=== PATIENT | female | born 1990 | race Caucasian/White ===

== ENCOUNTER 2017-02-01 11:13 | Emergency (ER) | payer BC, OTHER ==
[~2017-02-01] VITALS: Ht 165.1 cm; Wt 86.3 kg
[2017-02-01 11:14] VITALS: TEMP 36.8; Ht 165.1 cm; Wt 86.3 kg
[2017-02-01] MEDS ORDERED: SULF800T23 PO (11:33)
[2017-02-01] MEDS ORDERED: RANI300T2 PO (11:33)
[2017-02-01] MEDS ORDERED: BCPILLS PO (11:33)
[2017-02-01] MEDS ORDERED: PRLSR20 PO (11:33)
[2017-02-01] MEDS ORDERED: DIPH25TA32 PO (11:33)
[2017-02-01] MEDS ORDERED: CETI10TA10 PO (11:33)
[2017-02-01] MEDS ORDERED: PRED-301 PO (11:33)
[2017-02-01] MEDS ORDERED: CEFTRIAXONE SOD INJ 1 GM ADDVIAL IV STA (12:08)
--- NOTE | 2017-02-01 14:22 | DIAGNOSTIC IMAGING REPORT ---
LEFT LABIAL ULTRASOUND CLINICAL HISTORY: Labial mass COMPARISON STUDY: No previous studies for comparison. FINDINGS: There is left labial soft tissue edema. There are no focal fluid collections to indicate an abscess. No solid masses are visualized. IMPRESSION: 1. Left labial soft tissue edema. 2. No ultrasonographic evidence of abscess Electronically signed by: Jake Tesfaye M.D. 02/01/2017 2:21 PM Dictated Date/Time: 02/01/2017 2:19 PM
[2017-02-01] MEDS ORDERED: CEPH500C2 PO (15:13)
--- NOTE | 2017-02-01 15:14 | EMERGENCY ROOM VISIT NOTE ---
History First contact with patient: 11:38 Chief Complaint: INFECTION Stated Complaint: PAIN/SWELLING ON VAGINA Nursing Triage Summary: Patient states she got poison Jennifer 2 weeks ago, in her vaginal area. 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 Swelling external vaginal area per patient. History of Present Illness Patient is a 26-year-old white female who presents emergency department for evaluation of a tender, swollen lump in her left labial/pelvic region 2-3 days. Patient reports that she was at a campfire 2 weeks ago, fell into some weeds and did not realize that there were likely poison jennifer plants there when she fell. She developed a typical contact dermatitis primarily on her arms, chest, face and slightly on her upper thighs. She was seen by her primary care provider on several occasions for this. She received 2 doses of IM Solu-Medrol , one last week and one this week. She has been on oral prednisone as well. She was applying topical steroid cream and calamine lotion to the area, but after seeing her doctor this week she was encouraged to discontinue this and just use a topical Aveeno wash and oral Benadryl. She was also started on Bactrim DS 1 tablet twice daily 3 days ago for concerns regarding a superimposed cellulitis/impetigo. The patient noted a slightly tender, swollen lump in the left labial area 2 or 3 days ago. She tried applying warm compresses to the area. She was seen by the nurse practitioner at the supervisor mails office today, and they did not believe that it was "drainable." They were concerned it could be the beginnings of cellulitis, and referred her to the emergency department for IV antibiotics. Patient reports that the practitioner suggested Keflex therapy. The patient's is taking the prednisone, Benadryl, Bactrim and ranitidine as prescribed. She denies any urinary symptoms. No vaginal discharge. No fever or chills. She is on oral contraceptives and states that she is due for her menses next week. She does note that the poison jennifer dermatitis is scabbing over and is improving. Review of Systems Review of systems as per HPI. All other systems reviewed were negative. 10 systems reviewed. Past Medical/Surgical History Medical Problems: (1) Closed head injury (2) Environmental and seasonal allergies (3) GERD (gastroesophageal reflux disease) Electronic medical records are reviewed and summarized as above/below. See Problem List. Social History Smoking Status: Former Smoker Alcohol Use: occasionally Marital Status: Housing Status: lives with family Occupation Status: employed Current/Historical Medications Scheduled Control Pills ( Control Pills), 1 TAB PO DAILY Cephalexin Monohydrate (Keflex), 500 MG PO QID Cetirizine Hcl (Zyrtec), 10 MG PO DAILY Diphenhydramine Hcl (Diphenhydramine Hcl), 25 MG PO DAILY Prednisone (Prednisone), 0 PO UD Ranitidine Hcl (Zantac), 300 MG PO HS Sulfa/Trimethoprim (Bactrim Ds 800MG/160MG), 1 TAB PO BID Scheduled PRN Omeprazole (Prilosec), 20 MG PO DAILY PRN for Indigestion Allergies Coded Allergies: Molds & Smuts (Unverified Allergy, Unknown, ., 02/01/17) POLLEN (Unverified Allergy, Unknown, ., 02/01/17) Physical Exam Vital Signs Date Time Temp Pulse Resp B/P (MAP) Pulse Ox O2 Delivery O2 Flow Rate FiO2 02/01/17 15:20 68 18 142/95 100 02/01/17 13:45 74 18 127/85 98 Room Air 02/01/17 11:14 36.8 80 17 165/103 100 Room Air Physical Exam CONSTITUTIONAL: Patient is a pleasant, well-appearing 26-year-old white female who is awake and alert and in no acute distress. : Examination of the external genitalia show slight swelling of the left labia majora. There is a palpable masses noted on the left, slightly tender to palpation. There is no fluctuance or pointing. There is no increased redness, induration or overtly cellulitic changes. The patient does not appear to communicate with the vaginal vault. It does not appear consistent with atypical Bartholin's gland cyst/abscess. There is no palpable inguinal lymphadenopathy noted. INTEGUMENTARY: The patient has an erythematous, crusted over, slightly excoriated rash noted on her arms, chest and face slightly. No vesicles are noted. No drainage present. No cellulitic changes. LYMPH: No lymphadenopathy. Medical Decision & Procedures ER Provider Diagnostic Interpretation: LEFT LABIAL ULTRASOUND CLINICAL HISTORY: Labial mass COMPARISON STUDY: No previous studies for comparison. FINDINGS: There is left labial soft tissue edema. There are no focal fluid collections to indicate an abscess. No solid masses are visualized. IMPRESSION: 1. Left labial soft tissue edema. 2. No ultrasonographic evidence of abscess Medications Administered Medications (Trade) Dose Ordered Sig/Jennifer Route Start Time Stop Time Status Last Admin Dose Admin Ceftriaxone Sodium (Rocephin Inj) 1 gm NOW STAT IV 02/01/17 12:08 02/01/17 12:10 DC 02/01/17 12:20 1 GM ED Course The patient was seen and evaluated as above. IV lock was initiated and she was given ceftriaxone 1 g IV. Ultrasound of the point of interest at the left labial area was ultrasounded and noted soft tissue swelling, no evidence for localized abscess or drainable fluid collection. Patient is already on Bactrim. She will be placed on Keflex as well. Differential diagnoses entertained include abscess, cellulitis, sebaceous cysts, Bartholin gland cyst/ abscess, among others. She does not have any evidence for Ceci's gangrene. She was encouraged to apply warm compresses, take the antibiotics as prescribed, and return to the emergency department for worsening symptoms. Medication reconciliation: I attest that I have personally reviewed the patient' s current medication list. Blood pressure screening: Patient was found to have a slightly elevated blood pressure due to circumstances. I do not believe that the patient requires hypertension monitoring. Medical Decision See Emergency Department course. Impression Primary Impression: Swelling of labia Departure Information Prescriptions Cephalexin Monohydrate (KEFLEX) 500 Mg Cap 500 MG PO QID, #40 CAP Prov: Zina Logan PA 02/01/17 Referrals Nitin Cabrera M.D. (PCP) Patient Instructions My [facility] Additional Instructions Cephalexin(Keflex) 500mg: Take one pill four times daily for 10 days for your skin infection. All antibiotics can cause diarrhea. If this occurs and you feel worse or it does not resolve in 1-2 days follow up with your doctor or return to the Emergency Department as this could be signs of serious underlying problems. Any medication can cause an allergic reaction, stop the pills immediately and return to the ER for rash, hives, breathing difficulties, or swelling. Continue Bactrim as previously prescribed. Ibuprofen(Motrin, Advil) may be used for fever or pain. Use 600mg every six hours as needed. Take with food. Avoid using more than 2400mg in a 24 hour period. Do not use 2400mg per day for more than three consecutive days without physician direction. Prolonged inappropriate use can lead to stomach upset or ulcers. (AND/OR) Acetaminophen(Tylenol) may be used for fever or pain. Use 1000mg every six hours as needed. Avoid using more than 3000mg in a 24 hour period. Warm compresses to the affected area 4 times daily for 15-20 minutes. Rest and drink plenty of fluids. Continue current medications. Return to the ER for severe pain, persistent fevers, spreading redness, or any worsening of your condition. Follow up with your primary physician within 2-3 days for a recheck of the current condition.
[2017-02-01 15:20] VITALS: BP 142/95; PULSE 68; O2SAT 100
== END 2017-02-01 15:21 | disposition home or self-care (01) ==
LOC: C.EDB 11:14 → C.EDC 15:21
DX: N76.89 Other specified inflammation of vagina and vulva (principal); Z79.3 Long term (current) use of hormonal contraceptives; K21.9 Gastro-esophageal reflux disease without esophagitis; Z87.891 Personal history of nicotine dependence; Z79.899 Other long term (current) drug therapy

== ENCOUNTER 2019-07-28 16:05 | Inpatient (IN) ==
[2019-07-28 17:27] LABS: Basophils # (auto) 0.03 K/uL (0-0.2); Basophils % (auto) 0.2 %; Eosinophils # (auto) 0.09 K/uL (0-0.5); Eosinophils % (auto) 0.6 %; Hemoglobin 13.2 g/dL (12.0-16.0); Immature Granulocytes # (auto) 0.11 K/uL (0.00-0.02); Immature Granulocytes % (auto) 0.7 %; Lymphocytes # (auto) 2.46 K/uL (1.2-3.4); Lymphocytes % (auto) 15.8 %; Mean Corpuscular Hemoglobin 32.9 pg (25-34); Mean Corpuscular Volume 94.8 fL (80-100); Mean Platelet Volume 11.2 fL (7.4-10.4); Monocytes # (auto) 1.17 K/uL (0.11-0.59); Monocytes % (auto) 7.5 %; Neutrophils % (auto) 75.2 %; Platelet Count 225 K/uL (130-400); RDW Coefficient of Variation 13.1 % (11.5-14.5); RDW Standard Deviation 44.9 fL (36.4-46.3); Red Blood Count 4.01 M/uL (4.2-5.4); White Blood Count 15.56 K/uL (4.8-10.8)
[2019-07-28 17:28] LABS: Mean Corpuscular Hgb Conc 34.7 g/dL (32-36)
[2019-07-28 17:52] LABS: Albumin Level 2.6 gm/dl (3.4-5.0); BUN Creatinine Ratio 19.7 (10-20); Calcium 8.8 mg/dl (8.5-10.1); Creatinine Clr Calc Pharmacy 169.6 ml/min; Est GFR (African American) 139.3; Est GFR (Non-African American) 120.2; Potassium 3.7 mmol/L (3.5-5.1); Uric Acid 4.9 mg/dl (2.6-7.2)
[2019-07-28 17:55] LABS: Albumin Globulin Ratio 0.7 (0.9-2); Bilirubin Direct 0.1 mg/dl (0-0.2); Bilirubin,Total 0.3 mg/dl (0.2-1); Globulin 3.7 gm/dl (2.5-4.0); Total Protein 6.3 gm/dl (6.4-8.2)
[2019-07-28 19:02] LABS: Creatinine Urine Random 55.2 mg/dl; Protein Creatinine Ratio Urine 0.6 (0-0.2); Total Protein Urine Random 33.8 mg/dl (0-11.9)
[2019-07-28] MEDS ORDERED: DINOPROSTONE 10 MG INSERT PV ONE (20:13)
[2019-07-28] MEDS ORDERED: OXYTOCIN 30 UNITS/500 ML BAG IV PRN (20:13)
--- NOTE | 2019-07-28 20:21 | Obstetrical Progress Note ---
Date of Service July 28, 2019 Results & Data Vital Signs (Past 12 Hours) Vital Signs Temp Pulse Resp BP 07/28/19 19:49 96 H 154/92 H 07/28/19 19:31 100 H 157/98 H 07/28/19 19:26 36.8 C 18 157/98 H 07/28/19 19:19 104 H 153/96 H 07/28/19 18:49 99 H 157/95 H 07/28/19 18:07 103 H 152/89 H 07/28/19 17:52 95 H 148/92 H 07/28/19 17:37 93 H 148/97 H 07/28/19 17:25 90 162/101 H 07/28/19 17:07 102 H 149/95 H 07/28/19 17:00 36.7 C 20 07/28/19 16:52 98 H 160/100 H 07/28/19 16:38 36.7 C 98 H 20 155/93 H 07/28/19 16:24 98 H 167/100 H
--- NOTE | 2019-07-28 21:37 | Obstetrical Progress Note ---
Date of Service July 28, 2019 Physical Exam Physical Exam: Cervidil placed vaginally. Results & Data Vital Signs (Past 12 Hours) Vital Signs Temp Pulse Resp BP 07/28/19 21:18 98 H 164/95 H 07/28/19 20:19 93 H 151/100 H 07/28/19 19:49 96 H 154/92 H 07/28/19 19:31 100 H 157/98 H 07/28/19 19:26 36.8 C 18 157/98 H 07/28/19 19:19 104 H 153/96 H 07/28/19 18:49 99 H 157/95 H 07/28/19 18:07 103 H 152/89 H 07/28/19 17:52 95 H 148/92 H 07/28/19 17:37 93 H 148/97 H 07/28/19 17:25 90 162/101 H 07/28/19 17:07 102 H 149/95 H 07/28/19 17:00 36.7 C 20 07/28/19 16:52 98 H 160/100 H 07/28/19 16:38 36.7 C 98 H 20 155/93 H 07/28/19 16:24 98 H 167/100 H
[2019-07-28] MEDS ORDERED: VALACYCLOVIR HCL 500 MG TABLET PO ONE (23:32)
[2019-07-28] MEDS ORDERED: DOCUSATE SODIUM 100 MG CAP PO ONE (23:36)
[2019-07-28] MEDS ORDERED: PRENATAL VITAMIN 1 TAB PO ONE (23:37)
--- NOTE | 2019-07-29 10:50 | Obstetrical Progress Note ---
Date of Service July 29, 2019 Subjective Induction for Preeclampsia. pt received Cervidil yesterday Bp stable Am labs pending FHR; CAT1 Ctx; minimal VE; /50/-3 bedside sono; Vt Cytotec Pt agrees with plan Results & Data Vital Signs (Past 12 Hours) Vital Signs Temp Pulse Resp BP 07/29/19 10:33 87 138/67 07/29/19 09:28 94 H 130/87 07/29/19 08:20 81 139/76 07/29/19 07:30 92 H 119/69 07/29/19 07:25 36.9 C 20 07/29/19 06:14 83 142/78 H 07/29/19 06:12 88 172/102 H 07/29/19 05:38 85 150/94 H 07/29/19 04:46 36.8 C 85 144/68 H 07/29/19 03:46 86 139/87 07/29/19 02:40 90 125/83 07/29/19 01:34 87 135/85 07/29/19 00:47 84 139/89 07/28/19 23:43 96 H 138/61 07/28/19 23:41 90 183/72 H 07/28/19 23:00 36.8 C 85 16 149/98 H
[2019-07-29] MEDS: miSOPROStoL 50 MCG TAB PO SCH ×2 (11:21→15:47)
[2019-07-29 11:25] LABS: Basophils # (auto) 0.03 K/uL (0-0.2); Basophils % (auto) 0.2 %; Eosinophils # (auto) 0.09 K/uL (0-0.5); Eosinophils % (auto) 0.7 %; Hematocrit (blood only) 37.9 % (37-47); Hemoglobin 12.9 g/dL (12.0-16.0); Immature Granulocytes # (auto) 0.07 K/uL (0.00-0.02); Immature Granulocytes % (auto) 0.6 %; Lymphocytes # (auto) 1.86 K/uL (1.2-3.4); Lymphocytes % (auto) 14.8 %; Mean Corpuscular Hemoglobin 32.8 pg (25-34); Mean Corpuscular Volume 96.4 fL (80-100); Mean Platelet Volume 11.1 fL (7.4-10.4); Monocytes # (auto) 1.11 K/uL (0.11-0.59); Monocytes % (auto) 8.8 %; Neutrophils # (auto) 9.43 K/uL (1.4-6.5); Neutrophils % (auto) 74.9 %; Platelet Count 226 K/uL (130-400); RDW Coefficient of Variation 13.2 % (11.5-14.5); RDW Standard Deviation 45.6 fL (36.4-46.3); Red Blood Count 3.93 M/uL (4.2-5.4); White Blood Count 12.59 K/uL (4.8-10.8)
[2019-07-29 11:42] LABS: Albumin Level 2.3 gm/dl (3.4-5.0); BUN Creatinine Ratio 15.5 (10-20); Calcium 8.9 mg/dl (8.5-10.1); Creatinine Clr Calc Pharmacy 172.4 ml/min; Est GFR (Non-African American) 120.8
[2019-07-29 11:44] LABS: Albumin Globulin Ratio 0.7 (0.9-2); Bilirubin,Total 0.3 mg/dl (0.2-1); Globulin 3.4 gm/dl (2.5-4.0); Total Protein 5.7 gm/dl (6.4-8.2)
[2019-07-29] MEDS ORDERED: VALACYCLOVIR HCL 500 MG TABLET PO ONE (17:35)
--- NOTE | 2019-07-29 21:37 | Obstetrical Progress Note ---
Date of Service July 29, 2019 Subjective Pt doing well No complaints FHR; CAT1 Ctx 1-2mins will start Pitocin Results & Data Vital Signs (Past 12 Hours) Vital Signs Temp Pulse Resp BP 07/29/19 20:39 85 143/98 H 07/29/19 19:36 84 155/93 H 07/29/19 19:35 36.8 C 18 07/29/19 18:03 86 147/90 H 07/29/19 15:47 36.7 C 88 20 140/95 07/29/19 13:40 83 149/94 H 07/29/19 12:27 94 H 147/91 H 07/29/19 11:22 36.7 C 93 H 20 140/90 07/29/19 10:33 87 138/67
[2019-07-29] MEDS ORDERED: OXYTOCIN 30 UNITS/500 ML BAG IV PRN (22:57)
[2019-07-30] MEDS: LACTATED RINGER'S 1,000 ML IV PRN ×5 (00:05→18:38)
[2019-07-30] MEDS ORDERED: fentaNYL 2MCG/ML ROPIV 1.25MG/ML 100 ML BAG EPI ONE (05:00)
[2019-07-30] MEDS ORDERED: BUPIVACAINE 0.25% 30 ML VIAL ONE (05:00)
[2019-07-30] MEDS ORDERED: ePHEDrine sulfate 50 MG/ML AMP ONE (05:00)
[2019-07-30] MEDS ORDERED: fentaNYL citrate 100 MCG/2 ML VIAL ONE (05:00)
--- NOTE | 2019-07-30 05:03 | Obstetrical Progress Note ---
Date of Service July 30, 2019 Subjective Called to evaluate pt with moderate bleeding Pit; 18Mu Pitocin d/batsheva and IVF inc to 999/hr VE: 4/50/-2 with moderate amount of clots FHR; Poor tracing quality scalp and IUPC placed FHR is CAT1 and ctx 1-2mins Placenta abruption labs ordered Results & Data Vital Signs (Past 12 Hours) Vital Signs Temp Pulse Resp BP 07/30/19 03:46 89 145/87 H 07/30/19 03:43 36.7 C 18 07/30/19 02:49 82 139/87 07/30/19 01:46 80 142/90 H 07/30/19 00:37 78 138/85 07/29/19 23:25 36.7 C 18 07/29/19 23:24 85 136/81 07/29/19 21:54 83 154/102 H 07/29/19 21:51 83 175/109 H 07/29/19 20:39 85 143/98 H 07/29/19 19:36 84 155/93 H 07/29/19 19:35 36.8 C 18 07/29/19 18:03 86 147/90 H
[2019-07-30 05:23] LABS: Basophils # (auto) 0.03 K/uL (0-0.2); Basophils % (auto) 0.2 %; Eosinophils # (auto) 0.14 K/uL (0-0.5); Eosinophils % (auto) 0.8 %; Hematocrit (blood only) 38.1 % (37-47); Hemoglobin 13.1 g/dL (12.0-16.0); Immature Granulocytes # (auto) 0.19 K/uL (0.00-0.02); Lymphocytes # (auto) 2.09 K/uL (1.2-3.4); Lymphocytes % (auto) 11.5 %; Mean Corpuscular Hemoglobin 32.9 pg (25-34); Mean Corpuscular Volume 95.7 fL (80-100); Monocytes # (auto) 1.26 K/uL (0.11-0.59); Monocytes % (auto) 6.9 %; Neutrophils # (auto) 14.46 K/uL (1.4-6.5); Neutrophils % (auto) 79.6 %; Platelet Count 207 K/uL (130-400); RDW Coefficient of Variation 13.1 % (11.5-14.5); RDW Standard Deviation 45.3 fL (36.4-46.3); Red Blood Count 3.98 M/uL (4.2-5.4); White Blood Count 18.17 K/uL (4.8-10.8)
[2019-07-30 05:31] LABS: Mean Corpuscular Hgb Conc 34.4 g/dL (32-36)
--- NOTE | 2019-07-30 05:34 | Anesthesiology Consultation ---
Date of Service July 30, 2019 Assessment & Plan Chart Review Chart Review: Acceptable Risk for Surgery, Patient NOT seen in Pre Admission Testing and Acceptable Risk for Labor Epidural Consults Requested none ASA ASA3 Proposed Anesthesia Anesthesia Type: General and Labor Epidural Risk / Benefits Reviewed With: PT / POA / Parent / Guardian, Accepts Plan and Informed Consent Obtained History Height/Weight Height: 5 ft 5 in Weight: 118.841 kg Allergies Allergy/AdvReac Type Severity Reaction Status Date / Time mold Allergy Unknown . Verified 07/28/19 17:44 pollen extracts Allergy Unknown . Verified 07/28/19 17:44 Medications Home Medications Medication Instructions Recorded Confirmed Last Taken cetirizine [Zyrtec] 10 mg PO DAILY 07/28/19 07/28/19 07/27/19 21:00 docusate sodium [Colace] 100 mg PO DAILY 07/28/19 07/28/19 07/27/19 21:00 vit-iron fum-folic ac 1 tab PO DAILY 07/28/19 07/28/19 07/27/19 21:00 [ Vitamin] valacyclovir [Valtrex] 500 mg PO DAILY 07/28/19 07/28/19 07/27/19 21:00 Active Medications Generic Name Dose Route Start Last Admin Trade Name Freq PRN Reason Stop Dose Admin Lactated Ringer's 1,000 mls @ 125 mls/hr 07/28/19 20:13 07/30/19 00:05 Lr IV 07/30/19 20:12 125 mls/hr .Q8H PRN Administration L&D Protocol Protocol Oxytocin 30 units in 500 mls @ 18 mls/hr 07/29/19 22:57 07/30/19 04:15 Pitocin IV 07/31/19 22:56 1.08 units/hr .Q24H PRN 18 mls/hr Labor Induction/Augmentation Titration Protocol 1.08 UNITS/HR Misoprostol 50 mcg 07/29/19 12:00 07/29/19 15:47 Cytotec PO 08/28/19 11:59 50 mcg Q4 HUMBERTO Administration NPO Date Last Intake of Fluids: 07/30/19 Time Last Intake of Fluids: 04:00 Date Last Intake of Solids: 07/29/19 Time Last Intake of Solids: 20:00 Past Medical History Medical History Migraine Exercise / Class Metabolic Activity II 4-5 Yardwork/Stairs/Walk up hill Past Anesthesia History No Hx of Anesthesia Complications and No Family Hx of Anesthesia Complications History of PONV No Hx of PONV and No Hx of Motion Sickness Social History Smoking Status: Former smoker Hx Alcohol Use: No Hx Substance Use: No substance use type: does not use Physical Exam Vital Signs Last Vital Signs Temp 36.7 C 07/30/19 03:43 Pulse 110 H 07/30/19 05:30 Resp 18 07/30/19 03:43 BP 140/96 07/30/19 05:22 Pulse Ox 89 L 07/30/19 05:30 Constitutional + morbidly obese ENMT Mouth: no dentition abnormality Thyromental Distance: < 3.5 Finger Breadths Mallampati Class: II Neck normal visual inspection and trachea midline; neck extension not limited Respiratory normal respiratory effort Auscultation: lungs clear to auscultation bilaterally Cardiovascular Rate/Rhythm: regular rate, regular rhythm and + tachycardic Heart Sounds: no murmur Musculoskeletal Spine: lumbar spine normal to inspection; normal cervical ROM Neurologic moves all extremities Motor/Sensory: no sensory deficit Psychiatric Orientation: alert and oriented x 3 Testing Laboratory Results 07/30/19 05:09 07/29/19 10:56
[2019-07-30 05:56] LABS: Fibrinogen 351 mg/dl (184-400)
[2019-07-30] MEDS ORDERED: NALOXONE HCL 1 MG in SODIUM CHLORIDE 0.9% 1000ML 1,000 ML IV PRN (06:02)
[2019-07-30] MEDS ORDERED: ONDANSETRON INJ 2 MG/ML 2 ML VIAL IV PRN (06:02)
[2019-07-30] MEDS ORDERED: NALBUPHINE HCL INJ 10 MG/ML AMP IV PRN (06:02)
[2019-07-30] MEDS ORDERED: DiphenhydrAMINE HCL 50 MG/ML VIAL IV PRN (06:02)
[2019-07-30] MEDS ORDERED: ePHEDrine sulfate 50 MG/ML AMP IV PRN (06:02)
[2019-07-30] MEDS ORDERED: NALOXONE HCL 0.4 MG/1 ML VIAL/CARP IV PRN (06:02)
[2019-07-30] MEDS ORDERED: PROMETHAZINE HCL 25 MG in SODIUM CHLORIDE 0.9% 50 ML IV PRN (06:02)
[2019-07-30] MEDS: fentaNYL 2MCG/ML ROPIV 1.25MG/ML 100 ML BAG EPI PRN ×2 (12:57→18:36)
[2019-07-30] MEDS ORDERED: CALCIUM CARBONATE 500 MG CHEWABLE TAB PO PRN (15:52)
[2019-07-30] MEDS ORDERED: CALCIUM CARBONATE 500 MG CHEWABLE TAB ONE (15:53)
--- NOTE | 2019-07-30 16:27 | Obstetrical Progress Note ---
Date of Service July 30, 2019 Physical Exam Genitourinary: OB Exam Abdomen: + irregular contractions Manual OB Exam: + cervical dilation 10 cm, + cervical effacement 100%, + station 0 and + amniotic fluid bloody OB Exam Monitor Tracing: + scalp electrode used, + external uterine monitor used and + category I will let patient labor down and increase Oxytocin patient not able to feel contractions Results & Data Vital Signs (Past 12 Hours) Vital Signs Temp Pulse Resp BP Pulse Ox 07/30/19 16:23 101 H 92 07/30/19 16:18 102 H 94 07/30/19 16:15 99 H 119/74 07/30/19 16:13 113 H 95 07/30/19 16:08 102 H 93 07/30/19 16:03 106 H 94 07/30/19 16:00 105 H 124/84 07/30/19 15:58 110 H 93 07/30/19 15:53 121 H 91 07/30/19 15:49 118 H 80 L 07/30/19 15:48 108 H 95 07/30/19 15:45 114 H 122/80 07/30/19 15:43 119 H 93 07/30/19 15:38 117 H 79 L 07/30/19 15:33 115 H 96 07/30/19 15:30 109 H 133/86 07/30/19 15:28 133 H 84 L 07/30/19 15:26 112 H 83 L 07/30/19 15:23 112 H 96 07/30/19 15:22 118 H 160/84 H 07/30/19 15:18 121 H 98 07/30/19 15:17 133 H 169/86 H 07/30/19 15:16 121 H 84 L 07/30/19 15:13 111 H 100 07/30/19 15:08 107 H 97 07/30/19 15:03 103 H 99 07/30/19 15:02 100 H 161/99 H 07/30/19 14:58 108 H 99 07/30/19 14:57 36.7 C 20 07/30/19 14:53 101 H 100 07/30/19 14:48 100 H 97 07/30/19 14:45 96 H 144/92 H 07/30/19 14:43 95 H 97 07/30/19 14:38 97 H 96 07/30/19 14:33 107 H 97 07/30/19 14:31 101 H 18 145/87 H 07/30/19 14:28 96 H 95 07/30/19 14:23 112 H 95 07/30/19 14:18 107 H 95 07/30/19 14:16 95 H 20 133/84 07/30/19 14:13 89 93 07/30/19 14:08 95 H 92 07/30/19 14:03 93 H 96 07/30/19 14:00 101 H 20 133/87 07/30/19 13:58 94 H 95 07/30/19 13:53 91 H 94 07/30/19 13:48 96 H 95 07/30/19 13:45 93 H 136/86 07/30/19 13:43 96 H 96 07/30/19 13:38 99 H 97 07/30/19 13:33 99 H 98 07/30/19 13:30 98 H 18 140/90 07/30/19 13:28 107 H 91 07/30/19 13:23 94 H 97 07/30/19 13:18 107 H 96 07/30/19 13:16 88 132/82 07/30/19 13:13 99 H 96 07/30/19 13:08 94 H 96 07/30/19 13:05 37.0 C 20 07/30/19 13:03 106 H 100 07/30/19 13:02 102 H 134/93 07/30/19 12:58 96 H 97 07/30/19 12:57 18 07/30/19 12:53 98 H 96 07/30/19 12:48 98 H 96 07/30/19 12:45 98 H 130/90 07/30/19 12:43 103 H 95 07/30/19 12:38 94 H 93 07/30/19 12:33 89 94 07/30/19 12:30 93 H 20 127/82 07/30/19 12:28 87 94 07/30/19 12:23 89 94 07/30/19 12:18 109 H 94 07/30/19 12:15 90 137/83 07/30/19 12:13 90 95 07/30/19 12:08 92 H 97 07/30/19 12:03 94 H 98 07/30/19 12:00 93 H 146/88 H 07/30/19 11:58 101 H 98 07/30/19 11:53 98 H 97 07/30/19 11:48 98 H 97 07/30/19 11:45 94 H 16 146/92 H 07/30/19 11:43 92 H 98 07/30/19 11:38 97 H 98 07/30/19 11:33 91 H 97 07/30/19 11:30 100 H 147/88 H 07/30/19 11:28 101 H 98 07/30/19 11:23 98 H 99 07/30/19 11:18 96 H 98 07/30/19 11:15 98 H 147/82 H 07/30/19 11:13 100 H 98 07/30/19 11:08 102 H 97 07/30/19 11:03 95 H 98 07/30/19 11:02 100 H 148/91 H 07/30/19 10:58 36.8 C 20 07/30/19 10:57 103 H 97 07/30/19 10:52 96 H 95 07/30/19 10:47 111 H 97 07/30/19 10:45 98 H 139/91 07/30/19 10:42 95 H 96 07/30/19 10:37 105 H 99 07/30/19 10:32 103 H 97 07/30/19 10:30 102 H 145/87 H 07/30/19 10:27 93 H 97 07/30/19 10:22 93 H 98 07/30/19 10:18 91 H 162/100 H 07/30/19 10:17 99 H 18 163/99 H 98 07/30/19 10:12 100 H 99 07/30/19 10:07 98 H 98 07/30/19 10:02 93 H 98 07/30/19 10:00 116 H 124/81 07/30/19 09:57 85 96 07/30/19 09:52 99 H 96 07/30/19 09:47 95 H 136/85 98 07/30/19 09:42 90 94 07/30/19 09:37 82 96 07/30/19 09:32 95 H 96 07/30/19 09:31 92 H 18 132/80 07/30/19 09:27 93 H 97 07/30/19 09:22 89 97 07/30/19 09:17 87 98 07/30/19 09:16 90 124/72 07/30/19 09:12 90 98 07/30/19 09:07 118 H 98 07/30/19 09:05 36.7 C 18 07/30/19 09:02 94 H 97 07/30/19 09:00 99 H 121/59 L 07/30/19 08:57 101 H 96 07/30/19 08:52 109 H 99 07/30/19 08:47 92 H 97 07/30/19 08:46 95 H 133/79 07/30/19 08:42 99 H 98 07/30/19 08:37 95 H 98 07/30/19 08:32 102 H 97 07/30/19 08:31 92 H 18 131/79 07/30/19 08:30 103 H 142/83 H 07/30/19 08:27 101 H 99 07/30/19 08:26 108 H 83 L 07/30/19 08:22 92 H 98 07/30/19 08:17 94 H 84 L 07/30/19 08:16 91 H 22 136/74 07/30/19 08:12 96 H 100 07/30/19 08:07 97 H 100 07/30/19 08:02 98 H 135/73 96 07/30/19 08:00 95 H 18 81 L 07/30/19 07:57 93 H 99 07/30/19 07:52 98 H 99 07/30/19 07:47 96 H 98 07/30/19 07:45 96 H 136/74 07/30/19 07:43 96 H 133/80 07/30/19 07:42 90 99 07/30/19 07:37 95 H 99 07/30/19 07:36 101 H 85 L 07/30/19 07:32 105 H 98 07/30/19 07:29 106 H 82 L 07/30/19 07:27 97 H 98 07/30/19 07:22 94 H 98 07/30/19 07:17 97 H 98 07/30/19 07:15 36.7 C 18 07/30/19 07:14 86 119/66 07/30/19 07:12 84 95 07/30/19 07:09 86 122/66 07/30/19 07:07 87 98 07/30/19 07:06 88 126/67 07/30/19 07:02 87 97 07/30/19 07:00 86 18 120/66 07/30/19 06:57 88 99 07/30/19 06:55 99 H 124/73 07/30/19 06:52 103 H 94 07/30/19 06:49 90 122/72 07/30/19 06:47 94 H 99 07/30/19 06:44 91 H 114/68 07/30/19 06:42 87 100 07/30/19 06:41 90 118/67 07/30/19 06:36 89 117/68 100 07/30/19 06:35 36.7 C 07/30/19 06:31 95 H 90 07/30/19 06:30 95 H 18 112/60 94 07/30/19 06:26 81 101/52 L 07/30/19 06:25 86 98 07/30/19 06:24 94 H 92 07/30/19 06:21 94 H 119/80 07/30/19 06:20 86 99 07/30/19 06:15 96 H 98 07/30/19 06:14 82 104/59 L 07/30/19 06:12 86 112/57 L 07/30/19 06:10 88 109/63 97 07/30/19 06:08 87 111/57 L 07/30/19 06:07 87 92 07/30/19 06:06 83 102/59 L 07/30/19 06:05 87 98 07/30/19 06:04 83 111/62 07/30/19 06:02 83 104/58 L 07/30/19 06:00 80 18 96/55 L 96 07/30/19 05:57 81 103/50 L 07/30/19 05:55 81 96 07/30/19 05:54 80 79/52 L 94 07/30/19 05:52 71 87/53 L 07/30/19 05:51 67 85/54 L 07/30/19 05:50 73 94 07/30/19 05:48 68 94 07/30/19 05:46 75 99/67 L 07/30/19 05:45 75 94 07/30/19 05:43 67 94 07/30/19 05:41 62 94/59 L 07/30/19 05:40 71 95 07/30/19 05:37 104 H 92 07/30/19 05:35 96 H 95 07/30/19 05:30 110 H 89 L 07/30/19 05:25 93 H 96 07/30/19 05:24 103 H 93 07/30/19 05:22 106 H 140/96 07/30/19 05:20 105 H 99 07/30/19 05:15 95 H 97 07/30/19 05:10 93 H 96 07/30/19 05:05 92 H 97
[2019-07-30] MEDS ORDERED: ACETAMINOPHEN 325 MG TAB PO PRN ×2 (19:29→21:22)
[2019-07-30] MEDS ORDERED: BENZOCAINE 20% AER SPR 82.5 GM CAN EXT PRN (21:22)
[2019-07-30] MEDS ORDERED: SUPERCREAM 0.870% 15 GM JAR EXT PRN (21:22)
[2019-07-30] MEDS ORDERED: MEASLES, MUMPS & RUBELLA VIRUS VIAL SQ ONE (21:22)
[2019-07-30] MEDS ORDERED: OXYTOCIN 30 UNITS/500 ML BAG IV PRN (21:22)
[2019-07-30] MEDS ORDERED: bisacodyL 10 MG SUPP PR PRN (21:22)
[2019-07-30] MEDS ORDERED: DIPHTHERIA/TETANUS/PERTUSSIS 0.5 ML SYR/VIAL IM ONE (21:22)
[2019-07-30] MEDS ORDERED: HYDROCORTISONE ACETATE 25 MG SUPP PR PRN (21:22)
--- NOTE | 2019-07-30 21:28 | Delivery Summary ---
Vaginal Delivery Summary Date of Service July 30, 2019 Vaginal Delivery Summary Delivery Note live female NOA with delayed cord clamping Apgars 8/10 and weight pending. Cord blood obtained and placenta delivered spontaneously and intact. Velamentous insertion and submitted to pathology. NO tears. EBL 250 ml. Final sponge and instrument count are correct. Mom and baby stable.
--- NOTE | 2019-07-30 23:48 | Anesthesia Procedure Note ---
Date of Service July 30, 2019 Anesthesia Post Epidural Note Vital Signs Vital Signs: Temp Pulse Resp BP Pulse Ox 37.0 C 108 H 18 133/78 93 07/30/19 21:15 07/30/19 23:25 07/30/19 22:15 07/30/19 23:15 07/30/19 23:25 Notes Mental Status: alert / awake / arousable and participated in evaluation Nausea / Vomiting: adequately controlled Pain: adequately controlled Airway Patency, RR, SpO2: stable & adequate BP & HR: stable & adequate Hydration State: stable & adequate Neuraxial Anesthesia: was administered and sensory block is resolving Anesthetic Complications: no major complications apparent and Pt Satisfied with anesthetic care Epidural: Removed without complications and With tip intact
[2019-07-31] MEDS: IBUPROFEN 600 MG TAB PO PRN ×4 (03:49→20:59)
[2019-07-31 05:56] LABS: Hemoglobin 10.5 g/dL (12.0-16.0); Mean Corpuscular Hemoglobin 33.2 pg (25-34); Mean Corpuscular Volume 94.9 fL (80-100); Platelet Count 199 K/uL (130-400); RDW Coefficient of Variation 13.2 % (11.5-14.5); RDW Standard Deviation 46.4 fL (36.4-46.3); Red Blood Count 3.16 M/uL (4.2-5.4); White Blood Count 19.61 K/uL (4.8-10.8)
[2019-07-31] MEDS: PRENATAL VITAMIN 1 TAB PO SCH (08:21)
[2019-07-31] MEDS: DOCUSATE SODIUM 100 MG CAP PO SCH ×2 (08:21→20:59)
[2019-07-31] MEDS: FERROUS SULFATE 325 MG TAB PO SCH (08:23)
--- NOTE | 2019-07-31 08:42 | Obstetrical Progress Note ---
Date of Service July 31, 2019 Assessment & Plan (1) normal course: PPD #1 pt doing well Hypertension No headache, RUQ pain or SOB PIH labs pending Subjective Ambulation: ambulating normally Voiding: no voiding problems Passing Gas:: Yes Diet Tolerance:: regular diet Lochia:: Small Feeding Type:: breast feeding Review of Systems All systems reviewed & are unremarkable except as noted in HPI & below Physical Exam Constitutional WD/WN, vitals as above well developed and well nourished Eyes PERRL, conjunctivae normal, anicteric sclerae Neck trachea midline, no thyromegaly Respiratory normal respiratory effort, lungs clear to auscultation Auscultation: no crackles, no rales and no wheezes Cardiovascular RRR, no murmur, no edema Gastrointestinal (Abdomen) normal bowel sounds, soft, nontender, no hepatosplenomegaly Uterus is below umbilicus Musculoskeletal no cyanosis or clubbing, extremities motor strength 5/5 Skin no rashes, warm and dry Neurologic patellar DTR's 2+ bilat, sensation intact Psychiatric A+Ox3, euthymic affect Genitourinary normal external appearance Results & Data Vital Signs (Past 12 Hours) Vital Signs Temp Pulse Pulse Resp BP BP BP 07/31/19 04:30 143/95 H 07/31/19 03:50 36.9 C 101 H 16 155/101 H 154/100 H 07/30/19 23:50 36.8 C 98 H 16 144/94 H 07/30/19 23:25 108 H 07/30/19 23:20 108 H 07/30/19 23:15 108 H 18 133/78 07/30/19 23:10 105 H 07/30/19 23:05 106 H 07/30/19 23:00 93 H 134/88 07/30/19 22:55 105 H 07/30/19 22:50 99 H 07/30/19 22:45 96 H 18 124/77 07/30/19 22:40 105 H 07/30/19 22:35 106 H 07/30/19 22:30 104 H 132/79 07/30/19 22:25 105 H 07/30/19 22:20 105 H 07/30/19 22:15 106 H 18 146/96 H 07/30/19 22:10 103 H 07/30/19 22:05 114 H 12/12/19 22:00 108 H 139/92 07/30/19 21:55 110 H 07/30/19 21:50 108 H 07/30/19 21:45 112 H 136/88 07/30/19 21:40 119 H 07/30/19 21:35 108 H 07/30/19 21:34 111 H 07/30/19 21:30 101 H 18 132/83 07/30/19 21:25 109 H 07/30/19 21:20 118 H 07/30/19 21:15 37.0 C 116 H 18 124/76 07/30/19 21:10 115 H 07/30/19 21:05 132 H 07/30/19 21:02 18 07/30/19 21:00 146 H 07/30/19 20:59 131 H 07/30/19 20:55 141 H 07/30/19 20:54 163 H 07/30/19 20:50 125 H 07/30/19 20:48 123 H 07/30/19 20:45 115 H 18 146/91 H 07/30/19 20:43 126 H Pulse Ox 07/31/19 04:30 07/31/19 03:50 98 07/30/19 23:50 97 07/30/19 23:25 93 07/30/19 23:20 92 07/30/19 23:15 92 07/30/19 23:10 93 07/30/19 23:05 95 07/30/19 23:00 94 07/30/19 22:55 93 07/30/19 22:50 93 07/30/19 22:45 94 07/30/19 22:40 94 07/30/19 22:35 93 07/30/19 22:30 94 07/30/19 22:25 93 07/30/19 22:20 93 07/30/19 22:15 94 07/30/19 22:10 94 07/30/19 22:05 95 07/30/19 22:00 95 07/30/19 21:55 93 07/30/19 21:50 94 07/30/19 21:45 95 07/30/19 21:40 94 07/30/19 21:35 89 L 07/30/19 21:34 85 L 12/12/19 21:30 93 07/30/19 21:25 93 07/30/19 21:20 93 07/30/19 21:15 92 07/30/19 21:10 93 07/30/19 21:05 93 07/30/19 21:02 07/30/19 21:00 94 07/30/19 20:59 78 L 07/30/19 20:55 92 07/30/19 20:54 84 L 07/30/19 20:50 94 07/30/19 20:48 81 L 07/30/19 20:45 95 07/30/19 20:43 84 L
[2019-07-31] MEDS ORDERED: DOCUSATE SODIUM 100 MG CAP PO SCH (09:00)
[2019-07-31] MEDS ORDERED: NON-FORMULARY MEDICATION (Prenatal Vit-Iron Fum-Folic Ac [Prenatal Vitamin] 1 TAB) PO SCH (09:00)
[2019-07-31] MEDS ORDERED: CETIRIZINE HCL 10 MG TABLET PO SCH (09:30)
[2019-07-31 10:08] LABS: Albumin Level 1.8 gm/dl (3.4-5.0); BUN Creatinine Ratio 14.2 (10-20); Calcium 8.3 mg/dl (8.5-10.1); Creatinine Clr Calc Pharmacy 134.8 ml/min; Est GFR (African American) 117.4; Est GFR (Non-African American) 101.3; Potassium 3.8 mmol/L (3.5-5.1)
[2019-07-31 10:11] LABS: Albumin Globulin Ratio 0.6 (0.9-2); Bilirubin,Total 0.2 mg/dl (0.2-1); Globulin 3.1 gm/dl (2.5-4.0); Total Protein 4.9 gm/dl (6.4-8.2)
[2019-07-31] MEDS: CETIRIZINE HCL 10 MG TABLET PO SCH (10:53)
[2019-07-31] MEDS: LABETALOL HCL 200 MG TAB PO SCH ×2 (14:20→20:59)
[2019-07-31] MEDS ORDERED: bisacodyL 5 MG TABEC PO SCH (20:00)
[2019-08-01 06:48] LABS: Hemoglobin 9.4 g/dL (12.0-16.0)
[2019-08-01] MEDS: DOCUSATE SODIUM 100 MG CAP PO SCH (08:53)
[2019-08-01] MEDS: CETIRIZINE HCL 10 MG TABLET PO SCH (08:53)
[2019-08-01] MEDS: PRENATAL VITAMIN 1 TAB PO SCH (08:53)
[2019-08-01] MEDS: LABETALOL HCL 200 MG TAB PO SCH (08:53)
[2019-08-01] MEDS: IBUPROFEN 600 MG TAB PO PRN (08:54)
[2019-08-01] MEDS: FERROUS SULFATE 325 MG TAB PO SCH (09:07)
--- NOTE | 2019-08-01 09:50 | Obstetrical Progress Note ---
Date of Service August 01, 2019 Physical Exam Physical Exam: abdomen soft and non tender no calf tenderness ambulating well blood pressure controlled on labetalol 200 mg bid vaginal bleeding scant hgb 9.4 Results & Data Vital Signs (Past 12 Hours) Vital Signs Temp Pulse Resp BP BP 08/01/19 03:20 37 C 101 H 18 141/93 H 07/31/19 23:30 37 C 84 18 135/92
== END 2019-08-01 13:20 | disposition home or self-care (01) | DRG 807 ==
LOC: OPB 16:05 → 4S1 16:12 → 4S2 07-30 23:37

== ENCOUNTER 2023-03-02 16:44 | Inpatient (IN) ==
[2023-03-02 18:01] LABS: Basophils # (auto) 0.05 K/uL (0-0.2); Basophils % (auto) 0.4 %; Eosinophils # (auto) 0.07 K/uL (0-0.50); Eosinophils % (auto) 0.6 %; Immature Granulocytes # (auto) 0.05 K/uL (0.01-0.20); Immature Granulocytes % (auto) 0.4 %; Lymphocytes # (auto) 2.32 K/uL (1.2-3.4); Lymphocytes % (auto) 19.4 %; Mean Corpuscular Hgb Conc 34.3 g/dL (32.0-36.0); Mean Corpuscular Volume 90.4 fL (80.0-100.0); Mean Platelet Volume 10.7 fL (9.4-12.4); Monocytes # (auto) 0.71 K/uL (0.11-0.59); Monocytes % (auto) 5.9 %; Neutrophils # (auto) 8.74 K/uL (1.40-6.50); Neutrophils % (auto) 73.3 %; Platelet Count 232 K/uL (130-400); RDW Coefficient of Variation 13.4 % (11.5-14.5); RDW Standard Deviation 43.7 fL (36.4-46.3); Red Blood Count 3.87 M/uL (4.20-5.40); White Blood Count 11.94 K/ul (4.8-10.8)
[2023-03-02 18:18] LABS: Albumin Level 2.9 gm/dl (3.4-5.0); Bilirubin Direct 0.1 mg/dl (0-0.2); Bilirubin,Total 0.2 mg/dl (0.2-1.0)
[2023-03-02 18:24] LABS: Total Protein 5.4 gm/dl (6.0-8.3)
[2023-03-02 18:33] LABS: Creatinine Urine Random 109.4 mg/dl; Protein Creatinine Ratio Urine 3.2 (0-0.2); Total Protein Urine Random 350.3 mg/dl (0-11.9)
[2023-03-02] MEDS ORDERED: OXYTOCIN 30 UNITS/500 ML BAG IV PRN (19:51)
[2023-03-02] MEDS ORDERED: LIDOCAINE 1% LOCAL 20 ML VIAL INFIL PRN (19:51)
--- NOTE | 2023-03-02 20:11 | History & Physical Report ---
Date of Service March 02, 2023 Assessment & Plan (1) Pre-eclampsia during in third trimester, antepartum: Plan: Cervidil for cervical ripening IOL History of Present Illness Chief Complaint: elevated BP in office with proteinuria Primary Care Provider: Nitin Cabrera MD 33 F [id number] at 37.4 weeks admitted to L&D for IOL due to elevated BP in office and elevated protein/creatinine ratio. History of pre-eclampsia with last . GBS is negative. Allergies Allergy/AdvReac Type Severity Reaction Status Date / Time mold Allergy Mild . Verified 03/02/23 17:17 pollen extracts Allergy Mild . Verified 03/02/23 17:17 Home Medications Medication Instructions Recorded Confirmed Type cetirizine 10 mg tablet (Zyrtec) 10 mg PO DAILY 07/28/19 03/02/23 History docusate sodium 100 mg capsule 100 mg PO DAILY 07/28/19 03/02/23 History (Colace) vitamins-iron fumarate 27 1 tab PO DAILY 07/28/19 03/02/23 History mg iron-folic acid 0.8 mg tablet ( Vitamin) valacyclovir 500 mg tablet 500 mg PO DAILY 07/28/19 03/02/23 History (Valtrex) Patient History Medical History Anxiety GDM (gestational diabetes mellitus) Genital herpes Migraine SAB (spontaneous ) 2021 (spontaneous vaginal delivery) 2018 Social History Smoking Status: Never smoker Hx Alcohol Use: No Hx Substance Use: No Preferred Language: Slovak Communication Ability: Effective Special Deputy Sheriff Required: No Beliefs That Will Affect Care: None marital status: Current Living Situation: Spouse and Family Other Information That Helps Us Care for You: No Feels Safe at Home: Yes Safety Concerns: Feels Safe At This Time Assistive Devices: None OB History history of pre-eclampsia in past [employer] History history of Herpes on valtrex Review of Systems All systems reviewed & are unremarkable except as noted in HPI & below Physical Exam Constitutional: WD/WN, vitals as above Eyes: PERRL, conjunctivae normal, anicteric sclerae Respiratory: normal respiratory effort, lungs clear to auscultation Cardiovascular: RRR, no murmur, no edema Gastrointestinal (Abdomen): Inspection/Auscultation: abdomen normal to inspection Musculoskeletal: Extremities: extremities normal to inspection Skin: no rashes, warm and dry Neurologic: patellar DTR's 2+ bilat, sensation intact Psychiatric: A+Ox3, euthymic affect Genitourinary: no vaginal lesions, no adnexal mass OB Exam Abdomen: + fundal height and + vertex Manual OB Exam: + cervical dilation (cervix posterior/moderate to firm) fingertip, + cervical effacement 50% and + station high OB Exam Monitor Tracing: + external FHT monitor used, + external uterine monitor used, + category I and + normal FHT variability Results & Data Vital Signs (Past 12 Hours) Vital Signs Temp Pulse Resp BP 03/02/23 19:24 70 03/02/23 19:24 130/71 03/02/23 17:05 18 03/02/23 17:05 36.8 C 18 03/02/23 17:31 85 03/02/23 17:31 151/94 H 03/02/23 16:56 93 H 143/86 H Laboratory Results Laboratory Results - last 48 hr 03/02/23 03/02/23 03/02/23 17:20 17:42 17:42 WBC 11.94 H RBC 3.87 L Hgb 12.0 Hct 35.0 L MCV 90.4 MCH 31.0 MCHC 34.3 RDW Std Deviation 43.7 RDW Coeff of Jaja 13.4 Plt Count 232 MPV 10.7 Immature Gran % (Auto) 0.4 Neut % (Auto) 73.3 Lymph % (Auto) 19.4 [place] % (Auto) 5.9 Eos % (Auto) 0.6 Baso % (Auto) 0.4 Neut # (Auto) 8.74 H Lymph # (Auto) 2.32 [place] # (Auto) 0.71 H Eos # (Auto) 0.07 Baso # (Auto) 0.05 Immature Gran # (Auto) 0.05 Total Bilirubin 0.2 Direct Bilirubin 0.1 AST 16 ALT 11 Alkaline Phosphatase 122 H Total Protein 5.4 L Albumin 2.9 L Ur Random Creatinine 109.4 U Random Total Protein 350.3 H Protein/Creatinin Ratio 3.2 H Code Status & VTE Plan VTE Prophylaxis Plan VTE Prophylaxis will be ordered: No Monitoring External Monitor Cat 1
[2023-03-02] MEDS ORDERED: DINOPROSTONE 10 MG INSERT PV ONE (20:15)
[2023-03-02] MEDS ORDERED: BUTORPHANOL TARTRATE 1 MG/ML VIAL IV PRN (20:34)
--- NOTE | 2023-03-02 20:51 | Labor Progress Brief Note ---
Date of Service March 02, 2023 Physical Exam Genitourinary: OB Exam Monitor Tracing: + external FHT monitor used, + external uterine monitor used, + category I and + normal FHT variability Cervidil 10 mg placed in vagina Results & Data Vital Signs (Past 12 Hours) Vital Signs Temp Pulse Resp BP 03/02/23 19:24 70 03/02/23 19:24 130/71 03/02/23 17:05 18 03/02/23 17:05 36.8 C 18 03/02/23 17:31 85 03/02/23 17:31 151/94 H 03/02/23 16:56 93 H 143/86 H
[2023-03-02 21:13] LABS: Hematocrit (blood only) 34.2 % (37.0-47.0); Hemoglobin 11.7 g/dl (12.0-16.0); Mean Corpuscular Hemoglobin 31.5 pg (25.0-34.0); Mean Corpuscular Hgb Conc 34.2 g/dL (32.0-36.0); Mean Corpuscular Volume 91.9 fL (80.0-100.0); Mean Platelet Volume 10.9 fL (9.4-12.4); Platelet Count 244 K/uL (130-400); RDW Coefficient of Variation 13.3 % (11.5-14.5); RDW Standard Deviation 44.4 fL (36.4-46.3); Red Blood Count 3.72 M/uL (4.20-5.40); White Blood Count 12.47 K/ul (4.8-10.8)
[2023-03-03] MEDS ORDERED: valACYclovir HCL 500 MG TABLET PO ONE (00:06)
[2023-03-03] MEDS ORDERED: CETIRIZINE HCL 10 MG TABLET PO ONE (00:06)
[2023-03-03] MEDS: LACTATED RINGER'S 1,000 ML IV PRN ×3 (00:30→13:09)
[2023-03-03] MEDS: SERTRALINE HCL 100 MG TABLET PO SCH ×2 (00:52→20:49)
[2023-03-03] MEDS ORDERED: OXYTOCIN 30 UNITS/500 ML BAG IV PRN ×2 (09:01→16:15)
--- NOTE | 2023-03-03 09:03 | Labor Progress Brief Note ---
Date of Service March 03, 2023 Assessment & Plan Admission and Anticipated Discharge Date Admission Date: March 02, 2023 Physical Exam Genitourinary: Manual OB Exam: + cervical dilation 2 cm and 3 cm, + cervical effacement 50% and + station high OB Exam Monitor Tracing: + external FHT monitor used, + external uterine monitor used and + category I Cervidil removed. Cervix soft and more anterior. Will start Oxytocin. Results & Data Vital Signs (Past 12 Hours) Vital Signs Temp Pulse Resp BP 03/03/23 07:30 65 141/89 H 03/03/23 07:14 36.8 C 64 20 170/101 H 03/03/23 05:40 68 141/94 H 03/03/23 03:46 36.9 C 76 16 132/87 03/03/23 01:13 68 136/87 03/03/23 00:16 18 03/03/23 00:16 36.9 C 18 03/02/23 22:55 71 03/02/23 22:55 140/84
--- NOTE | 2023-03-03 12:14 | Labor Progress Brief Note ---
Date of Service March 03, 2023 Assessment & Plan Admission and Anticipated Discharge Date Admission Date: March 02, 2023 Physical Exam Genitourinary: Manual OB Exam: + cervical dilation 4 cm, + cervical effacement 60%, + station high and + amniotic fluid clear OB Exam Monitor Tracing: + external FHT monitor used, + external uterine monitor used, + category I and + normal FHT variability AROM with Amni-hook clear fluid Results & Data Vital Signs (Past 12 Hours) Vital Signs Temp Pulse Resp BP 03/03/23 11:19 69 154/89 H 03/03/23 11:00 20 03/03/23 11:00 37.1 C 20 03/03/23 10:18 71 141/92 H 03/03/23 09:18 68 146/92 H 03/03/23 07:30 65 141/89 H 03/03/23 07:14 36.8 C 64 20 170/101 H 03/03/23 05:40 68 141/94 H 03/03/23 03:46 36.9 C 76 16 132/87 03/03/23 01:13 68 136/87 03/03/23 00:16 18 03/03/23 00:16 36.9 C 18
[2023-03-03] MEDS ORDERED: fentaNYL citrate PF 100 MCG/2 ML VIAL ONE (12:33)
[2023-03-03] MEDS ORDERED: SODIUM CHLORIDE 0.9% PF INJ 10 ML VIAL ONE (12:33)
[2023-03-03] MEDS ORDERED: BUPIVACAINE 0.25% PF 30 ML VIAL ONE (12:33)
[2023-03-03] MEDS ORDERED: LIDOCAINE 2%/EPINEPHRINE 1:200,000 20 ML PF ONE (12:33)
[2023-03-03] MEDS ORDERED: ePHEDrine sulfate 50 MG/ML AMP ONE (12:33)
[2023-03-03] MEDS ORDERED: fentaNYL 2MCG/ML ROPIVACAINE 1.25MG/ML 100 ML BAG EPI ONE (12:34)
--- NOTE | 2023-03-03 13:03 | Anesthesiology Consultation ---
Date of Service March 03, 2023 Assessment & Plan Chart Review Chart Review: Acceptable Risk for Surgery and Patient NOT seen in Pre Admission Testing Consults Requested none ASA ASA3 Proposed Anesthesia Anesthesia Type: Labor Epidural and CSE History Height/Weight Height: 5 ft 5 in Weight: 122.47 kg Allergies Allergy/AdvReac Type Severity Reaction Status Date / Time mold Allergy Mild . Verified 03/02/23 17:17 pollen extracts Allergy Mild . Verified 03/02/23 17:17 Medications Home Medications Medication Instructions Recorded Confirmed Last Taken cetirizine 10 mg tablet (Zyrtec) 10 mg PO DAILY 07/28/19 03/02/23 03/01/23 22:00 docusate sodium 100 mg capsule 100 mg PO DAILY 07/28/19 03/02/23 03/01/23 22:00 (Colace) vitamins-iron fumarate 27 1 tab PO DAILY 07/28/19 03/02/23 03/01/23 22:00 mg iron-folic acid 0.8 mg tablet ( Vitamin) valacyclovir 500 mg tablet 500 mg PO DAILY 07/28/19 03/02/23 03/01/23 22:00 (Valtrex) sertraline 100 mg tablet (Zoloft) 100 mg PO DAILY 03/03/23 03/03/23 03/03/23 00:00 Active Medications Generic Name Dose Route Start Last Admin Trade Name Freq PRN Reason Stop Dose Admin Lactated Ringer's 1,000 mls @ 125 mls/hr 03/02/23 19:51 03/03/23 09:19 Lr IV 03/04/23 19:50 125 mls/hr .Q8H PRN Administration L&D Protocol Protocol Oxytocin 30 units in 500 mls @ 5 mls/hr 03/03/23 09:01 03/03/23 11:30 Pitocin IV 03/05/23 09:00 0.3 units/hr .Q24H PRN 5 mls/hr Labor Induction/Augmentation Titration Protocol 0.3 UNITS/HR Sertraline HCl 100 mg 03/03/23 21:00 03/03/23 00:52 Sertraline Hcl 100 Mg Tablet PO 04/02/23 20:59 100 mg HS HUMBERTO Administration Past Medical History Medical History Anxiety GDM (gestational diabetes mellitus) Genital herpes Migraine SAB (spontaneous ) 2021 (spontaneous vaginal delivery) 2018 Exercise / Class Metabolic Activity II 4-5 Yardwork/Stairs/Walk up hill Past Anesthesia History No Hx of Anesthesia Complications and No Family Hx of Anesthesia Complications History of PONV No Hx of PONV and No Hx of Motion Sickness Social History Smoking Status: Never smoker Hx Alcohol Use: No Hx Substance Use: No substance use type: does not use Physical Exam Vital Signs Last Vital Signs Temp 37.1 C 03/03/23 11:00 Pulse 79 03/03/23 12:57 Resp 20 03/03/23 11:00 BP 167/95 H 03/03/23 12:19 Pulse Ox 99 03/03/23 12:57 Testing Laboratory Results 03/02/23 20:26
[2023-03-03] MEDS ORDERED: ROPIVACAINE 0.5% PF 5 MG/ML 20 ML VIAL EPI PRN (13:44)
[2023-03-03] MEDS ORDERED: SODIUM CHLORIDE 0.9% PF INJ 10 ML VIAL EPI STA (13:44)
[2023-03-03] MEDS ORDERED: diphenhydrAMINE 50 MG/ML VIAL IV PRN (13:44)
[2023-03-03] MEDS ORDERED: LIDOCAINE 2% MPF LOCAL 5 ML VIAL EPI PRN (13:44)
[2023-03-03] MEDS ORDERED: NALOXONE HCL 1 MG in SODIUM CHLORIDE 0.9% 1000ML 1,000 ML IV PRN (13:44)
[2023-03-03] MEDS ORDERED: NALBUPHINE HCL INJ 10 MG/ML AMP IV PRN (13:44)
[2023-03-03] MEDS ORDERED: BUPIVACAINE 0.25% PF 30 ML VIAL EPI STA (13:44)
[2023-03-03] MEDS ORDERED: NALOXONE HCL 0.4 MG/1 ML VIAL/CARP IV PRN (13:44)
[2023-03-03] MEDS ORDERED: BUPIVACAINE 0.25% PF 30 ML VIAL EPI PRN (13:44)
[2023-03-03] MEDS ORDERED: ePHEDrine sulfate 50 MG/ML AMP IV PRN (13:44)
[2023-03-03] MEDS ORDERED: ONDANSETRON INJ 2 MG/ML 2 ML VIAL IV PRN (13:44)
[2023-03-03] MEDS ORDERED: fentaNYL citrate PF 100 MCG/2 ML VIAL EPI PRN (13:44)
[2023-03-03] MEDS ORDERED: fentaNYL citrate PF 100 MCG/2 ML VIAL EPI STA (13:44)
[2023-03-03] MEDS ORDERED: fentaNYL 2MCG/ML ROPIVACAINE 1.25MG/ML 100 ML BAG EPI PRN (13:44)
[2023-03-03] MEDS ORDERED: LIDOCAINE 2%/EPINEPHRINE 1:200,000 20 ML PF EPI STA (13:44)
[2023-03-03] MEDS ORDERED: SODIUM CHLORIDE 0.9% PF INJ 10 ML VIAL EPI PRN (13:44)
[2023-03-03] MEDS ORDERED: PROMETHAZINE HCL 25 MG in SODIUM CHLORIDE 0.9% 50 ML IV PRN (13:44)
--- NOTE | 2023-03-03 15:46 | Labor Progress Brief Note ---
Date of Service March 03, 2023 Assessment & Plan Admission and Anticipated Discharge Date Admission Date: March 02, 2023 Physical Exam Genitourinary: Manual OB Exam: + cervical dilation 10 cm, + cervical effacement 100% and + station + 2 OB Exam Monitor Tracing: + external FHT monitor used, + external uterine monitor used, + category I and + normal FHT variability Results & Data Vital Signs (Past 12 Hours) Vital Signs Temp Pulse Resp BP Pulse Ox 03/03/23 15:42 103 H 96 03/03/23 15:37 74 98 03/03/23 15:32 79 98 03/03/23 15:29 75 150/91 H 03/03/23 15:27 80 99 03/03/23 15:22 78 98 03/03/23 15:17 72 98 03/03/23 15:15 72 152/91 H 03/03/23 15:12 74 98 03/03/23 15:07 77 98 03/03/23 15:02 78 98 03/03/23 15:00 73 145/93 H 03/03/23 14:57 77 99 03/03/23 14:52 80 99 03/03/23 14:47 90 98 03/03/23 14:46 66 148/90 H 03/03/23 14:42 72 98 03/03/23 14:37 72 99 03/03/23 14:32 74 97 03/03/23 14:29 69 136/90 03/03/23 14:27 76 98 03/03/23 14:22 72 99 03/03/23 14:17 69 98 03/03/23 14:12 70 03/03/23 14:12 69 138/85 99 03/03/23 14:07 66 99 03/03/23 14:05 72 142/86 H 03/03/23 14:02 72 99 03/03/23 14:01 67 141/85 H 03/03/23 13:57 73 99 03/03/23 13:56 73 143/90 H 03/03/23 13:52 77 100 03/03/23 13:50 77 134/79 03/03/23 13:48 80 138/77 03/03/23 13:47 82 100 03/03/23 13:46 79 143/81 H 03/03/23 13:44 78 139/81 03/03/23 13:42 81 03/03/23 13:42 84 137/81 98 03/03/23 13:40 76 140/82 03/03/23 13:38 79 142/78 H 03/03/23 13:37 79 98 03/03/23 13:36 71 149/75 H 03/03/23 13:34 85 152/79 H 03/03/23 13:32 79 99 03/03/23 13:27 88 99 03/03/23 13:22 84 99 03/03/23 13:18 76 176/99 H 03/03/23 13:17 93 H 99 03/03/23 13:12 102 H 98 03/03/23 13:07 76 99 03/03/23 13:02 97 H 98 03/03/23 12:57 79 99 03/03/23 12:19 70 167/95 H 03/03/23 11:19 69 154/89 H 03/03/23 11:00 20 03/03/23 11:00 37.1 C 20 03/03/23 10:18 71 141/92 H 03/03/23 09:18 68 146/92 H 03/03/23 07:30 65 141/89 H 03/03/23 07:14 36.8 C 64 20 170/101 H 03/03/23 05:40 68 141/94 H 03/03/23 03:46 36.9 C 76 16 132/87
[2023-03-03] MEDS ORDERED: DIPHTHERIA/TETANUS/PERTUSSIS Vaccine (Tdap, Age 7+yrs) 0.5mL SYR/VL IM ONE (16:15)
[2023-03-03] MEDS ORDERED: ACETAMINOPHEN 325 MG TAB PO PRN (16:15)
[2023-03-03] MEDS ORDERED: HYDROCORTISONE ACETATE 25 MG SUPP PR PRN (16:15)
[2023-03-03] MEDS ORDERED: BENZOCAINE 20% AER SPR 82.5 GM CAN EXT PRN (16:15)
[2023-03-03] MEDS ORDERED: bisacodyL 10 MG SUPP PR PRN (16:15)
--- NOTE | 2023-03-03 16:18 | Delivery Summary ---
Vaginal Delivery Summary Date of Service March 03, 2023 Vaginal Delivery Summary Delivery Note live female NOA over intact perineum with delayed cord clamping and Apgars 8/9 weight pending. Cord blood obtained followed by spontaneous delivery of intact placenta. No tears. EBL 100 ml. Final sponge and instrument count. Mom and baby stable.
--- NOTE | 2023-03-03 16:58 | Anesthesia Procedure Note ---
Date of Service March 03, 2023 Anesthesia Post Epidural Note Vital Signs Vital Signs: Temp Pulse Resp BP Pulse Ox 37.1 C 72 20 119/57 L 98 03/03/23 11:00 03/03/23 16:30 03/03/23 11:00 03/03/23 16:30 03/03/23 15:52 Notes Mental Status: alert / awake / arousable Nausea / Vomiting: adequately controlled Pain: adequately controlled Airway Patency, RR, SpO2: stable & adequate BP & HR: stable & adequate Hydration State: stable & adequate Neuraxial Anesthesia: was administered and sensory block is resolving Anesthetic Complications: no major complications apparent Epidural: Removed without complications and With tip intact
[2023-03-03] MEDS: IBUPROFEN 600 MG TAB PO PRN (17:19)
[2023-03-03] MEDS: DOCUSATE SODIUM 100 MG CAP PO SCH (20:49)
[2023-03-04] MEDS: PRENATAL VITAMIN 1 TAB PO SCH (07:42)
[2023-03-04] MEDS: IBUPROFEN 600 MG TAB PO PRN ×3 (07:43→19:51)
[2023-03-04] MEDS: DOCUSATE SODIUM 100 MG CAP PO SCH ×2 (07:43→19:51)
[2023-03-04] MEDS: FERROUS SULFATE 325 MG TAB PO SCH (07:44)
[2023-03-04] MEDS ORDERED: Nursing to Pharmacy Communication SCH (07:45)
[2023-03-04 08:07] LABS: Hematocrit (blood only) 35.5 % (37.0-47.0); Mean Corpuscular Hemoglobin 31.5 pg (25.0-34.0); Mean Corpuscular Hgb Conc 33.8 g/dL (32.0-36.0); Mean Corpuscular Volume 93.2 fL (80.0-100.0); Mean Platelet Volume 10.6 fL (9.4-12.4); Platelet Count 213 K/uL (130-400); RDW Coefficient of Variation 13.6 % (11.5-14.5); Red Blood Count 3.81 M/uL (4.20-5.40); White Blood Count 12.42 K/ul (4.8-10.8)
[2023-03-04] MEDS ORDERED: NON-FORMULARY MEDICATION (Prenatal Vit-Iron Fum-Folic Ac [Prenatal Vitamin] 27 mg iron- 0. PO SCH (09:00)
[2023-03-04] MEDS ORDERED: CETIRIZINE HCL 10 MG TABLET PO SCH ×2 (09:00→21:00)
[2023-03-04] MEDS ORDERED: DOCUSATE SODIUM 100 MG CAP PO SCH (09:00)
[2023-03-04] MEDS ORDERED: SERTRALINE HCL 100 MG TABLET PO SCH (09:00)
[2023-03-04 10:48] LABS: Albumin Globulin Ratio 1.1 (0.9-2); BUN Creatinine Ratio 17.5 (10-20); Bilirubin,Total 0.3 mg/dl (0.2-1.0); Calcium 8.6 mg/dl (8.6-10.3); Creatinine Clr Calc Pharmacy 163.7 ml/min; Est GFR (African American) 134.7 ml/min; Est GFR (Non-African American) 116.2 ml/min; Globulin 2.7 gm/dl (2.5-4.0); Potassium 4.2 mmol/L (3.5-5.1); Total Protein 5.7 gm/dl (6.0-8.3)
--- NOTE | 2023-03-04 11:27 | Obstetrical Progress Note ---
Date of Service March 04, 2023 Assessment & Plan (1) Pre-eclampsia during in third trimester, antepartum: Preeclampsia delivery day 31 pt doing well No headache, SOB or RUQ pain BP in 140/90 LFT's nml will start Labetelol Results & Data Vital Signs (Past 12 Hours) Vital Signs Temp Pulse Resp BP Pulse Ox O2 Del Method 03/04/23 08:00 36.6 C 75 18 140/98 97 Room Air 03/04/23 03:10 36.7 C 71 18 140/93 95 Room Air
[2023-03-04] MEDS: SERTRALINE HCL 100 MG TABLET PO SCH (19:52)
[2023-03-04] MEDS ORDERED: bisacodyL 5 MG TABEC PO SCH (20:00)
[2023-03-05] MEDS: IBUPROFEN 600 MG TAB PO PRN ×2 (05:48→07:39)
[2023-03-05 06:17] LABS: Hematocrit (blood only) 35.6 % (37.0-47.0); Hemoglobin 11.9 g/dl (12.0-16.0)
--- NOTE | 2023-03-05 07:14 | Obstetrical Progress Note ---
Date of Service March 05, 2023 Assessment & Plan (1) Pre-eclampsia during in third trimester, antepartum: Blood pressure this morning 136/91, not currently on any medication We will start nifedipine 30 mg extended release Return to clinic for blood pressure check in 2 days We will discharge with instructions Subjective Ambulation: ambulating normally Voiding: no voiding problems Passing Gas:: Yes Diet Tolerance:: regular diet Lochia:: Small Feeding Type:: breast feeding Current Pain Level(1-10): 0 Has cramping with breast-feeding, no other complaints at this time Has had a small bowel movement Would like to go home today Physical Exam Constitutional WD/WN, vitals as above Respiratory normal respiratory effort, lungs clear to auscultation Cardiovascular RRR, no murmur, no edema Gastrointestinal (Abdomen) normal bowel sounds, soft, nontender, no hepatosplenomegaly Fundus below umbilicus, obese Results & Data Vital Signs (Past 12 Hours) Vital Signs Temp Pulse Resp BP BP Pulse Ox O2 Del Method 03/05/23 04:15 36.6 C 72 18 136/91 97 Room Air 03/05/23 00:00 36.5 C 71 18 143/90 H 97 Room Air 03/04/23 19:53 137/91 03/04/23 19:24 36.6 C 66 18 97 Room Air Laboratory Results Laboratory Results WBC 12.42 K/ul (4.8-10.8) H 03/04/23 07:44 RBC 3.81 M/uL (4.20-5.40) L 03/04/23 07:44 Hgb 11.9 g/dl (12.0-16.0) L 03/05/23 05:46 Hct 35.6 % (37.0-47.0) L 03/05/23 05:46 MCV 93.2 fL (80.0-100.0) 03/04/23 07:44 MCH 31.5 pg (25.0-34.0) 03/04/23 07:44 MCHC 33.8 g/dL (32.0-36.0) 03/04/23 07:44 RDW Std Deviation 46.0 fL (36.4-46.3) 03/04/23 07:44 RDW Coeff of Jaja 13.6 % (11.5-14.5) 03/04/23 07:44 Plt Count 213 K/uL (130-400) 03/04/23 07:44 MPV 10.6 fL (9.4-12.4) 03/04/23 07:44 Immature Gran % (Auto) 0.4 % 03/02/23 17:42 Neut % (Auto) 73.3 % 03/02/23 17:42 Lymph % (Auto) 19.4 % 03/02/23 17:42 [place] % (Auto) 5.9 % 03/02/23 17:42 Eos % (Auto) 0.6 % 03/02/23 17:42 Baso % (Auto) 0.4 % 03/02/23 17:42 Neut # (Auto) 8.74 K/uL (1.40-6.50) H 03/02/23 17:42 Lymph # (Auto) 2.32 K/uL (1.2-3.4) 03/02/23 17:42 [place] # (Auto) 0.71 K/uL (0.11-0.59) H 03/02/23 17:42 Eos # (Auto) 0.07 K/uL (0-0.50) 03/02/23 17:42 Baso # (Auto) 0.05 K/uL (0-0.2) 03/02/23 17:42 Immature Gran # (Auto) 0.05 K/uL (0.01-0.20) 03/02/23 17:42 Sodium 138 mmol/L (136-145) 03/04/23 10:12 Potassium 4.2 mmol/L (3.5-5.1) 03/04/23 10:12 Chloride 107 mmol/L (98-107) 03/04/23 10:12 Carbon Dioxide 24 mmol/L (21-32) 03/04/23 10:12 Anion Gap 7 (3-11) 03/04/23 10:12 BUN 11 mg/dl (6-23) 03/04/23 10:12 Creatinine 0.63 mg/dl (0.6-1.2) 03/04/23 10:12 Est Cr Clr Drug Dosing 163.7 ml/min 03/04/23 10:12 Est GFR ( Amer) 134.7 ml/min 03/04/23 10:12 Est GFR (Non-Af Amer) 116.2 ml/min 03/04/23 10:12 BUN/Creatinine Ratio 17.5 (10-20) 03/04/23 10:12 Glucose 102 mg/dl (70-99(Fasting)) H 03/04/23 10:12 POC Glucose 107 mg/dl (70-99) H 03/02/23 20:12 Calcium 8.6 mg/dl (8.6-10.3) 03/04/23 10:12 Total Bilirubin 0.3 mg/dl (0.2-1.0) 03/04/23 10:12 Direct Bilirubin 0.1 mg/dl (0-0.2) 03/02/23 17:42 AST 20 U/L (13-39) 03/04/23 10:12 ALT 11 U/L (7-52) 03/04/23 10:12 Alkaline Phosphatase 120 U/L (34-104) H 03/04/23 10:12 Total Protein 5.7 gm/dl (6.0-8.3) L 03/04/23 10:12 Albumin 3.0 gm/dl (3.4-5.0) L 03/04/23 10:12 Globulin 2.7 gm/dl (2.5-4.0) 03/04/23 10:12 Albumin/Globulin Ratio 1.1 (0.9-2) 03/04/23 10:12 Ur Random Creatinine 109.4 mg/dl 03/02/23 17:20 U Random Total Protein 350.3 mg/dl (0-11.9) H 03/02/23 17:20 Protein/Creatinin Ratio 3.2 (0-0.2) H 03/02/23 17:20 SARS-CoV-2, RNA, NAAT NEGATIVE (NEGATIVE) 03/02/23 20:45
[2023-03-05] MEDS: FERROUS SULFATE 325 MG TAB PO SCH (07:39)
[2023-03-05] MEDS: DOCUSATE SODIUM 100 MG CAP PO SCH (07:39)
[2023-03-05] MEDS: PRENATAL VITAMIN 1 TAB PO SCH (07:39)
[2023-03-05] MEDS ORDERED: NIFEdipine EXTENDED REL 30 MG TABCR PO SCH (09:00)
== END 2023-03-05 11:30 | disposition home or self-care (01) | DRG 807 ==
LOC: OPB 16:44 → 4S1 16:47 → 4E2 03-03 19:56

== ENCOUNTER 2024-10-18 06:42 | Inpatient (IN) ==
--- OUTSIDE RECORDS SUMMARY | 2024-10-18 06:51 | External Medical Summary ---
Author Name Unknown Address Unknown Organization [id number] [address] [place] [address] Laboratory Report Ordering Provider Test Date Status FABRICE SIDHU 10/08/2024 13:56:00 Final Observation Date Value Abnormality Reference (Units ) Status Color of Urine by Auto 10/08/2024 13:56:00 Yellow Light Yellow, Yellow Final Clarity, Urine 10/08/2024 13:56:00 Clear Clear Final Glucose [Mass/volume] in Urine by Automated test strip 10/08/2024 13:56:00 Negative Negative (mg/dL) Final Bilirubin.total [Presence] in Urine by Automated test strip 10/08/2024 13:56:00 Negative Negative Final Ketones [Mass/volume] in Urine by Automated test strip 10/08/2024 13:56:00 Negative Negative (mg/dL) Final Specific gravity, Urine 10/08/2024 13:56:00 1.025 1.003-1.030 Final Hemoglobin [Presence] in Urine by Automated test strip 10/08/2024 13:56:00 Large Abnormal Negative Final pH, Urine 10/08/2024 13:56:00 6.0 5.0, 5.5, 6.0, 6.5, 7.0, 7.5 (units) Final Protein [Mass/volume] in Urine by Automated test strip 10/08/2024 13:56:00 100 Abnormal Negative (mg/dL) Final Urobilinogen, Urine 10/08/2024 13:56:00 0.2 0.2, 1.0 (mg/dL) Final Nitrite [Presence] in Urine by Automated test strip 10/08/2024 13:56:00 Negative Negative Final Leukocyte esterase [Presence] in Urine by Automated test strip 10/08/2024 13:56:00 Trace Abnormal Negative Final Performing Location [facility] [address] [place] [id number]
--- OUTSIDE RECORDS SUMMARY | 2024-10-18 06:51 | External Medical Summary ---
Author Name Unknown Address Unknown Organization [id number] [address] [place] [address] Laboratory Report Ordering Provider Test Date Status FABRICE SIDHU 10/15/2024 13:59:00 Final Observation Date Value Abnormality Reference (Units ) Status Color of Urine by Auto 10/15/2024 13:59:00 Yellow Light Yellow, Yellow Final Clarity, Urine 10/15/2024 13:59:00 Clear Clear Final Glucose [Mass/volume] in Urine by Automated test strip 10/15/2024 13:59:00 Negative Negative (mg/dL) Final Bilirubin.total [Presence] in Urine by Automated test strip 10/15/2024 13:59:00 Negative Negative Final Ketones [Mass/volume] in Urine by Automated test strip 10/15/2024 13:59:00 Negative Negative (mg/dL) Final Specific gravity, Urine 10/15/2024 13:59:00 1.010 1.003-1.030 Final Hemoglobin [Presence] in Urine by Automated test strip 10/15/2024 13:59:00 Small Abnormal Negative Final pH, Urine 10/15/2024 13:59:00 7.0 5.0, 5.5, 6.0, 6.5, 7.0, 7.5 (units) Final Protein [Mass/volume] in Urine by Automated test strip 10/15/2024 13:59:00 Negative Negative (mg/dL) Final Urobilinogen, Urine 10/15/2024 13:59:00 0.2 0.2, 1.0 (mg/dL) Final Nitrite [Presence] in Urine by Automated test strip 10/15/2024 13:59:00 Negative Negative Final Leukocyte esterase [Presence] in Urine by Automated test strip 10/15/2024 13:59:00 Negative Negative Final Performing Location [facility] [address] [place] [address]
--- OUTSIDE RECORDS SUMMARY | 2024-10-18 06:51 | External Medical Summary | Summary of Care ---
Author Name Unknown Organization [facility] Address [address] [place] [address] Phone [phone] Care Team Providers Care Batt Machine Operator Name Role Phone Nitin Cabrera MD Primary Care Provider [phone] Reason for Visit * Reason Comments Blood Pressure Check Encounter Details Date Type Department Care Team (Late st Contact Info) Description 10/09/2024 2:00 PM EST Nurse Only Gynecology/Obstetrics [facility] [address] [place] [address] Gw, Nurse Obgyn Injection [address] [facility] [place] [address] Blood Pressure Check Allergies Active Allergy Reactions Criticality Noted Date Comments Molds & Smuts Other (Please comment) High 03/10/2014 Pollen Other (Please comment) High 03/10/2014 documented as of this encounter (statuses as of 10/09/2024) Medications ZADITOR 0.025 % OP SOLNIndications: Conjunctivitis, allergic one drop each eye every 8-12 hrs for eye itching 1 Bottle 3 3 Active Additional Information Patient not taking.Reported on 10/08/2024 CETIRIZINE HCL 10 MG PO CAPS daily Active Blood Pressure Monitoring (BLOOD PRESSURE CUFF) [facility] Self blood pressure cuff. Use as directed. 1 Each 0 Active Additional Information Patient not taking.Reported on 10/08/2024 27-0.8 MG Oral Tablet Take by mouth. Active Docusate Sodium 100 MG Oral Capsule (Colace) Take 1 Capsule by mouth in the morning and 1 Capsule before bedtime. Active Polyethylene Glycol 3350 17 GM/SCOOP Oral Powder Take 17 g by mouth in the morning. Active Albuterol Sulfate HFA 108 (90 Base) MCG/ACT Inhalation Aerosol Solution Inhale 2 Puffs by mouth every 6 hours as needed (cough sob). 18 g 1 3 Active Additional Information Patient not taking.Reported on 10/08/2024 Breast PumpIndications: Breast feeding status of mother ELOISE 03/19/23, Z39.1, double electric pump 1 Each 3 Active Pidefarma Flex System w/Device KitIndications:D iet controlled gestational diabetes mellitus (GDM), antepartum Use to test blood sugars 4 times daily (fasting, 1 hour after breakfast, lunch, and dinner) 1 Kit 4 Active Ground Up Biosolutions Lancets 33GIndications:D iet controlled gestational diabetes mellitus (GDM) in second trimester Test blood sugar 4 times a day 100 Each 3 4 Active Aspirin 81 MG Oral Tablet Chewable (Aspirin 81) Take 1 Tablet by mouth in the morning. Active NIFEdipine ER Osmotic Release 30 MG Oral Tablet Extended Release 24 Hour (Procardia XL) TAKE 1 TABLET BY MOUTH EVERY DAY IN THE EVENING 30 Tablet 11 4 Active metFORMIN HCl 500 MG Oral Tablet (Glucophage)Rosario cations:Gestatio nal diabetes mellitus (GDM) in second trimester controlled on oral hypoglycemic drug Take 1000 mg (4 tablets) with bedtime snack. 90 Tablet 4 4 Active Additional Information Patient not taking.Reported on 10/08/2024 Pidefarma In Vitro Strip (Glucose Blood) Use to test blood sugar 4 times a day (fasting, one hour after breakfast, lunch, and dinner) 150 Strip 3 4 Active Sharps ContainerIndicat ions:Insulin controlled gestational diabetes mellitus (GDM) in third trimester Use to dispose of lancets and pen needles. 1 Each 2 4 Active BD Pen Needle Mini U/F 31G X 5 MM (Insulin Pen Needle)Indicatio ns:Insulin controlled gestational diabetes mellitus (GDM) in third trimester Use with insulin pen to inject insulin 150 Each 5 4 Active Sertraline HCl 100 MG Oral Tablet (Zoloft) Take 1 Tablet by mouth in the morning. 90 Tablet 3 5 Active valACYclovir HCl 500 MG Oral Tablet (Valtrex) Take 1 Tablet by mouth 2 times a day. Until gone. 60 Tablet 1 5 Active Toujeo SoloStar 300 UNIT/ML Subcutaneous Solution Pen-injector (Insulin Glargine (1 Unit Dial))Indication s:Insulin controlled gestational diabetes mellitus (GDM) in third trimester Inject under the skin 15 units with breakfast and 50 units at bedtime 7.5 mL 5 5 Active Amoxicillin 875 MG Oral TabletIndication s:Acute non-recurrent frontal sinusitis Take 1 Tablet by mouth in the morning and 1 Tablet before bedtime. Do all this for 5 days. 10 Tablet 5 10/12/19 25 Active documented as of this encounter (statuses as of 10/09/2024) Active Problems Problem Noted Date Diagnosed Date Carrier of group B Streptococcus 10/06/2024 History of gestational diabe param in prior , currently 03/11/2024 Overview (03/19/2024): History of GDMA1. Patient aware to complete early 1 hour GCT at her earliest convenience. Assessment & Plan (03/19/2024 4:42 PM EDT): Reviewed with patient that women who have a history of GDM in a previous may have up to a 75% risk for GDM in subsequent pregnancies. Recommend obtaining early one hour Glucola screen and repeat again at 26-28 weeks if early screen is normal. Chronic hypertension in 03/11/2024 Overview (03/19/2024): Chronic hypertension managed with nifedipine 30 mg daily. Recommend bASA 81 mg daily. Patient monitors blood sugars at work ([employer]). BP stable thus far in current . BP Readings from Last 5 Encounters: 03/11/24 118/76 10/14/23 128/78 05/03/23 132/90 04/11/23 126/84 03/29/23 128/90 Baseline Preeclampsia Labs Lab Results Component Value Date/Time PLT 296 03/11/2024 12:55 PM CREATININE - [facility] 0.5 03/11/2024 12:55 PM AST - [facility] 16 03/11/2024 12:55 PM ALT - [facility] 15 03/11/2024 12:55 PM PROTEIN/ CREATININE RATIO, URINE - [facility] 112 03/11/2024 12:55 PM Assessment & Plan (10/01/2024 4:15 PM EST): BP Readings from Last 5 Encounters: 10/01/24 124/84 09/28/24 118/72 09/24/24 122/82 09/21/24 106/78 09/17/24 124/74 Please titrate medication to maintain goal BP < 140/90. Assessment & Plan (08/06/2024 3:13 PM EST): BP Readings from Last 5 Encounters: 08/05/24 126/86 07/08/24 118/78 06/09/24 108/68 06/09/24 127/67 05/29/24 118/72 Please titrate medication to maintain goal BP < 140/90. Assessment & Plan (07/08/2024 2:46 PM EST): BP Readings from Last 5 Encounters: 06/09/24 108/68 06/09/24 127/67 05/29/24 118/72 05/13/24 120/74 04/10/24 120/76 Please titrate medication to maintain goal BP < 140/90. Assessment & Plan (03/19/2024 4:44 PM EDT): Considerations: Women with chronic hypertension during are at significantly increased risk for morbidity. Signs and symptoms of superimposed pre-eclampsia were reviewed; instructed patient to contact primary OB care provider if these symptoms occur. Recommendations: Obtain baseline lab work CECY (if not already done) with assessment of proteinuria (24-hour urine protein or fdmnbnz-fu-ipqacjjqhf ratio) and CBC, serum AST/ALT/creatinine. If patient has had hypertension for 10 years or more, obtain an EKG and eye exam (if not performed within the past year). Recommend initiation of aspirin (81mg) daily, from 13 weeks until delivery, to decrease the risk of superimposed preeclampsia. Daily home blood pressure monitoring, especially in the second half of the . It may be useful to have the patient validate their home device with their primary OB care provider's office. Patients with BP less than 140/90 maintained with antihypertensives should continue medication during . Initiate or adjust antihypertensive medication if BP is 140/90 or greater on at least two occasions at least 4 hours apart and refer patient back to Maternal- Medicine. Titrate medication to maintain blood pressure in a goal range 120-140/70-90. Labetalol and Nifedipine are considered safe for use in and these agents are considered as first-line therapy when indicated. Maternal Medicine ultrasound for anatomy at 19-20 weeks. surveillance as follows: If being treated with anti-hypertensives: Maternal- Medicine ultrasound for growth every 4 weeks starting at 24-26 weeks surveillance weekly starting at 32 weeks gestation Delivery should be individualized based on blood pressure control and assessment of patient risk and is indicated as follows: For those with stable blood pressures not on anti-hypertensive medications: Between 38 0/7 and 39 6/7 weeks For those on anti-hypertensive medications: Between 37 0/7 and 39 6/7 weeks Obesity, Class III, BMI 40-49.9 (morbid obesity) 03/11/2024 Overview (03/11/2024): Early glucola Baseline preeclamptic labs Growth u/s every 4wk after 20wks Weekly NST after 34 weeks Consider anesthesia consult Delivery by EDC HTN, goal below 140/90 05/03/2023 Insulin controlled gestation al diabetes mellitus (GDM) in third trimester 01/04/2023 Overview (10/06/2024): Diagnosed at 13 weeks Nutrition consult ordered Needs A1c -- ordered Lab Results Component Value Date/Time 50-G GESTATIONAL GLUCOSE, 1 HOUR - [facility] 140 (H) 04/10/2024 04:24 PM 100-G GESTATIONAL GLUCOSE, 1 HOUR - [facility] 171 04/22/2024 10:34 AM 100-G GESTATIONAL GLUCOSE, 2 HOUR - [facility] 159 (H) 04/22/2024 11:33 AM 100-G GESTATIONAL GLUCOSE, 3 HOUR - [facility] 136 04/22/2024 12:35 PM 100-G GESTATIONAL GLUCOSE, FASTING - [facility] 97 (H) 04/22/2024 09:31 AM 05/07/24: MFM ADAPT consult complete. Referred to [facility]. Instructions provided to report blood sugars each week for MFM review. Past history of diet controlled gestational diabetes. Reviewed diet & exercise recommendations. Will start having a bedtime snack, discussed fasting no longer than 8-10 hours overnight. Continues to work on diet to make better food choices. 05/13/2024-Enrolled in [facility] 05/12/2024. 2 of 2 elevated fasting blood sugars. Advised to watch diet, eat bedtime snack, and avoid fasting longer than 8 to 10 hours. Will review again next week, and if persists, will schedule for follow up ADAPT with maternal medicine nurse practitioner. 05/20/24: RPM elevated fasting; message sent to PARs to scheduled FU ADAPT for further gestational diabetes management 05/27/20248424-ZCI-ehjtxowe fasting blood sugars persist. [facility] PARs attempting to contact patient to schedule follow up ADAPT with no success. Left message on patient's voicemail and sent her a message via [place] [facility] attempting to schedule patient. 05/28/24: [facility] visit completed. Elevated FBS. Begin Lantus (Glargine) 5 units at bedtime. 05/29/24: Clarified with pharmacy: pt will begin 10 unit Lantus at bedtime. 06/01/24: A1C = 5.6 pt notified 06/01/24: FBS still elevated. Unable to start insulin, as insurance doesn't cover Lantus or Glargine. Msg to pt requesting that she call insurance to see what insulins are covered. 06/09/24: RPM reviewed; mildly elevated FBS; patient still unable to get insulin covered; ordered Metformin 500mg PO with bedtime snack (reviewed with Dr. Lemon) 06/17/20243443-PCF-ezeonsvz fasting blood sugars. Multiple missed readings. Sent message to update. Patient sent additional reading via message and fasting blood sugars elevated. Maternal medicine nurse practitioners to review. 06/17/24: RPM reviewed; increased to Metformin 1000 mg at bedtime 06/23/20247914-INZ-lysvmjnl fasting blood sugars. Maternal medicine nurse practitioners to review 06/23/24: RPM reviewed; increased to Metformin 1500 mg at bedtime 07/01/20246263-AVB-znnfhivz fasting blood sugars. Maternal medicine nurse practitioners to review 07/01/24: RPM reviewed; 5/7 elevated FBS. Increase Metformin to 2000 mg at bedtime. 07/02/24: Chat msg from patient: she declines increasing the Metformin and is still taking 1000 mg at bedtime. Does not think her FBS is bad,as it is running 95 and slightly above. States she is working with her diet and bedtime snacks to try to adjust FBS. Advised that 95 is considered elevated. If FBS continues to be 95+, will need to increase Metformin. 07/07/20244705-NKY-hmsxhxhe fasting blood sugars. Multiple missed post prandial lunch and dinner values. Maternal medicine nurse practitioners to review. 07/07/24: RPM reviewed; reports as of 07/06/24 taking Metformin 1500 mg at bedtime 07/14/2024-RPM-3 of 7 elevated fasting blood sugars. Maternal medicine nurse practitioners to review 07/14/24: RPM reviewed; <50% FBS elevated; continue Metformin 1500 mg at bedtime 07/21/24: RPM reviewed; >50% FBS elevated; increase to Metformin 2000mg PO daily 07/29/20244148-JUS-cofqvlpfk via blake and messaging. 3 of 7 elevated fasting blood sugars. Multiple missed post prandial values. Sent message to be consistent with testing four times daily and reporting 08/04/20242268-EFP-ygihytdt fasting blood sugars. Minimal post prandial values but most of what is reported is within normal limits. Maternal medicine nurse practitioners to review 08/04/24: RPM reviewed; elevated fasting blood sugars. Currently maxed on Metformin. Will recommend follow up ADAPT to discuss further management. 08/10/24: [facility] visit today. Elevated FBS and some elevated postprandial values. Pt reports elevated postprandial values due to recent poor diet choices. Agreeable to start insulin and will discontinue Metformin. Will purchase Lantus out of pocket because insurance will not cover. Discontinue Metformin; Begin Lantus 10 units qhs 08/13/24: RPM message received; patient having trouble getting Lantus insulin from pharmacy; will resend Rx for Semglee (10 units at bedtime) - appears to be preferred insulin per insurance coverage 08/17/24: [facility] message received; patient states Semglee still expensive with insurance and desires to purchase Lantus [id number] with Good Rx coupon - Rx Lantus ordered 08/20/20249506-IJO-fvfgjopq fasting blood sugars. Maternal medicine nurse practitioners to review 08/20/24: RPM reviewed; Pt send msg stating she picked up Toujeo. I sent her a RPM message asking her what insulin she has - Semglee or Toujeo? 08/21/24: Pt reports she had Toujeo. Advised to begin Toujeo 10 units at bedtime. FBS continues to be elevated. 08/25/20249884-HZW-xhlccgaa fasting blood sugars and some post prandial. Maternal medicine nurse practitioners to review 08/25/24: RPM reviewed; noted as above. Increase Toujeo to 15 units at bedtime 09/01/20247849-CDZ-fqoyzydp fasting blood sugars. Some missed post prandial values but those values overall stable. Sent message to maternal medicine nurse practitioners to review fasting blood sugars. 09/01/24: RPM reviewed; increased to Toujeo 25 units at bedtime 09/09/20249829-YCI-iuvssyxh fasting blood sugars. Multiple missed post prandial values. 2 of 4 post prandial dinner values elevated. Maternal medicine nurse practitioners to review. 09/09/24: RPM reviewed; noted as above. Increased Toujeo to 30 units at bedtime 09/17/20245086-KVF-cnkuvamj fasting blood sugars. Several missed post prandial values; what is reported is overall stable (< 50% elevated). Maternal medicine nurse practitioners to review. 09/17/24: RPM reviewed; increased to Toujeo 35 units at bedtime 09/23/20247604-SRL-Dnydnhqf missed readings in past week. 3 of 4 elevated fasting blood sugars and 2 of 3 elevated post prandial dinner values. Maternal medicine nurse practitioners to review 09/23/24: RPM reviewed; increased to Toujeo 10 units with breakfast and 40 units at bedtime 09/28/20247874-LHM-nmspknio fasting blood sugars and post prandial dinner values. Maternal medicine nurse practitioners to review. 09/28/24: RPM reviewed; increased to Toujeo 15 units with breakfast and 45 units at bedtime 10/06/24: RPM reviewed; elevated fasting; increased to Toujeo 15 units with breakfast and 50 units at bedtime Assessment & Plan (10/01/2024 4:15 PM EST): Working with ADAPT. Assessment & Plan (08/06/2024 3:13 PM EST): Working with ADAPT. Assessment & Plan (07/08/2024 2:44 PM EST): Working with ADAPT. Assessment & Plan (06/09/2024 1:14 PM EDT): Working with [facility]T. Sugar log in reviewed with mild FBS elevations. Issue with insurance coverage for insulin. Will message diabetes team. Consider metformin vs insulin via [facility] or [facility]. Assessment & Plan (05/28/2024 11:45 AM EDT): RECOMMENDATIONS: Begin Lantus 5 units at bedtime Recommend ultrasound, surveillance and delivery as follows: A2GDM, recommend growth assessment with MFM every 4 weeks, initiate surveillance with twice weekly NSTs at 32 weeks and continue until delivery at 39 weeks. Recommend intrapartum monitoring every 1-2 hours (A2GDM) or every 4 hours (A1GDM) and treat with insulin if indicated. Recommend 2-hour glucose tolerance testing with 75-gram glucose load during admission (or 6-8 weeks if not completed). Assessment & Plan (05/07/2024 4:26 PM EDT): CONSIDERATIONS: Reviewed etiology and risks associated with gestational diabetes mellitus (GDM), including risks to , fetus, and maternal progression to Type 2 DM. Instructed on proper use of glucometer; supplies ordered, if indicated. Advised that life-long screening for diabetes is recommended every 1-3 years. RECOMMENDATIONS: Recommend monitoring blood sugars with daily fasting blood sugar (maintained at less than 95) and 1 hour postprandial measurements (maintained at less than 140). Medications should be adjusted to maintain these target values. Report levels to MFM (Maternal- Medicine) weekly. Recommend nutrition consult with RDN (Registered Dietitian Medical Insurance Claims Specialist). Lifestyle changes are also indicated including optimizing gestational weight gain and physical activity of 30 minutes per day, if not otherwise contraindicated in . Insulin is preferred if medications are indicated to optimize euglycemia. Metformin (preferred over glyburide) may also be used in some circumstances. Reviewed the risks and benefits of each. Recommend hemoglobin A1c testing now if diagnosed with GDM prior to 24 weeks as there is potential for pre-existing diabetes. If result is 6.5% or greater, then will diagnose with overt Type 2 DM and treat as pre-existing diabetes. If compliance later in gestation is question, a HBA1c can be assessed with a goal of less than 6%. Recommend early anatomy evaluation at 11-16 weeks gestation. Recommend anatomy survey at 19-20 weeks. Recommend echocardiography at 21-23 weeks if hemoglobin A1c 6.5% or greater Recommend ultrasound, surveillance and delivery as follows: A1GDM, delivery should be accomplished by 41w0d. A2GDM, recommend growth assessment with MFM every 4 weeks, initiate surveillance with twice weekly NSTs at 32 weeks and continue until delivery at 39 weeks. Recommend intrapartum monitoring every 1-2 hours (A2GDM) or every 4 hours (A1GDM) and treat with insulin if indicated. Recommend 2-hour glucose tolerance testing with 75-gram glucose load during admission (or 6-8 weeks if not completed). Assessment & Plan (05/07/2024 2:41 PM EDT): She presents for an early evaluation secondary to a recent diagnosis of GDM. She has a history of AMA, chronic hypertension, class III obesity, history of preeclampsia, and history of GDM in a prior . Today's ultrasound notes the following: The estimated weight is appropriate for gestational age. The visualized early anatomy is unremarkable in appearance. The amniotic fluid amount appears normal. Assessment & Plan (01/22/2023 9:51 AM EDT): CONSIDERATIONS: Reviewed etiology and risks associated with gestational diabetes mellitus (GDM), including risks to , fetus, and maternal progression to Type 2 DM. Instructed on proper use of glucometer; supplies ordered, if indicated. Advised that life-long screening for diabetes is recommended every 1-3 years. RECOMMENDATIONS: Recommend monitoring blood sugars with daily fasting blood sugar (maintained at less than or equal to 95) and 1 hour postprandial measurements (maintained at less than or equal to 140). Medications should be adjusted to maintain these target values. Report levels to MFM (Maternal- Medicine) weekly. Recommend nutrition consult with RDN (Registered Dietitian Medical Insurance Claims Specialist). Lifestyle changes are also indicated including optimizing gestational weight gain and physical activity of 30 minutes per day, if not otherwise contraindicated in . Insulin is preferred if medications are indicated to optimize euglycemia. Metformin (preferred over glyburide) may also be used in some circumstances. Reviewed the risks and benefits of each. Recommend ultrasound, surveillance and delivery as follows: o A1GDM, delivery should be accomplished by EDC o A2GDM, recommend growth assessment with MFM every 4 weeks, initiate surveillance at 32 weeks and continue until delivery at 39 weeks. Recommend intrapartum monitoring every 1-2 hours (A2GDM) or every 4 hours (A1GDM) and treat with insulin if indicated. Recommend 2-hour glucose tolerance testing with 75-gram glucose load 6-8 weeks . Supervision of high risk in third trim yuliya 10/03/2022 Multigravida of advanced maternal age in second trimester 10/03/2022 Overview (03/19/2024): Ms. Cross will be 34 years-old at time of delivery (ELOISE 10/27/24). Considering genetic screening; checking insurance coverage. Assessment & Plan (03/19/2024 4:45 PM EDT): CONSIDERATIONS: We reviewed the most pertinent aspects of the following: Advanced maternal age (AMA) refers to a woman with a anderson who will be at the age of 35 or older at the estimated time of delivery and may be associated with increased morbidity. Cell-free DNA (cffDNA) screening is a genetic screening option that analyzes maternal blood for DNA that is placental in origin and targets the following conditions: Trisomy 21 (Down syndrome), trisomy 18, trisomy 13, and sex chromosome abnormalities such as monosomy X (Cleveland syndrome), and sex chromosome trisomies (triple X, Klinefelter syndrome, XYY). It may also evaluate for other genetic alterations such as microdeletions, depending on the specific test. It reveals the sex of the fetus but should generally not be performed solely for this indication. The screening test can be performed after 10 weeks gestation. Results provided are NOT diagnostic, but provide a risk estimate. Types of results include low-risk/negative, high-risk/positive, and inconclusive. Low-risk results convey a low risk for the conditions screened, while high-risk results will indicate which condition is high risk and the likelihood of the condition based on the results. High-risk and inconclusive results would require follow up with a Maternal- Medicine genetic counselor. Amniocentesis would be recommended in the setting of high-risk results. Results are available 5-7 days after the test is completed. Cost of cffDNA screening is dependent on health insurance plan. Brochure provided to patient with contact information to call and inquire about insurance [place] [id number]). Patient aware not all insurances cover this test. The performing laboratory will bill the insurance directly. Offer MSAFP only (not Quad Screen) at 16-22 weeks if screening for open neural tube defects is desired. Amniocentesis for diagnosis of chromosomal abnormalities is also available. The risk of complications from the procedure and that risk is 1 in 500 (0.2%). In addition to the risk of chromosomal abnormalities, there is an increased risk of congenital/structural anomalies. RECOMMENDATIONS: Recommend MFM anatomy ultrasound at 19-20 weeks gestation. Assessment & Plan (10/25/2022 12:09 PM EST): She presents for a anatomy survey secondary to class III obesity, history of preeclampsia, AMA, and anxiety. Labs reviewed: -- declined genetic screening -- early 1 hour GCT elevated with a normal 3 hour GTT (fasting 96, remainder normal) We reviewed the results of today's ultrasound. The estimated weight is appropriate for gestational age. The visualized anatomy is unremarkable in appearance. The amniotic fluid amount appears normal. We discussed that ultrasound is not able to identify all anomalies, but it is reassuring that no anomalies were seen today. Assessment & Plan (10/03/2022 4:56 PM EST): CONSIDERATIONS: We reviewed the most pertinent aspects of the following: Advanced maternal age (AMA) refers to a woman with a anderson who will be at the age of 35 or older at the estimated time of delivery and may be associated with increased morbidity. After discussion of the genetic screening/testing options, the patient declines genetic screening and testing. In addition to the risk of chromosomal abnormalities, there is an increased risk of congenital/structural anomalies. RECOMMENDATIONS: Recommend MFM anatomy ultrasound at 19-20 weeks gestation. Anxiety during 10/03/2022 Overview (03/19/2024): Anxiety well controlled on Zoloft 100 mg daily. Denies depression symptoms as well as suicidal/homicidal ideation. Assessment & Plan (03/19/2024 4:42 PM EDT): ANXIETY AND DEPRESSION CONSIDERATIONS: Untreated maternal anxiety and depression may be associated with an increased risk of multiple poor obstetrical outcomes including miscarriages, low weight, and delivery. Women with a history of anxiety or depression are at risk for recurrence both during and/or the period. Studies of first-trimester SSRI exposure do not demonstrate consistent data to support an increased risk for structural malformations. Anti-anxiety or depression medications have been associated with transient effects (withdrawal syndrome). RECOMMENDATIONS: Mental illness can and should be treated during when the benefits of treatment outweigh potential risks. Referral to behavioral health services as clinically indicated. Assessment & Plan (10/03/2022 4:58 PM EST): ANXIETY AND DEPRESSION CONSIDERATIONS: Untreated maternal anxiety and depression may be associated with an increased risk of multiple poor obstetrical outcomes including miscarriages, low weight, and delivery. Women with a history of anxiety or depression are at risk for recurrence both during and/or the period. Studies of first-trimester SSRI exposure do not demonstrate consistent data to support an increased risk for structural malformations. Anti-anxiety or depression medications have been associated with transient effects (withdrawal syndrome). RECOMMENDATIONS: Mental illness can and should be treated during when the benefits of treatment outweigh potential risks. Referral to behavioral health services as clinically indicated. Obesity in , antepartum 10/03/2022 Overview (03/19/2024): Pre-gravid BMI 41.60 (#250, 5'5") Assessment & Plan (06/09/2024 1:13 PM EDT): Low risk NIPT appreciated. Plan of care reviewed; will schedule serial growth assessments q4-6 weeks. Assessment & Plan (03/19/2024 4:46 PM EDT): CONSIDERATIONS: Discussed obstetrical risks associated with class III obesity (pre- BMI of greater than or equal to 40) Reviewed that the accuracy of ultrasound at diagnosing anomalies is significantly decreased for women with an increased BMI. RECOMMENDATIONS: Recommend restricting weight gain during to 11-20 pounds. Patient should be referred for a nutrition consult. Recommend evaluation for signs and symptoms (snoring, excessive daytime sleepiness witnessed apnea or unexplained hypoxia) of obstructive sleep apnea. If any of these are present, referral to Sleep Medicine specialist for further evaluation should be considered. Recommend performing gestational diabetes mellitus screen now (if not performed at first visit) and repeat again at 26-28 weeks if early screen is normal. Recommend Maternal- Medicine ultrasound for anatomy at 20 weeks and for growth every 4 weeks thereafter. For patients with Class 3 obesity, we recommend baseline preeclamptic labs with CBC, serum AST/ALT/creatinine and ncxwnif-wy-vnaajuimgo ratio or 24-hour urine protein CECY if not already done. For patients with Class 3 obesity, we recommend weekly surveillance starting at 34 weeks and delivery by EDC. Recommend anesthesia consult during the antepartum period. Assessment & Plan (10/03/2022 4:57 PM EST): CONSIDERATIONS: Discussed obstetrical risks associated with class III obesity (pre- BMI of greater than or equal to 40) Reviewed that the accuracy of ultrasound at diagnosing anomalies is significantly decreased for women with an increased BMI. RECOMMENDATIONS: Recommend restricting weight gain during to 11-20 pounds. Patient should be referred for a nutrition consult. Recommend evaluation for signs and symptoms (snoring, excessive daytime sleepiness witnessed apnea or unexplained hypoxia) of obstructive sleep apnea. If any of these are present, referral to Sleep Medicine specialist for further evaluation should be considered. Recommend repeating gestational diabetes mellitus screen again at 26-28 weeks. Recommend Maternal- Medicine ultrasound for anatomy at 20 weeks and for growth every 4 weeks thereafter. For patients with Class 3 obesity, we recommend baseline preeclamptic labs with CBC, serum AST/ALT/creatinine and 24 hour urine protein CECY if not already done. For patients with Class 3 obesity, we recommend weekly surveillance starting at 34 weeks and delivery by EDC. Recommend anesthesia consult during the antepartum period. BEVERLY (generalized anxiety disorder) 07/03/2022 Gastroesophageal reflux disease without esophagi tis 07/03/2022 Hx of preeclampsia, prior , currently p regnant 08/31/2021 Overview (03/11/2024): PEC both pregnancies, 37w IOL Assessment & Plan (03/19/2024 4:45 PM EDT): CONSIDERATIONS: Discussed that the overall recurrence rate for pre-eclampsia is 20%. The recurrence risk of pre-eclampsia is 5-7% if it was uncomplicated pre-eclampsia in the prior . If it was pre-eclampsia with severe features in the prior , the recurrence risk goes up to 30-65%. Explained to patient that risk factors for development of pre-eclampsia include the primigravid state, history of pre-eclampsia in previous , family history of pre-eclampsia, presence of chronic hypertension, increased BMI, multiple gestation, pre-existing maternal renal disease or diabetes, advanced maternal age, antiphospholipid syndrome and other coagulopathies, chronic maternal autoimmune disease, or prolonged interval between pregnancies. Discussed with patient that the risks associated with a diagnosis of pre- eclampsia which is not monitored and not managed appropriately include development of HELLP syndrome or eclampsia (seizures) and end organ damage to liver, brain, kidneys, or fetus (manifested by growth restriction or ), and even maternal . RECOMMENDATIONS: Recommend baseline pre-eclamptic labwork be done early in subsequent pregnancies to include CBC, AST/ALT, creatinine, and 24 hour total urine protein. Patients should be monitored closely in subsequent pregnancies for signs of pre-eclampsia and managed appropriately to reduce the incidence of associated maternal and risks. Reviewed that pre-eclampsia and HELLP are not preventable conditions. There is some evidence that daily ASA 81mg may decrease the risk for recurrence in patients with a history of pre-eclampsia, and we recommend that she proceed with starting this therapy after 12 weeks. Assessment & Plan (10/03/2022 4:55 PM EST): DISCUSSION: 1. Discussed that the overall recurrence rate for pre-eclampsia is 20%. The recurrence risk of pre-eclampsia is 5-7% if it was uncomplicated pre-eclampsia in the prior . If it was pre-eclampsia with severe features in the prior , the recurrence risk goes up to 30-65%. 2. Explained to patient that risk factors for development of pre-eclampsia include the primigravid state, history of pre-eclampsia in previous , family history of pre-eclampsia, presence of chronic hypertension, increased BMI, multiple gestation, pre-existing maternal renal disease or diabetes, advanced maternal age, antiphospholipid syndrome and other coagulopathies, chronic maternal autoimmune disease, or prolonged interval between pregnancies. 3. Discussed with patient that the risks associated with a diagnosis of pre- eclampsia which is not monitored and not managed appropriately include development of HELLP syndrome or eclampsia (seizures) and end organ damage to liver, brain, kidneys, or fetus (manifested by growth restriction or ), and even maternal . RECOMMENDATIONS: 1. Recommend baseline pre-eclamptic labwork be done early in subsequent pregnancies to include CBC, AST/ALT, creatinine, and 24 hour total urine protein. Patients should be monitored closely in subsequent pregnancies for signs of pre-eclampsia and managed appropriately to reduce the incidence of associated maternal and risks. 2. Reviewed that pre-eclampsia and HELLP are not preventable conditions. There is some evidence that daily ASA 81mg may decrease the risk for recurrence in patients with a history of pre-eclampsia, and we recommend that she continue with this therapy. HSV (herpes simplex virus) infection 12/25/2018 Overview (12/25/2018): Needs valtrex at 36 wks Estimated Date of Delivery Comme nts Yes 10/27/2024 Based on Ultraso und documented as of this encounter (statuses as of 10/09/2024) Resolved Problems Problem Noted Date Diagnosed Date Resolved Date with 28 completed weeks gestation 08/10/2024 08/20/2024 Food insecurity 06/01/2024 10/07/2024 Overview: Per [facility] Protocol Abnormal glucose tolerance i n mother complicating 09/07/2022 06/09/2024 Overview (04/22/2024): GDM dx at 13w BMI 40.0-44.9, adult 08/10/2022 024 Overview (08/10/2022): Early glucola Baseline preeclamptic labs Growth u/s every 4wk after 20wks Weekly NST after 34 weeks Delivery by EDC Morbid obesity due to excess calories 07/03/2022 05/03/2023 Supervision of other normal , antepartum 08/31/2021 01/04/2023 Overview (08/10/2022): Valtrex at 36w Adjustment disorder with anxiety 08/31/2021 07/03/2022 Overview (08/31/2021): Stopped zoloft prior to , discussed restarting at [facility] Supervision of normal first , antepartum 12/25/2018 10/29/2019 Overview (05/28/2019): TDAP and Flu vaccine given 05/28/19 Sharon Layton LPN Obesity, Class I, BMI 30.0-3 4.9 (see actual BMI) 12/25/2018 08/31/2021 Overview (06/11/2019): Class 1-BMI 30-34.9: Early 50 gm glucose Only if GDMA1 or LGA:NST 2x/wk starting at 32 wks and deliver by [facility]LO[facility] MRSA infection 12/25/2018 07/03/2022 Overview (12/25/2018): Hx nasal infecton Other allergic rhinitis 03/24/201501/17 Acute maxillary sinusitis 03/24/2015 Contact with and suspected e xposure to communicable disease 03/24/2015 01/29/2017 Migraine 11/30/2013 01/29/2017 Mixed rhinitis 03/19/2013 01/29/2017 Recurrent sinus infections 03/19/2013 0 01/29/2017 Allergic rhinitis 08/13/2012 03/19/2013 Obesity, Class II, BMI 35-39 .9, isolated (see actual BMI) 08/13/2012 01/29/2017 Overview (08/13/2012): bmi= 35.53 08/13/12 Malaise and fatigue 01/08/2012 01/30/20 17 Fever 01/08/2012 03/19/2013 Cough 01/08/2012 01/29/2017 Acute nasopharyngitis 01/08/20122016 Chronic rhinitis 01/08/2012 03/19/2013 Dysfunction of eustachian tube 01/08/2012 01/29/2017 Family history of diabetes mellitus 07/16/2011 01/29/2017 Family history of other endo crine and metabolic diseases 07/16/2011 01/29/2017 Obesity, Class II, BMI 35-39 .9, isolated (see actual BMI) 01/30/2010 07/03/2022 Overview (08/31/2021): Early glucola Growth u/s every 4 weeks after 20wk Weekly NST at 37w documented as of this encounter (statuses as of 10/09/2024) Immunizations Name Administration Dates Next Due DTaP Dipth/Tet/Acell Pertussis (Infanrix), Peds 11/13/1998,12/17/1991,10/21/1989,1987,1988 HIB PRP-OMP, 3 dose (Pedvax) 12/17/1991,10/21/18 90 Hepatitis B, 0-19 yrs 03/25/2003,07/15/2000,06/19 MMR - Measles/Mumps/Rubella Vaccine 11/18/1998,0 12/17/1991 OPV - Polio Virus Vaccine (Oral) 992,10/21/1989,1988,1987 PPD 10/13/2017, 8,08/17/2015,2014 Seasonal Influenza Vac., MDV , IM, 0.5 mL (Fluzone) 08/24/2013 Seasonal Influenza, PF, 6 M & above, IM , (FluLaval or Fluzone) 06/18/2022,05/28/2019,06/28/2017 Seasonal Influenza, Quadriva lent, No Preserve, IM 05/03/2015 Seasonal Influenza, Trivalen t, (IIV3), PF, (Fluzone) 05/13/2024 TD, Preservative Free 09/04/1999 TDAP (age 10 and older)(Boostrix) 02/07/2023,05/2019 TDAP, Age 7 and older, IM (Adacel) 08/05/2024, documented as of this encounter Social History Tobacco Use Types Packs/Day Years Used Date Smoking Tobacco: Former Cigarettes 0.5 6 1 09/24/2004 - 07/24/2011 Passive Smoke Exposure: Past Smokeless Tobacco: Never Comments:As a child passive smoke Alcohol Use Standard Drinks/Week Comments Not Currently 0 (1 standard drink = 0.6 oz pur e alcohol) socially PHQ-2 Answer Date Recorded PHQ-2 Score -1 05/09/2020 Hunger Vital Sign Answer Date Recorded Within the past 12 months, y ou worried that your food would run out before you got the money to buy more. Sometimes true Within the past 12 months, t he food you bought just didn't last and you didn't have money to get more. Never true 06/2024 [place] Depression Scale Answer Date Recorded [place] Depression Scale Total 6 03/11/2024 The thought of harming myself has occurred to me . Never 03/11/2024 Childcare Answer Date Recorded Do you feel overwhelmed with taking care of a child, family member or friend? No 05/29/2024 Does your family need help f inding childcare? (Household - for ages 0-17 years) Not on file 05/29/2024 Clothing Answer Date Recorded Have you been unable to get clothing when it was really needed? Yes 05/29/2024 Is your family able to get c lothes or diapers when needed? (Household - for ages 0-17 years) Not on file 05/29/2024 Personal Safety Answer Date Recorded Do you feel unsafe or have concerns for your saf ety? No 05/29/2024 Do you have concerns for you r family's safety? (Household - for ages 0-17 years) Not on file 05/29/2024 Utilities Answer Date Recorded Do you have trouble paying y our heating, water, or electric bill? No 05/29/2024 Is your family able to pay t he heat, water, or electric bill? (Household - for ages 0-17 years) Not on file 05/29/2024 Does your family have access to good internet? (Household - for ages 0-17 years) Not on file 05/29/2024 Employment Status Answer Date Recorded Are you unemployed or without regular income? No 05/29/2024 Does the household have a re gular source of income? (Household - for ages 0-17 years) Not on file 05/29/2024 Social Connections Answer Date Recorded How often do you feel lonely or isolated from th ose around you? Never 05/29/2024 Financial Resource Strain Answer Date R ecorded Do you have any trouble payi ng for your medications, or do you think you might in the future? No 05/29/2024 Does your family have troubl e paying for medicine? (Household - for ages 0-17 years) Not on file 05/29/2024 Transportation Needs Answer Date Record ed READ ONLY Do you have troubl e getting a ride to medical visits or work? Never True 05/29/2024 Does your family have a hard time getting a ride to doctors visits? (Household - for ages 0-17 years) Not on file 05/29/2024 Has lack of transportation k ept you from medical appointments, meetings, work, or from getting things needed for daily living? Check all that apply. No 05/29/2024 Do you (or your family) have trouble finding or paying for a ride (transportation)? (Household - for ages 0-17 years) Not on file 05/29/2024 Housing Stability Answer Date Recorded Do you currently live in a s helter or have no steady place to sleep at night? No 05/29/2024 READ ONLY Do you think you a re at risk of becoming homeless? No 05/29/2024 Does your family worry about paying for your home or becoming homeless? (Household - for ages 0-17 years) Not on file 1 Are you homeless or worried that you might be in the future? No 05/29/2024 Are you (or your family) jorden eless or worried that you might be in the future? (Household - for ages 0-17 years) Not on file Food Insecurity Answer Date Recorded Do you need food for this week? No 05/29/2024 Are you able to get enough f ood for your family? (Household - for ages 0-17 years) Not on file 05/29/2024 Does your family need food t his week? (Household - for ages 0-17 years) Not on file 05/29/2024 Do you always have enough fo od for your family? (Household - for ages 0-17 years) Not on file 05/29/2024 Food Insecurity Answer Date Recorded Within the past 12 months, y ou worried that your food would run out before you got the money to buy more. Sometimes true Within the past 12 months, t he food you bought just didn't last and you didn't have money to get more. Never true 06/2024 Do you need food for this week? No 05/29/2024 Estimated Date of Delivery Comme nts Yes 10/27/2024 Based on Ultraso und Sex and Gender Information Value Date Recorded Sex Assigned at Female 09/14/2019 2:39 PM EST Legal Sex Female 7:10 AM EST Gender Identity Female 09/14/2019 2:39 PM EST Sexual Orientation Straight 09/14/2019 2: 39 PM EST Occupation Industry Job Start Date Job End Date [employer] Not on file Not on file Not on file documented as of this encounter Last Filed Vital Signs Vital Sign Reading Time Taken Comments Blood Pressure 136/88 10/09/2024 2:12 PM EST Pulse - - Temperature - - Respiratory Rate - - Oxygen Saturation - - Inhaled Oxygen Concentration - - Weight - - Height - - Body Mass Index - - documented in this encounter Nursing Notes * Jolene Bond LPN - 10/09/2024 2:12 PM EST Pt here today for BP check/urine dip Feel DUMONT improving with abx Denies and rt sided belly pain/unexplained swelling Taking HTN meds daily BP today 136/88 review with Naomi Fajardo who is ok with this reading and advised pt to return to office Saturday for OB visit. Call sooner with elevated readings or onset of new symptoms. Pt verbalized understanding. documented in this encounter Plan of Treatment Upcoming Encounters Date Type Department Care Team (Late st Contact Info) Description 10/12/2024 2:30 PM EST Office Visit Gynecology/Obstetrics Mickey Gracia [address] [place] [address] Jmaes Ervin MD [address] [place] [address] Chayo Gracia [facility] [address] [place] [address] 10/15/2024 1:45 PM EST Office Visit Gynecology/Obstetrics Mickey Gracia [address] [place] [address] Naomi Fajardo CRNP [address] [place] [address] Chayo Gracia [facility] [address] [place] [address] 10/19/2024 1:15 PM EST Office Visit Gynecology/Obstetrics Mickey Gracia [address] [place] [address] Candelaria Oneill CRNP [address] [place] [address] Chayo Gracia [facility] [address] [place] [address] Health Maintenance Due Date Last Done Comments Depression Screening 04/14/2021 04/14/2020 COVID-19 Vaccine ( season) 2024 GFR 10/07/2025 10/07/2024, 02/17, 03/01/2023, Additional history exists Pap Smear 04/11/2026 04/11/2023, 08/19, 09/01/2020, Additional history exists Diabetes Screening 10/07/2027 10/07/2024, 1 , 03/11/2024, Additional history exists Cervical Cancer Screening 04/11/2028 HPV/Co-Test 04/11/2028 04/11/2023 DTap/Tdap Vaccines (11 - Td or Tdap) 08/05/2034 08/05/2024, 02/07/2023, 05/28/2019, Additional history exists Influenza Vaccine (FLU shot) Completed , 06/18/2022, 05/24/2021, Additional history exists HPV (Gardasil) Vaccine Aged Out No lo nger eligible based on patient's age to complete this topic MENINGOCOCCAL (MENACTRA/MENVEO) Aged Out No longer eligible based on patient's age to complete this topic Meningitis B Vaccine (Bexsero/Trumemba) Aged Out No longer eligible based on patient's age to complete this topic Pneumococcal Vaccine: Pediatrics (0 to 5 Years) and At-Risk Patients (6 to 18 Years and 19+ Years) Aged Out No longer eligib le based on patient's age to complete this topic documented as of this encounter Medical Devices Not on filedocumented as of this encounter Procedures Procedure Name Priority Date/Time Associated Diagnosis Comments URINALYSIS OBSTETRICS, POINT OF CARE Routine 10/09/2024 2:03 PM EST Chronic hypertension in documented in this encounter Results * (ABNORMAL) URINALYSIS OBSTETRICS, POINT OF CARE (10/09/2024 2:03 PM EST) Color, Urine Yellow Light Yellow, Yellow 10/09/2024 2:05 PM EST [facility] Clarity, Urine Clear Clear 10/09/2024 2:05 PM EST [facility] Glucose, Urine Negative Negative mg/dL 10/09/2024 2:05 PM EST [facility] Bilirubin, Urine Negative Negative 10/09/2024 2:05 PM EST [facility] Ketone, Urine Negative Negative mg/dL 10/09/2024 2:05 PM EST [facility] Specific [place], Urine 1.025 1.003 - 1.030 10/09/2024 2:05 PM EST [facility] Blood, Urine Moderate(A) Negative 10/09/2024 2:05 PM EST [facility] pH, Urine 7.0 5.0, 5.5, 6.0, 6.5, 7.0, 7.5 units 10/09/2024 2:05 PM EST [facility] Protein, Urine Trace(A) Negative mg/dL 10/09/2024 2:05 PM EST [facility] Urobilinogen, Urine 0.2 0.2, 1.0 mg/dL 10/09/2024 2:05 PM EST [facility] Nitrite, Urine Negative Negative 10/09/2024 2:05 PM EST [facility] Esterase, Urine Negative Negative 10/09/2024 2:05 PM EST [facility] Urine 10/09/2024 2:03 PM EST 10/09/2024 2:05 PM EST James Ervin MD LAB POINT OF CARE TE ST DOCKED DEVICE UNSOLICITED RESULTS Final Result [facility] [address] [place] [address] documented in this encounter Visit Diagnoses Diagnosis Obesity affecting in second trimester- Primary Supervision of high-risk , second trimester BMI 40.0-44.9, adult (HCC) Body Mass Index 40.0-44.9, adult Hx of preeclampsia, prior , currently with other poor obstetric history Multigravida of advanced maternal age in second trimester Anxiety during in second trimester, antepartum Obesity affecting in second trimester- Primary BMI 40.0-44.9, adult (HCC) Body Mass Index 40.0-44.9, adult Multigravida of advanced maternal age in second trimester Hx of preeclampsia, prior , currently with other poor obstetric history Anxiety during in second trimester, antepartum Other specified related conditions, unspecified trimester Supervision of high risk , antepartum, third trimester- Primary Diet controlled gestational diabetes mellitus (GDM) in third trimester HTN in , chronic- Primary Benign essential hypertension complicating , childbirth, and the puerperium, unspecified as to episode of care Anxiety during History of gestational diabetes in prior , currently with other poor obstetric history Hx of preeclampsia, prior , currently with other poor obstetric history Obesity, Class III, BMI 40-49.9 (morbid obesity) (HCC) Morbid obesity Supervision of high-risk , unspecified trimester , supervision, high-risk, first trimester Obesity during Multigravida of advanced maternal age in first trimester Diet controlled gestational diabetes mellitus (GDM) in second trimester- Primary Supervision of high risk in second trimester Unspecified high-risk with 15 completed weeks gestation Obesity during - Primary Obesity, Class III, BMI 40-49.9 (morbid obesity) (HCC) Morbid obesity Multigravida of advanced maternal age in second trimester Hx of preeclampsia, prior , currently with other poor obstetric history History of gestational diabetes in prior , currently with other poor obstetric history HTN in , chronic Benign essential hypertension complicating , childbirth, and the puerperium, unspecified as to episode of care Diet controlled gestational diabetes mellitus (GDM) in second trimester Insulin controlled gestational diabetes mellitus (GDM) in second trimester- Primary Supervision of high risk in second trimester Unspecified high-risk with 18 completed weeks gestation Obesity during - Primary Multigravida of advanced maternal age in second trimester Insulin controlled gestational diabetes mellitus (GDM) in second trimester HTN in , chronic Benign essential hypertension complicating , childbirth, and the puerperium, unspecified as to episode of care 20 weeks gestation of state, incidental Encounter for anatomic survey Other specified related conditions, second trimester Multigravida of advanced maternal age in second trimester- Primary Gestational diabetes mellitus (GDM) in second trimester controlled on oral hypoglycemic drug Obesity in , antepartum Obesity complicating , childbirth, or the puerperium, antepartum condition or complication Chronic hypertension in Benign essential hypertension complicating , childbirth, and the puerperium, unspecified as to episode of care 24 weeks gestation of state, incidental Ultrasound for screening for growth restriction screening for growth retardation using ultrasonics Obesity in , antepartum- Primary Obesity complicating , childbirth, or the puerperium, antepartum condition or complication Gestational diabetes mellitus (GDM) in second trimester controlled on oral hypoglycemic drug Chronic hypertension in Benign essential hypertension complicating , childbirth, and the puerperium, unspecified as to episode of care Ultrasound for screening for growth restriction screening for growth retardation using ultrasonics 28 weeks gestation of state, incidental Multigravida of advanced maternal age in second trimester- Primary Obesity in , antepartum Obesity complicating , childbirth, or the puerperium, antepartum condition or complication Insulin controlled gestational diabetes mellitus (GDM) in third trimester Chronic hypertension in Benign essential hypertension complicating , childbirth, and the puerperium, unspecified as to episode of care Ultrasound for screening for growth restriction screening for growth retardation using ultrasonics 36 weeks gestation of state, incidental Chronic hypertension in - Primary Benign essential hypertension complicating , childbirth, and the puerperium, unspecified as to episode of care documented in this encounter Advance Directives * Full Code (Latest Code Status on File) Date Activated Date Inactivated Comments 06/27/2018 9:32 AM 06/27/2018 4:16 PM This order r eflects the patients wishes and were consensually agreed upon. Care Teams Batt Machine Operator Relationship Specialty Start Date End Date Nitin Cabrera MD PCP - General Family Medicine 10/25/10 documented as of this encounter
--- OUTSIDE RECORDS SUMMARY | 2024-10-18 06:51 | External Medical Summary | Summary of Care ---
Author Name Unknown Organization [facility] Address [address] [place] [address] Phone [phone] Care Team Providers Care Triage Licensed Practical Nurse Name Role Phone Nitin Cabrera MD Primary Care Provider [phone] Reason for Visit * Reason Onset Date Comments 09/04/2024 Encounter Details Date Type Department Care Team (Late st Contact Info) Description 09/04/2024 Telephone Gynecology/Obstetrics [facility] [address] [place] [id number] Naomi Fajardo CRNP [address] [place] [id number] Allergies Active Allergy Reactions Criticality Noted Date Comments Molds & Smuts Other (Please comment) High 03/10/2014 Pollen Other (Please comment) High 03/10/2014 documented as of this encounter (statuses as of 10/13/2024) Medications ZADITOR 0.025 % OP SOLNIndications: Conjunctivitis, allergic one drop each eye every 8-12 hrs for eye itching 1 Bottle 3 03/19/20 13 Active Additional Information Patient not taking.Reported on 10/08/2024 CETIRIZINE HCL 10 MG PO CAPS daily Active Blood Pressure Monitoring (BLOOD PRESSURE CUFF) [facility] [place] blood pressure cuff. Use as directed. 1 Each 10/23/19 20 Active Additional Information Patient not taking.Reported on [...] as needed (cough sob). 18 g 1 01/02/20 Active Additional Information Patient not taking.Reported on 10/08/2024 Breast PumpIndications: Breast feeding status of mother ELOISE 03/19/23, Z39.1, double electric pump 1 Each 01/05/20 Active Predictivez Flex System w/Device KitIndications:D iet controlled gestational diabetes mellitus (GDM), antepartum Use to test blood sugars 4 times daily (fasting, 1 hour after breakfast, lunch, and dinner) 1 Kit 04/23/20 Active Playroll Lancets 33GIndications:D iet controlled gestational diabetes mellitus (GDM) in second trimester Test blood sugar 4 times a day 100 Each 3 05/07/20 24 Active Aspirin 81 MG Oral Tablet Chewable (Aspirin 81) Take 1 Tablet by mouth in the morning. Active NIFEdipine ER Osmotic Release 30 MG Oral Tablet Extended Release 24 Hour (Procardia XL) TAKE 1 TABLET BY MOUTH EVERY DAY IN THE EVENING 30 Tablet 11 06/25/20 24 Active metFORMIN HCl 500 MG Oral Tablet (Glucophage)Rosario cations:Gestatio nal diabetes mellitus (GDM) in second trimester controlled on oral hypoglycemic drug Take 1000 mg (4 tablets) with bedtime snack. 90 Tablet 4 07/01/20 Active Additional Information Patient not taking.Reported on 10/08/2024 Predictivez In Vitro Strip (Glucose Blood) Use to test blood sugar 4 times a day (fasting, one hour after breakfast, lunch, and dinner) 150 Strip 3 07/13/20 24 Active Sharps ContainerIndicat ions:Insulin controlled gestational diabetes mellitus (GDM) in third trimester Use to dispose of lancets and pen needles. 1 Each 2 08/10/20 24 Active BD Pen Needle Mini U/F 31G X 5 MM (Insulin Pen Needle)Indicatio ns:Insulin controlled gestational diabetes mellitus (GDM) in third trimester Use with insulin pen to inject insulin 150 Each 5 08/10/20 Active Sertraline HCl 100 MG Oral Tablet (Zoloft) TAKE 1 TABLET BY MOUTH EVERY DAY IN THE MORNING 90 Tablet 1 04/22/20 24 025 Discontin ued(Refil l) documented as of this encounter (statuses as of 10/13/2024) Active Problems Problem Noted Date Diagnosed Date [...] daily. 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 BP stable thus far in current . [...] assessment of proteinuria (24-hour urine protein or mabaiwo-zz-rebcjbzuci ratio) and CBC, serum AST/ALT/creatinine. If patient [...] mellitus (GDM) in third trimester 01/04/2023 Overview (10/13/2024): Diagnosed at 13 weeks Nutrition consult ordered [...] MFM ADAPT consult complete. Referred to [facility]. Instructions provided to report blood sugars each [...] FU ADAPT for further gestational diabetes management 05/27/20243888-GJC-isluzaik fasting blood sugars persist. [facility] [place] attempting to contact patient to schedule follow up ADAPT with no success. Left message on patient's voicemail and sent her a message via [facility] attempting to schedule patient. 05/28/24: Adapt visit [...] with bedtime snack (reviewed with Dr. Lemon) 06/17/20240329-DFP-kokwtrof fasting blood sugars. Multiple missed readings. Sent message to update. Patient sent additional reading via message and fasting blood sugars elevated. Maternal medicine nurse practitioners to review. 06/17/24: RPM reviewed; increased to Metformin 1000 mg at bedtime 06/23/20241977-BQA-pkkjgnrk fasting blood sugars. Maternal medicine nurse practitioners to review 06/23/24: RPM reviewed; increased to Metformin 1500 mg at bedtime 07/01/20247971-LZY-ylbgqckc fasting blood sugars. Maternal medicine nurse practitioners [...] be 95+, will need to increase Metformin. 07/07/20248695-YNT-fytfeuez fasting blood sugars. Multiple missed post prandial [...] elevated; increase to Metformin 2000mg PO daily 07/29/20245588-ULA-yretnoetd via blake and messaging. 3 of 7 elevated fasting blood sugars. Multiple missed post prandial values. Sent message to be consistent with testing four times daily and reporting 08/04/20246759-IBQ-odcwebkk fasting blood sugars. Minimal post prandial values [...] with insurance and desires to purchase Lantus noo-bm-etbfzr with Good Rx coupon - Rx Lantus ordered 08/20/20240507-GTV-dcyhutnx fasting blood sugars. Maternal medicine nurse practitioners to review 08/20/24: RPM reviewed; Pt send msg stating she picked up Toujeo. I sent her a RPM message asking her what insulin she has - Semglee or Toujeo? 08/21/24: Pt reports she had Toujeo. Advised to begin Toujeo 10 units at bedtime. FBS continues to be elevated. 08/25/20243844-JEU-sudzaabc fasting blood sugars and some post prandial. Maternal medicine nurse practitioners to review 08/25/24: RPM reviewed; noted as above. Increase Toujeo to 15 units at bedtime 09/01/20242206-CJQ-vfrkwmri fasting blood sugars. Some missed post prandial values but those values overall stable. Sent message to maternal medicine nurse practitioners to review fasting blood sugars. 09/01/24: RPM reviewed; increased to Toujeo 25 units at bedtime 09/09/20249580-SZR-jontmwwv fasting blood sugars. Multiple missed post prandial values. 2 of 4 post prandial dinner values elevated. Maternal medicine nurse practitioners to review. 09/09/24: RPM reviewed; noted as above. Increased Toujeo to 30 units at bedtime 09/17/20246670-OCF-htqoeaqj fasting blood sugars. Several missed post prandial values; what is reported is overall stable (< 50% elevated). Maternal medicine nurse practitioners to review. 09/17/24: RPM reviewed; increased to Toujeo 35 units at bedtime 09/23/20242151-TTN-Dlwccxsf missed readings in past week. 3 of 4 elevated fasting blood sugars and 2 of 3 elevated post prandial dinner values. Maternal medicine nurse practitioners to review 09/23/24: RPM reviewed; increased to Toujeo 10 units with breakfast and 40 units at bedtime 09/28/20248023-IML-txwwllzq fasting blood sugars and post prandial dinner values. Maternal medicine nurse practitioners to review. 09/28/24: RPM reviewed; increased to Toujeo 15 units with breakfast and 45 units at bedtime 10/06/24: RPM reviewed; elevated fasting; increased to Toujeo 15 units with breakfast and 50 units at bedtime 10/13/24: RPM reviewed; overall stable. Assessment & Plan (10/01/2024 4:15 PM EST): [...] Recommend nutrition consult with RDN (Registered Dietitian Quad Stayer). Lifestyle changes are also indicated including optimizing [...] Recommend nutrition consult with RDN (Registered Dietitian Quad Stayer). Lifestyle changes are also indicated including optimizing [...] [place] coverage [place] [address]). Patient aware not all insurances cover this [...] preeclamptic labs with CBC, serum AST/ALT/creatinine and ywezvuw-jw-pbilbzgmaq ratio or 24-hour urine protein CECY if [...] as of this encounter (statuses as of 10/13/2024) Resolved Problems Problem Noted Date Diagnosed Date [...] as of this encounter (statuses as of 10/13/2024) Immunizations Name Administration Dates Next Due DTaP [...] money to get more. Never true 06/2024 [place] Depression Scale Answer Date Recorded [place] Depression Scale Total 6 03/11/2024 The thought [...] the money to buy more. 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 FMLA papers for spouse signed, faxed and placed in triage. Pt is picking up papers at next appointment. documented in this encounter Plan of Treatment Upcoming Encounters Date Type Department Care Team (Late st Contact Info) Description 10/15/2024 1:45 PM EST Office Visit Gynecology/Obstetrics [facility] [address] [place] [id number] Naomi Fajardo CRNP [address] [place] [phone] [facility] [address] [place] [id number] 10/19/2024 1:15 PM EST Office Visit Gynecology/Obstetrics [facility] [address] [place] [address] Candelaria Oneill CRNP [address] [place] [id number] [facility] [address] [place] [id number] Health Maintenance Due Date Last Done Comments [...] Not on filedocumented as of this encounter Advance Directives * Full Code (Latest Code Status on File) Date Activated Date Inactivated Comments 06/27/2018 9:32 AM 06/27/2018 4:16 PM This order r eflects the patients wishes and were consensually agreed upon. Care Teams Triage Licensed Practical Nurse Relationship Specialty Start Date End Date Nitin Cabrera MD PCP - General Family Medicine 10/25/10 documented as of this encounter
--- OUTSIDE RECORDS SUMMARY | 2024-10-18 06:51 | External Medical Summary | Summary of Care ---
Author Name Unknown Organization [facility] Address [address] [place] [address] Phone [phone] Care Team Providers Care Returned Item Clerk Name Role Phone Nitin Cabrera MD Primary Care Provider [phone] Reason for Visit * Reason Comments Return Visit Non Stress Test Encounter Details Date Type Department Care Team (Latest Contact Info) Description 10/15/2024 1:45 PM EST Office Visit Gynecology/Obstetric s Jonathan'daysi Gracia [address] [place] [phone] Naomi Fajardo CRNP [address] [place] [phone] Basil Non Stress Tests Gudelia [address] [place] [phone] Supervision of high risk in third trimester*; Hx of preeclampsia, prior , currently ; Multigravida of advanced maternal age in second trimester; Anxiety during ; Obesity in , antepartum; Insulin controlled gestational diabetes mellitus (GDM) in third trimester; History of gestational diabetes in prior , currently ; HSV (herpes simplex virus) infection; Chronic hypertension in ; Obesity, Class III, BMI 40-49.9 (morbid obesity) (HCC); Carrier of group B Streptococcus Allergies Active Allergy Reactions Criticality Noted Date Comments Molds & Smuts Other (Please comment) High 03/10/2014 Pollen Other (Please comment) High 03/10/2014 documented as of this encounter (statuses as of 10/15/2024) Medications ZADITOR 0.025 % OP SOLNIndications: Conjunctivitis, allergic one drop each eye every 8-12 hrs for eye itching 1 Bottle 3 3 Active Additional Information Patient not taking.Reported on 10/08/2024 CETIRIZINE HCL 10 MG PO CAPS daily Active Blood Pressure Monitoring (BLOOD PRESSURE CUFF) [facility] Self blood pressure cuff. Use as directed. [...] double electric pump 1 Each 3 Active OneTouch Verio Flex System w/Device KitIndications:D iet controlled gestational diabetes mellitus (GDM), antepartum Use to test blood sugars 4 times daily (fasting, 1 hour after breakfast, lunch, and dinner) 1 Kit 4 Active OneTouch Delica Lancets 33GIndications:D iet controlled gestational diabetes mellitus [...] tablets) with bedtime snack. 90 Tablet 4 11/13/202 4 Active Additional Information Patient not taking.Reported on 10/08/2024 OneTouch Verio In Vitro Strip (Glucose Blood) Use to [...] at bedtime 7.5 mL 5 5 Active documented as of this encounter (statuses as of 10/15/2024) Active Problems Problem Noted Date Diagnosed Date [...] daily. 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 BP stable thus far in current . [...] assessment of proteinuria (24-hour urine protein or uxnrfmh-js-pshwtajlzo ratio) and CBC, serum AST/ALT/creatinine. If patient [...] Date/Time 50-G GEST[facility] GLUCOSE, 1 HOUR [facility] 04/10/2024 04:24 PM 100-G GESTATIONAL GLUCOSE, 1 HOUR - [facility] 171 04/22/2024 10:34 AM 100-G GESTATIONAL GLUCOSE, 2 HOUR - [facility] 159 (H) 04/22/2024 11:33 AM 100-G GESTATIONAL GLUCOSE, 3 HOUR - [facility] 136 04/22/2024 12:35 PM 100-G GESTATIONAL GLUCOSE, FASTING - [facility] 97 (H) 04/22/2024 09:31 AM 05/07/24: MFM ADAPT consult complete. Referred to [facility]. Instructions provided to report blood sugars each week for MFM review. Past history of diet controlled gestational diabetes. Reviewed diet & exercise recommendations. Will start having a bedtime snack, discussed fasting no longer than 8-10 hours overnight. Continues to work on diet to make better food choices. 05/13/2024-Enrolled in [employer] [facility] 05/12/2024. 2 of 2 elevated fasting blood sugars. Advised to watch diet, eat bedtime snack, and avoid fasting longer than 8 to 10 hours. Will review again next week, and if persists, will schedule for follow up ADAPT with maternal medicine nurse practitioner. 05/20/24: RPM elevated fasting; message sent to PARs to scheduled FU ADAPT for further gestational diabetes management 05/27/20243068-WAH-luzxwply fasting blood sugars persist. [facility] PARs attempting to contact patient to schedule follow up ADAPT with no success. Left message on patient's voicemail and sent her a message via [employer] attempting to schedule patient. 05/28/24: Adapt visit [...] with bedtime snack (reviewed with Dr. Lemon) 06/17/20247180-FNG-yqlcoiwh fasting blood sugars. Multiple missed readings. Sent message to update. Patient sent additional reading via message and fasting blood sugars elevated. Maternal medicine nurse practitioners to review. 06/17/24: RPM reviewed; increased to Metformin 1000 mg at bedtime 06/23/20247007-UUS-llyuuxoq fasting blood sugars. Maternal medicine nurse practitioners to review 06/23/24: RPM reviewed; increased to Metformin 1500 mg at bedtime 07/01/20249089-XPX-qcyaqvqq fasting blood sugars. Maternal medicine nurse practitioners [...] be 95+, will need to increase Metformin. 07/07/20249503-ISD-oygrhahu fasting blood sugars. Multiple missed post prandial [...] elevated; increase to Metformin 2000mg PO daily 07/29/20246496-DLD-nacbzdblu via [employer]ake and messaging. 3 of 7 elevated fasting blood sugars. Multiple missed post prandial values. Sent message to be consistent with testing four times daily and reporting 08/04/20246682-ODB-ttucdzpm fasting blood sugars. Minimal post prandial values [...] with insurance and desires to purchase Lantus vls-ar-gacpvy with Good Rx coupon - Rx Lantus ordered 08/20/20242671-XSW-roiboqra fasting blood sugars. Maternal medicine nurse practitioners to review 08/20/24: RPM reviewed; Pt send msg stating she picked up Toujeo. I sent her a RPM message asking her what insulin she has - Semglee or Toujeo? 08/21/24: Pt reports she had Toujeo. Advised to begin Toujeo 10 units at bedtime. FBS continues to be elevated. 08/25/20240742-KCA-mgyfuswu fasting blood sugars and some post prandial. Maternal medicine nurse practitioners to review 08/25/24: RPM reviewed; noted as above. Increase Toujeo to 15 units at bedtime 09/01/20249442-YSC-kojgosez fasting blood sugars. Some missed post prandial values but those values overall stable. Sent message to maternal medicine nurse practitioners to review fasting blood sugars. 09/01/24: RPM reviewed; increased to Toujeo 25 units at bedtime 09/09/20249461-SMX-dmvnnwvg fasting blood sugars. Multiple missed post prandial values. 2 of 4 post prandial dinner values elevated. Maternal medicine nurse practitioners to review. 09/09/24: RPM reviewed; noted as above. Increased Toujeo to 30 units at bedtime 09/17/20244905-IQV-pnbftcrc fasting blood sugars. Several missed post prandial values; what is reported is overall stable (< 50% elevated). Maternal medicine nurse practitioners to review. 09/17/24: RPM reviewed; increased to Toujeo 35 units at bedtime 09/23/20240662-CVS-Hrnkpzkf missed readings in past week. 3 of 4 elevated fasting blood sugars and 2 of 3 elevated post prandial dinner values. Maternal medicine nurse practitioners to review 09/23/24: RPM reviewed; increased to Toujeo 10 units with breakfast and 40 units at bedtime 09/28/20241678-RFQ-bydufvuh fasting blood sugars and post prandial dinner [...] Recommend nutrition consult with RDN (Registered Dietitian Garde Manager). Lifestyle changes are also indicated including optimizing [...] Recommend nutrition consult with RDN (Registered Dietitian Garde Manager). Lifestyle changes are also indicated including optimizing [...] [place] [address]). Patient aware not all insurances cover this [...] increased risk of congenital/structural anomalies. RECOMMENDATIONS: Recommend [facility] anatomy ultrasound at 19-20 weeks gestation. Assessment [...] preeclamptic labs with CBC, serum AST/ALT/creatinine and aqtczzs-ne-hxtilkwphv ratio or 24-hour urine protein CECY if [...] as of this encounter (statuses as of 10/15/2024) Resolved Problems Problem Noted Date Diagnosed Date [...] as of this encounter (statuses as of 10/15/2024) Immunizations Name Administration Dates Next Due DTaP [...] money to get more. Never true 06/2024 [place] Depression Scale Answer Date Recorded [place] Depression Scale Total 6 03/11/2024 The thought [...] 05/29/2024 Does the household have a re lar source of income? 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 Checking BP at home, is good every day. Has IOL 3/4. ASSESSMENT assessment with Non-stress Test completed on 10/15/2024 at 38.2weeks gestation for indication of gestational diabetes mellitus and obesity heart baseline: 140 bpm Variability: Moderate Decelerations: absent Accelerations: present Contractions: None NST start time: 1353 NST stop time: 1431 NST strip reviewed, interpreted, and approved by OB provider, JORGE ALBERTO Colon . NST strip stored in clinic storage file documented in this encounter Nursing Notes * Yudy Mixon LPN - 10/15/2024 1:36 PM EST 38w2d NST/CASSY documented in this encounter Plan of Treatment Upcoming Encounters Date Type Department Care Team (Late st Contact Info) Description 10/19/2024 1:15 PM EST Office Visit Gynecology/Obstetrics Mickey Gracia [address] [place] [phone] BackerCandelaria CRNP [address] [place] [phone] Chayo Gracia Stress Tests Gudelia [address] [place] [phone] Health Maintenance Due Date Last Done Comments [...] Diagnosis Comments URINALYSIS OBSTETRICS, POINT OF CARE [facility] 10/15/2024 1:59 PM EST documented in this encounter Results * (ABNORMAL) URINALYSIS OBSTETRICS, POINT OF CARE (10/15/2024 1:59 PM EST) Color, Urine Yellow Light Yellow, Yellow 10/15/2024 3:00 PM EST [facility]10 Clarity, Urine Clear Clear 10/15/2024 3:00 PM EST [facility] Glucose, Urine Negative Negative mg/dL 10/15/2024 3:00 PM EST [facility] Bilirubin, Urine Negative Negative 10/15/2024 3:00 PM EST [facility] Ketone, Urine Negative Negative mg/dL 10/15/2024 3:00 PM EST [facility] Specific [place], Urine 1.010 1.003 - 1.030 10/15/2024 3:00 PM EST [facility] Blood, Urine Small(A) Negative 10/15/2024 3:00 PM EST [facility] pH, Urine 7.0 5.0, 5.5, 6.0, 6.5, 7.0, 7.5 units 10/15/2024 3:00 PM EST [facility] Protein, Urine Negative Negative mg/dL 10/15/2024 3:00 PM EST [facility] Urobilinogen, Urine 0.2 0.2, 1.0 mg/dL 10/15/2024 3:00 PM EST [facility] Nitrite, Urine Negative Negative 10/15/2024 3:00 PM EST [facility] Esterase, Urine Negative Negative 10/15/2024 3:00 PM EST [facility] Urine 10/15/2024 1:59 PM EST 10/15/2024 3:00 PM EST Naomi Fajardo [facility] POINT OF CARE TE ST DOCKED DEVICE UNSOLICITED RESULTS Final Result [facility] [address] [place] [address] documented in this encounter Visit Diagnoses Diagnosis Obesity affecting in second trimester- Primary Supervision of high-risk , second trimester BMI 40.0-44.9, adult ([facility]) Body Mass Index 40.0-44.9, adult Hx of [...] ultrasonics 36 weeks gestation of state, incidental Supervision of high risk in third trimester- Primary Unspecified high-risk Hx of preeclampsia, prior , currently with other poor obstetric history Multigravida of advanced maternal age in second trimester Anxiety during Obesity in , antepartum Obesity complicating , childbirth, or the puerperium, antepartum condition or complication Insulin controlled gestational diabetes mellitus (GDM) in third trimester History of gestational diabetes in prior , currently with other poor obstetric history HSV (herpes simplex virus) infection Herpes simplex without mention of complication Chronic hypertension in Benign essential hypertension complicating , childbirth, and the puerperium, unspecified as to episode of care Obesity, Class III, BMI 40-49.9 (morbid obesity) (HCC) Morbid obesity Carrier of group B Streptococcus Carrier or suspected carrier of Group B streptococcus documented in this encounter Advance Directives * Full Code (Latest Code Status on File) Date Activated Date Inactivated Comments 06/27/2018 9:32 AM 06/27/2018 4:16 PM This order r eflects the patients wishes and were consensually agreed upon. Care Teams Returned Item Clerk Relationship Specialty Start Date End Date Nitin Cabrera MD PCP - General Family Medicine 10/25/10 documented as of this encounter
--- OUTSIDE RECORDS SUMMARY | 2024-10-18 06:51 | External Medical Summary ---
Author Name Unknown Address Unknown Organization [id number]:[facility] [place] - [address] [place] [address] Laboratory Report Ordering Provider Test Date Status SHERRILL MARXU 10/12/2024 14:56:14 Final Normal: <150 mg/ g creatinine
High: 150-500 mg/g creatinine
Very High: >500 mg/g creatinine
Nephrotic: >3000 mg/g creatinine Observation Date Value Abnormality Reference (Units ) Status Protein/Creatinine [Ratio] in Urine 10/12/2024 14:56:14 174 Above high normal <150 (mg/g ) Final Protein, Urine 10/12/2024 14:56:14 24 (mg/dL) Final Creatinine, Urine 10/12/2024 14:56:14 138 (mg/dL) Final Performing Location [facility] [place] - [address] [place] [address]
--- OUTSIDE RECORDS SUMMARY | 2024-10-18 06:51 | External Medical Summary | Summary of Care ---
Author Name Unknown Organization [facility] Address [address] [place] [address] Phone [phone] Care Team Providers Care Local Bulk Driver Name Role Phone Nitin Cabrera MD Primary Care Provider [phone]- [phone] Reason for Visit * Reason Comments Return Visit Encounter Details Date Type Department Care Team (Latest Contact Info) Description 10/08/2024 1:45 PM EST Office Visit Gynecology/Obstetric s [facility] [address] [place] [address] Naomi Fajardo CRNP [address] [place] [address] Basil Non Stress Tests [facility] [address] [place] [address] HSV (herpes simplex virus) infection*; Hx of preeclampsia, prior , currently ; Supervision of high risk in third trimester; Multigravida of advanced maternal age in second trimester; Anxiety during ; Obesity in , antepartum; Insulin controlled gestational diabetes mellitus (GDM) in third trimester; History of gestational diabetes in prior , currently ; Chronic hypertension in ; Obesity, Class III, BMI 40-49.9 (morbid obesity) (HCC); Carrier of group B Streptococcus Allergies Active Allergy Reactions Criticality Noted Date Comments Molds & Smuts Other (Please comment) High 03/10/2014 Pollen Other (Please comment) High 03/10/2014 documented as of this encounter (statuses as of 10/08/2024) Medications ZADITOR 0.025 % OP SOLNIndications: Conjunctivitis, allergic one drop each eye every 8-12 hrs for eye itching 1 Bottle 3 3 Active Additional Information Patient not taking.Reported on 10/08/2024 CETIRIZINE HCL 10 MG PO CAPS daily Active Blood Pressure Monitoring (BLOOD PRESSURE CUFF) [facility] [place] blood [place] cuff. Use as directed. [...] Information Patient not taking.Reported on 10/08/2024 OneTouch VerStoke In Vitro Strip (Glucose Blood) Use to [...] as of this encounter (statuses as of 10/08/2024) Active Problems Problem Noted Date Diagnosed Date [...] daily. Patient monitors blood sugars at work ([employer]). BP stable thus far in current . [...] assessment of proteinuria (24-hour urine protein or oprveiz-lt-teybhgxjoc ratio) and CBC, serum AST/ALT/creatinine. If patient [...] MFM ADAPT consult complete. Referred to Current [facility]. Instructions provided to report blood sugars each week for MFM review. Past history of diet controlled gestational diabetes. Reviewed diet & exercise recommendations. Will start having a bedtime snack, discussed fasting no longer than 8-10 hours overnight. Continues to work on diet to make better food choices. 05/13/2024-Enrolled in [employer] 05/12/2024. 2 of 2 elevated fasting blood sugars. Advised to watch diet, eat bedtime snack, and avoid fasting longer than 8 to 10 hours. Will review again next week, and if persists, will schedule for follow up ADAPT with maternal medicine nurse practitioner. 05/20/24: RPM elevated fasting; message sent to PARs to scheduled FU ADAPT for further gestational diabetes management 05/27/20249269-VHN-zfxewmrg fasting blood sugars persist. [facility] [place]s attempting to contact patient to schedule follow up ADAPT with no success. Left message on patient's voicemail and sent her a message via [employer] attempting to schedule patient. 05/28/24: [facility] visit [...] with bedtime snack (reviewed with Dr. Lemon) 06/17/20243397-GVL-mqogvaau fasting blood sugars. Multiple missed readings. Sent message to update. Patient sent additional reading via message and fasting blood sugars elevated. Maternal medicine nurse practitioners to review. 06/17/24: RPM reviewed; increased to Metformin 1000 mg at bedtime 06/23/20243891-EAG-rzdtnbwz fasting blood sugars. Maternal medicine nurse practitioners to review 06/23/24: RPM reviewed; increased to Metformin 1500 mg at bedtime 07/01/20248372-CLS-tnfyaukt fasting blood sugars. Maternal medicine nurse practitioners [...] be 95+, will need to increase Metformin. 07/07/20248760-CPT-qivaibsz fasting blood sugars. Multiple missed post prandial [...] elevated; increase to Metformin 2000mg PO daily 07/29/20240107-CMG-vvbqiwnyz via blake and messaging. 3 of 7 elevated fasting blood sugars. Multiple missed post prandial values. Sent message to be consistent with testing four times daily and reporting 08/04/20242420-DFN-ysmmxarh fasting blood sugars. Minimal post prandial values [...] with insurance and desires to purchase Lantus nbs-ck-lerque with Good Rx coupon - Rx Lantus ordered 08/20/20249027-GPI-dhpmxsjc fasting blood sugars. Maternal medicine nurse practitioners to review 08/20/24: RPM reviewed; Pt send msg stating she picked up Toujeo. I sent her a RPM message asking her what insulin she has - Semglee or Toujeo? 08/21/24: Pt reports she had Toujeo. Advised to begin Toujeo 10 units at bedtime. FBS continues to be elevated. 08/25/20245718-TJC-vbdcnklr fasting blood sugars and some post prandial. Maternal medicine nurse practitioners to review 08/25/24: RPM reviewed; noted as above. Increase Toujeo to 15 units at bedtime 09/01/20241417-MVD-irmnzmuz fasting blood sugars. Some missed post prandial values but those values overall stable. Sent message to maternal medicine nurse practitioners to review fasting blood sugars. 09/01/24: RPM reviewed; increased to Toujeo 25 units at bedtime 09/09/20247676-JNT-iiuzzbxk fasting blood sugars. Multiple missed post prandial values. 2 of 4 post prandial dinner values elevated. Maternal medicine nurse practitioners to review. 09/09/24: RPM reviewed; noted as above. Increased Toujeo to 30 units at bedtime 09/17/20245208-TCI-unfneegx fasting blood sugars. Several missed post prandial values; what is reported is overall stable (< 50% elevated). Maternal medicine nurse practitioners to review. 09/17/24: RPM reviewed; increased to Toujeo 35 units at bedtime 09/23/20247388-FWA-Bvbswyxd missed readings in past week. 3 of 4 elevated fasting blood sugars and 2 of 3 elevated post prandial dinner values. Maternal medicine nurse practitioners to review 09/23/24: RPM reviewed; increased to Toujeo 10 units with breakfast and 40 units at bedtime 09/28/20242432-ZLL-tjfninyk fasting blood sugars and post prandial dinner [...] Recommend nutrition consult with RDN (Registered Dietitian Electronic Warfare Technician). Lifestyle changes are also indicated including optimizing [...] Recommend nutrition consult with RDN (Registered Dietitian Electronic Warfare Technician). Lifestyle changes are also indicated including optimizing [...] insurance coverage and cost ([place] [address]). Patient aware not all insurances cover this [...] preeclamptic labs with CBC, serum AST/ALT/creatinine and digeeuu-wc-oicbhcddze ratio or 24-hour urine protein CECY if [...] as of this encounter (statuses as of 10/08/2024) Resolved Problems Problem Noted Date Diagnosed Date [...] as of this encounter (statuses as of 10/08/2024) Immunizations Name Administration Dates Next Due DTaP [...] money to get more. Never true 06/2024 [place] Depression Scale Answer Date Recorded [place] Depression Scale Total 6 03/11/2024 The thought [...] Industry Job Start Date Job End Date [employer] Not on file Not on file Not on file documented as of this encounter Last Filed Vital Signs Vital Sign Reading Time Taken Comments Blood Pressure 132/88 10/08/2024 1:26 PM EST Pulse - - Temperature - - Respiratory Rate - - Oxygen Saturation - - Inhaled Oxygen Concentration - - Weight 122.5 kg (270 lb) 10/08/2024 1:26 PM EST Height - - Body Mass Index 44.93 09/21/2024 2:24 PM EST documented in this encounter Progress Notes * Naomi Fajardo CRNP - 10/08/2024 1:43 PM EST 37w2d Was seen yesterday by PCP for sinus infection. Had elevated BP at that time, subsequently sent to L&D. Did not rule in for preeclampsia. NST category 1. She has started on amoxicillin for her sinus infection, not yet starting to feel better. She reports good FM. Denies contractions, bleeding, LOF. BP mildly elevated today. Unable to provide enough urine for protein/creatinine ratio. Will return to clinic tomorrow for BP check and urine dip. JORGE ALBERTO Colon * Wanda Bradley CMA - 10/08/2024 1:26 PM EST 37w2d Went to ER yesterday after PCP visit. NST and labs completed all WNL. documented in this encounter Plan of Treatment Upcoming Encounters Date Type Department Care Team (Late st Contact Info) Description 10/09/2024 2:00 PM EST Nurse Only Gynecology/Obstetrics Mickey Gracia [address] [place] [address] Gw, Nurse Obgyn Injection [address] [place] [address] 10/12/2024 2:30 PM EST Office Visit Gynecology/Obstetrics Mickey Gr[facility] [address] [place] [address] James Ervin MD [address] [place] [address] Chayo Gracia Stress Tests [facility] [address] [place] [address] 10/15/2024 1:45 PM EST Office Visit Gynecology/Obstetrics [facility] [address] [place] [address] Naomi Fajardo CRNP [address] [place] [address] Gracia, Non Stress Tests [facility] [address] [place] [address] 10/19/2024 1:15 PM EST Office Visit Gynecology/Obstetrics Mickey [facility] [address] [place] [address] ArnolerCandelaria CRNP [address] [place] [address] Gracia, Non Stress Tests [facility] [address] [place] [address] Health Maintenance Due Date Last Done Comments [...] Not on filedocumented as of this encounter Visit Diagnoses Diagnosis Obesity affecting in second trimester- Primary Supervision of high-risk , second trimester BMI 40.0-44.9, adult ([facility]) Body Mass Index 40.0-44.9, adult Hx of preeclampsia, prior , currently with other poor obstetric history Multigravida of advanced maternal age in second trimester Anxiety during in second trimester, antepartum Obesity affecting in second trimester- Primary BMI 40.0-44.9, adult ([facility]) Body Mass Index 40.0-44.9, adult Multigravida of [...] Obesity, Class III, BMI 40-49.9 (morbid obesity) ([facility]) Morbid obesity Supervision of high-risk , unspecified trimester , supervision, high-risk, first trimester Obesity during Multigravida of advanced maternal age in first trimester Diet controlled gestational diabetes mellitus (GDM) in second trimester- Primary Supervision of high risk in second trimester Unspecified high-risk with 15 completed weeks gestation Obesity during - Primary Obesity, Class III, BMI 40-49.9 (morbid obesity) ([facility]) Morbid obesity Multigravida of advanced maternal age [...] ultrasonics 36 weeks gestation of state, incidental HSV (herpes simplex virus) infection- Primary Herpes simplex without mention of complication Hx of preeclampsia, prior , currently with other poor obstetric history Supervision of high risk in third trimester Unspecified high-risk Multigravida of advanced maternal age in second trimester Anxiety during Obesity in , antepartum Obesity complicating , childbirth, or the puerperium, antepartum condition or complication Insulin controlled gestational diabetes mellitus (GDM) in third trimester History of gestational diabetes in prior , currently with other poor obstetric history Chronic hypertension in Benign essential hypertension complicating [...] and were consensually agreed upon. Care Teams Local Bulk Driver Relationship Specialty Start Date End Date Nitin Cabrera MD PCP - General Family Medicine 10/25/10 documented as of this encounter
--- OUTSIDE RECORDS SUMMARY | 2024-10-18 06:51 | External Medical Summary ---
Author Name Unknown Address Unknown Organization [facility] [place] [address] Laboratory Report Ordering Provider Test Date Status ROSE MARIE MARX 10/09/2024 14:03:00 Final Observation Date Value Abnormality Reference (Units ) Status Color of Urine by Auto 10/09/2024 14:03:00 Yellow Light Yellow, Yellow Final Clarity, Urine 10/09/2024 14:03:00 Clear Clear Final Glucose [Mass/volume] in Urine by Automated test strip 10/09/2024 14:03:00 Negative Negative (mg/dL) Final Bilirubin.total [Presence] in Urine by Automated test strip 10/09/2024 14:03:00 Negative Negative Final Ketones [Mass/volume] in Urine by Automated test strip 10/09/2024 14:03:00 Negative Negative (mg/dL) Final Specific gravity, Urine 10/09/2024 14:03:00 1.025 1.003-1.030 Final Hemoglobin [Presence] in Urine by Automated test strip 10/09/2024 14:03:00 Moderate Abnormal Negative Final pH, Urine 10/09/2024 14:03:00 7.0 5.0, 5.5, 6.0, 6.5, 7.0, 7.5 (units) Final Protein [Mass/volume] in Urine by Automated test strip 10/09/2024 14:03:00 Trace Abnormal Negative (mg/dL) Final Urobilinogen, Urine 10/09/2024 14:03:00 0.2 0.2, 1.0 (mg/dL) Final Nitrite [Presence] in Urine by Automated test strip 10/09/2024 14:03:00 Negative Negative Final Leukocyte esterase [Presence] in Urine by Automated test strip 10/09/2024 14:03:00 Negative Negative Final Performing Location [facility] [address] [place] [address]
--- OUTSIDE RECORDS SUMMARY | 2024-10-18 06:51 | External Medical Summary | Summary of Care ---
Author Name Unknown Organization [facility] Address [address] [place] [address] Phone [phone] Care Team Providers Care Membership Counselor Name Role Phone Nitin Cabrera MD Primary Care Provider [phone]- [phone] Reason for Visit * Reason Comments Follow Up Encounter Details Date Type Department Care Team (Latest Contact Info) Description 10/12/2024 2:30 PM EST Office Visit Gynecology/Obstetric s Mickey Gracia [address] [place] [address] James Ervin MD [address] [place] [address] Chayo Gracia Stress Tests [facility] [address] [place] [address] Chronic hypertension in *; HSV (herpes simplex virus) infection; Hx of preeclampsia, prior , currently ; Supervision of high risk in third trimester; Multigravida of advanced maternal age in second trimester; Anxiety during ; Obesity in , antepartum; Insulin controlled gestational diabetes mellitus (GDM) in third trimester; History of gestational diabetes in prior , currently ; Obesity, Class III, BMI 40-49.9 (morbid [...] Active Blood Pressure Monitoring (BLOOD PRESSURE CUFF) [facility] [place]. Use as directed. [...] Information Patient not taking.Reported on 10/08/2024 OneTouch VerNeuronetics In Vitro Strip (Glucose Blood) Use to [...] this for 5 days. 10 Tablet 5 025 documented as of this encounter (statuses as [...] daily. 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 BP stable thus far in current . [...] assessment of proteinuria (24-hour urine protein or eymotke-cy-ybskplwtlo ratio) and CBC, serum AST/ALT/creatinine. If patient [...] MFM ADAPT consult complete. Referred to Current [facility]. Instructions provided to report blood sugars each week for MFM review. Past history of diet controlled gestational diabetes. Reviewed diet & exercise recommendations. Will start having a bedtime snack, discussed fasting no longer than 8-10 hours overnight. Continues to work on diet to make better food choices. 05/13/2024-Enrolled in Current [employer] 05/12/2024. 2 of 2 elevated fasting blood sugars. Advised to watch diet, eat bedtime snack, and avoid fasting longer than 8 to 10 hours. Will review again next week, and if persists, will schedule for follow up ADAPT with maternal medicine nurse practitioner. 05/20/24: RPM elevated fasting; message sent to PARs to scheduled FU ADAPT for further gestational diabetes management 05/27/20246378-EYT-btzgadhd fasting blood sugars persist. [facility] PARs attempting to contact patient to schedule follow up ADAPT with no success. Left message on patient's voicemail and sent her a message via [employer] attempting to schedule patient. 05/28/24: [facility] visit [...] with bedtime snack (reviewed with Dr. Lemon) 06/17/20242419-EFH-cknkmjtr fasting blood sugars. Multiple missed readings. Sent message to update. Patient sent additional reading via message and fasting blood sugars elevated. Maternal medicine nurse practitioners to review. 06/17/24: RPM reviewed; increased to Metformin 1000 mg at bedtime 06/23/20242038-TJD-dzcdxyvj fasting blood sugars. Maternal medicine nurse practitioners to review 06/23/24: RPM reviewed; increased to Metformin 1500 mg at bedtime 07/01/20242567-UEL-pgqvktyl fasting blood sugars. Maternal medicine nurse practitioners [...] be 95+, will need to increase Metformin. 07/07/20249704-YMZ-oivecwtp fasting blood sugars. Multiple missed post prandial [...] elevated; increase to Metformin 2000mg PO daily 07/29/20241965-YSP-vwkltxrad via blake and messaging. 3 of 7 elevated fasting blood sugars. Multiple missed post prandial values. Sent message to be consistent with testing four times daily and reporting 08/04/20241165-WFJ-ltgksxwk fasting blood sugars. Minimal post prandial values [...] with insurance and desires to purchase Lantus mqm-kt-viidzs with Good Rx coupon - Rx Lantus ordered 08/20/20241340-BCD-eebgyeoi fasting blood sugars. Maternal medicine nurse practitioners to review 08/20/24: RPM reviewed; Pt send msg stating she picked up Toujeo. I sent her a RPM message asking her what insulin she has - Semglee or Toujeo? 08/21/24: Pt reports she had Toujeo. Advised to begin Toujeo 10 units at bedtime. FBS continues to be elevated. 08/25/20242269-TFN-syecywcs fasting blood sugars and some post prandial. Maternal medicine nurse practitioners to review 08/25/24: RPM reviewed; noted as above. Increase Toujeo to 15 units at bedtime 09/01/20243825-QMN-uxpnrbhi fasting blood sugars. Some missed post prandial values but those values overall stable. Sent message to maternal medicine nurse practitioners to review fasting blood sugars. 09/01/24: RPM reviewed; increased to Toujeo 25 units at bedtime 09/09/20249341-SOF-skllnzfp fasting blood sugars. Multiple missed post prandial values. 2 of 4 post prandial dinner values elevated. Maternal medicine nurse practitioners to review. 09/09/24: RPM reviewed; noted as above. Increased Toujeo to 30 units at bedtime 09/17/20240069-GKF-ucppscdy fasting blood sugars. Several missed post prandial values; what is reported is overall stable (< 50% elevated). Maternal medicine nurse practitioners to review. 09/17/24: RPM reviewed; increased to Toujeo 35 units at bedtime 09/23/20240452-HYM-Bvbgmvub missed readings in past week. 3 of 4 elevated fasting blood sugars and 2 of 3 elevated post prandial dinner values. Maternal medicine nurse practitioners to review 09/23/24: RPM reviewed; increased to Toujeo 10 units with breakfast and 40 units at bedtime 09/28/20243978-VTL-ofiwjeqc fasting blood sugars and post prandial dinner [...] Recommend nutrition consult with RDN (Registered Dietitian Associate Professor Plant Pathology). Lifestyle changes are also indicated including optimizing [...] Recommend nutrition consult with RDN (Registered Dietitian Associate Professor Plant Pathology). Lifestyle changes are also indicated including optimizing [...] insurance coverage and cost ([place] [address]). Patient aware not all insurances cover this [...] preeclamptic labs with CBC, serum AST/ALT/creatinine and mezecab-ya-kuubufgbvv ratio or 24-hour urine protein CECY if [...] to get more. 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 Not on file Not on file documented as of this encounter Last Filed Vital Signs Vital Sign Reading Time Taken Comments Blood Pressure 126/82 10/12/2024 2:39 PM EST Pulse - - Temperature - - Respiratory Rate - - Oxygen Saturation - - Inhaled Oxygen Concentration - - Weight 122 kg (269 lb) 10/12/2024 2:39 PM EST Height 165.1 cm (5' 5") 10/12/2024 2:39 PM EST Body Mass Index 44.76 10/12/2024 2:39 PM EST documented in this encounter Progress Notes * James Ervin MD - 10/12/2024 3:19 PM EST NST Only ASSESSMENT assessment with Non-stress Test completed on 10/12/2024 at 37weeks gestation for indication ofdiabetes mellitus heart baseline: 140 bpm Variability: Moderate Decelerations: absent Accelerations: present Contractions: None NST start time: 13:50 NST stop time: 15:00 NST strip reviewed, interpreted, and approved by OB provider, Aziza. NST strip stored in 37 documented in this encounter Plan of Treatment Upcoming Encounters Date Type Department Care Team (Late st Contact Info) Description 10/15/2024 1:45 PM EST Office Visit Gynecology/Obstetrics Mickey Gracia [address] [place] [address] Naomi Fajardo CRNP [address] [place] [address] Basil Non Stress Tests [place] [address] [place] [address] 10/19/2024 1:15 PM EST Office Visit Gynecology/Obstetrics Mickey Gracia [address] [place] [address] Candelaria Oneill CRNP [address] [place] [address] Basil Non Stress Tests [facility] [address] [place] [address] Scheduled Orders Name Type Priority Associated Diagnoses Orde r Schedule URINALYSIS OBSTETRICS, POINT OF CARE Point of Care Testing - Unsolicited Results Routine Chronic hypertension in Ordered: 10/12/2024 Health Maintenance Due Date Last Done Comments [...] Procedure Name Priority Date/Time Associated Diagnosis Comments PROTEIN/ CREATININE RATIO, URINE Routine 10/12/2024 2:56 PM EST Chronic hypertension in documented in this encounter Results * (ABNORMAL) PROTEIN/ CREATININE RATIO, URINE (10/12/2024 2:56 PM EST) Protein/ Creatinine Ratio, Urine 174(H) <150 mg/g 10/12/2024 11:29 PM EST [facility] Protein, Random Urine 24 mg/dL 10/12/2024 11:29 PM EST [facility]AT[facility] Creatinine, Random Urine 138 mg/dL 10/12/2024 11:29 PM EST LABORATORY [facility] Urine Non-blood Collection / Unknown 10/12/2024 2:56 PM EST 10/12/2024 2:56 PM EST Narrative LAB[facility]ATORY [facility] - 10/12/2024 11:29 PM EST Normal: <150 mg/g creatinine High: 150-500 mg/g creatinine Very High: >500 mg/g creatinine Nephrotic: >3000 mg/g creatinine us James Ervin MD LAB URINE ORDERABLES Final Resul t LABORATORY [facility] [address] [place] [address] documented in this encounter Visit Diagnoses Diagnosis Obesity affecting in second trimester- Primary Supervision of high-risk , second trimester BMI 40.0-44.9, adult ([facility]) Body Mass Index 40.0-44.9, adult Hx of preeclampsia, prior , currently with other poor obstetric history Multigravida of advanced maternal age in second trimester Anxiety during in second trimester, antepartum Obesity affecting in second trimester- Primary BMI 40.0-44.9, adult ([facility]) Body Mass Index 40.0-44.9, adult Multigravida of [...] Obesity, Class III, BMI 40-49.9 (morbid obesity) ([facility]) Morbid obesity Supervision of high-risk , unspecified [...] puerperium, unspecified as to episode of care HSV (herpes simplex virus) infection Herpes simplex without mention of complication Hx [...] and were consensually agreed upon. Care Teams Membership Counselor Relationship Specialty Start Date End Date Nitin Cabrera MD PCP - General Family Medicine 10/25/10 documented as of this encounter
--- OUTSIDE RECORDS SUMMARY | 2024-10-18 06:52 | External Medical Summary | Summary of Care ---
Author Name Unknown Organization [facility] Address [address] [place] [address] Phone [phone] Care Team Providers Care Rubber Heel And Sole Press Tender Name Role Phone Nitin Cabrera MD Primary Care Provider [phone] Reason for Visit * Reason Comments Acute Nasal congestion, PN D, cough x 2 weeks, going to be induced on 10/20. Encounter Details Date Type Department Care Team (Late st Contact Info) Description 10/07/2024 3:00 PM EST Office Visit [facility] [address] [place] [address] DecemberNehemiah MD [address] [place] [address] Acute non-recurrent frontal sinusitis*; Obesity, Class III, BMI 40-49.9 (morbid obesity) ([facility]); HTN, goal below 140/90; Insulin controlled gestational diabetes mellitus (GDM) in third trimester; Hx of preeclampsia, prior , currently Allergies Active Allergy Reactions Criticality Noted Date Comments Molds & Smuts Other (Please comment) High 03/10/2014 Pollen Other (Please comment) High 03/10/2014 documented as of this encounter (statuses as of 10/07/2024) Medications ZADITOR 0.025 % OP SOLNIndications: Conjunctivitis, allergic one drop each eye every 8-12 hrs for eye itching 1 Bottle 3 3 Active Additional Information Patient not taking.Reported on 10/01/2024 CETIRIZINE HCL 10 MG PO CAPS daily Active Blood Pressure Monitoring (BLOOD PRESSURE CUFF[place] [facility] [place]. Use as directed. 1 Each 0 Active Additional Information Patient not taking.Reported on 10/01/2024 27-0.8 MG Oral Tablet Take by mouth. [...] Active Additional Information Patient not taking.Reported on 10/07/2024 Breast PumpIndications: Breast feeding status of mother ELOISE 03/19/23, Z39.1, double electric pump 1 Each 3 Active [facility] Flex System w/Device KitIndications:D iet controlled gestational diabetes mellitus (GDM), antepartum Use to test blood sugars 4 times daily (fasting, 1 hour after breakfast, lunch, and dinner) 1 Kit 4 Active [employer] Lancets 33GIndications:D iet controlled gestational diabetes mellitus [...] Active Additional Information Patient not taking.Reported on 10/07/2024 [facility] In Vitro Strip (Glucose Blood) Use to [...] as of this encounter (statuses as of 10/07/2024) Active Problems Problem Noted Date Diagnosed Date [...] daily. Patient monitors blood sugars at work ([employer]). BP stable thus far in current . [...] assessment of proteinuria (24-hour urine protein or wprsiul-we-ptmbzfcefp ratio) and CBC, serum AST/ALT/creatinine. If patient [...] MFM ADAPT consult complete. Referred to [facility]. Instructions provided to report blood sugars each week for MFM review. Past history of diet controlled gestational diabetes. Reviewed diet & exercise recommendations. Will start having a bedtime snack, discussed fasting no longer than 8-10 hours overnight. Continues to work on diet to make better food choices. 05/13/2024-Enrolled in Current [employer] 05/12/2024. 2 of 2 elevated fasting blood sugars. Advised to watch diet, eat bedtime snack, and avoid fasting longer than 8 to 10 hours. Will review again next week, and if persists, will schedule for follow up ADAPT with maternal medicine nurse practitioner. 05/20/24: RPM elevated fasting; message sent to PARs to scheduled FU ADAPT for further gestational diabetes management 05/27/20245144-FXR-cmrcvjwz fasting blood sugars persist. [facility] PARs attempting to contact patient to schedule follow up ADAPT with no success. Left message on patient's voicemail and sent her a message via [employer] attempting to schedule patient. 05/28/24: [employer] visit [...] with bedtime snack (reviewed with Dr. Lemon) 06/17/20246060-EHZ-hekhdzzl fasting blood sugars. Multiple missed readings. Sent message to update. Patient sent additional reading via message and fasting blood sugars elevated. Maternal medicine nurse practitioners to review. 06/17/24: RPM reviewed; increased to Metformin 1000 mg at bedtime 06/23/20245666-ZVD-vnjthscx fasting blood sugars. Maternal medicine nurse practitioners to review 06/23/24: RPM reviewed; increased to Metformin 1500 mg at bedtime 07/01/20243586-HGL-hgvuqsim fasting blood sugars. Maternal medicine nurse practitioners [...] be 95+, will need to increase Metformin. 07/07/20249572-XKI-ajvbjisp fasting blood sugars. Multiple missed post prandial [...] elevated; increase to Metformin 2000mg PO daily 07/29/20246803-ZVL-kbtgjazqp via [employer] and messaging. 3 of 7 elevated fasting blood sugars. Multiple missed post prandial values. Sent message to be consistent with testing four times daily and reporting 08/04/20240865-JBH-pnegipxm fasting blood sugars. Minimal post prandial values [...] with insurance and desires to purchase Lantus jjr-ct-ihtgxj with Good Rx coupon - Rx Lantus ordered 08/20/20244256-TMD-aejlmcyy fasting blood sugars. Maternal medicine nurse practitioners to review 08/20/24: RPM reviewed; Pt send msg stating she picked up Toujeo. I sent her a RPM message asking her what insulin she has - Semglee or Toujeo? 08/21/24: Pt reports she had Toujeo. Advised to begin Toujeo 10 units at bedtime. FBS continues to be elevated. 08/25/20247948-[id number]-xylaczcm fasting blood sugars and some post prandial. Maternal medicine nurse practitioners to review 08/25/24: RPM reviewed; noted as above. Increase Toujeo to 15 units at bedtime 09/01/20242764-ZXQ-bwpcdwfs fasting blood sugars. Some missed post prandial values but those values overall stable. Sent message to maternal medicine nurse practitioners to review fasting blood sugars. 09/01/24: RPM reviewed; increased to Toujeo 25 units at bedtime 09/09/20246572-TGZ-mvrkukds fasting blood sugars. Multiple missed post prandial values. 2 of 4 post prandial dinner values elevated. Maternal medicine nurse practitioners to review. 09/09/24: RPM reviewed; noted as above. Increased Toujeo to 30 units at bedtime 09/17/20247867-JSQ-lhtcvoee fasting blood sugars. Several missed post prandial values; what is reported is overall stable (< 50% elevated). Maternal medicine nurse practitioners to review. 09/17/24: RPM reviewed; increased to Toujeo 35 units at bedtime 09/23/20247865-CQZ-Ziqfwtmm missed readings in past week. 3 of 4 elevated fasting blood sugars and 2 of 3 elevated post prandial dinner values. Maternal medicine nurse practitioners to review 09/23/24: RPM reviewed; increased to Toujeo 10 units with breakfast and 40 units at bedtime 09/28/20246137-KJO-duuqybxw fasting blood sugars and post prandial dinner [...] Recommend nutrition consult with RDN (Registered Dietitian Entertainment Dancer). Lifestyle changes are also indicated including optimizing [...] Recommend nutrition consult with RDN (Registered Dietitian Entertainment Dancer). Lifestyle changes are also indicated including optimizing [...] insurance coverage [place] cost ([place] [address]). Patient aware not all insurances cover this [...] increased risk of congenital/structural anomalies. RECOMMENDATIONS: Recommend [facility] anatomy ultrasound at 19-20 weeks gestation. Assessment [...] preeclamptic labs with CBC, serum AST/ALT/creatinine and efjnmsz-xe-zlhxuaauee ratio or 24-hour urine protein CECY if [...] as of this encounter (statuses as of 10/07/2024) Resolved Problems Problem Noted Date Diagnosed Date [...] as of this encounter (statuses as of 10/07/2024) Immunizations Name Administration Dates Next Due DTaP [...] money to get more. Never true 06/2024 [place] Depression Scale Answer Date Recorded [place] Depression Scale Total 6 03/11/2024 The thought [...] Industry Job Start Date Job End Date [employer] Not on file Not on file Not on file documented as of this encounter Last Filed Vital Signs Vital Sign Reading Time Taken Comments Blood Pressure 135/97 10/07/2024 3:21 PM EST Pulse 88 10/07/2024 2:59 PM EST Temperature 36.2 C (97.1 F) 10/07/2024 2:59 PM ES T Respiratory Rate 16 10/07/2024 2:59 PM EST Oxygen Saturation - - Inhaled Oxygen Concentration - - Weight 122.5 kg (270 lb) 10/07/2024 2:59 PM EST Height - - Body Mass Index 44.93 09/21/2024 2:24 PM EST documented in this encounter Progress Notes * Nehemiah Johnson MD - 10/07/2024 3:11 PM EST Images from the original note were not included. Subjective Gale Cross is a 34 year old female that presents for Acute (Nasal congestion, PND, cough x 2 weeks, going to be induced on 10/20. ) History of Present Illness Gale Cross is a 34 year old female with insulin controlled gestational diabetes, hypertension, obesity, and history of preeclampsia who presents with sinus pressure and congestion. She has been experiencing sinus pressure and congestion for the past two weeks. Initially, her entire family had congestion and cough around [place], which improved but flared up again recently. She describes clear post-nasal drainage, but notes that when sleeping, she coughs and produces yellowish-green mucus in the morning. She also feels more short of breath lately. No fever has been noted at home. Her blood pressure was recorded at 132/97 and 135/97, which is higher than her usual readings. She has a history of preeclampsia in previous pregnancies and has been induced before due to this condition. She notes a headache over the last few days that has only been minimally responsive to tylenol.She denies right upper quadrant pain, leg swelling, vision changes. She is 37 weeks and one day and is scheduled for induction at the beginning of October. She experiences nausea and some vomiting, which she attributes to the drainage, as it only occurs duringthose times. She has been using Flonase occasionally when symptoms are severe and takes Zyrtec every night. Objective Vitals: 10/07/24 1459 10/07/24 1521 Temp: 97.1 F (36.2 C) Pulse: 88 Resp: 16 BP: 132/97 135/97 Physical Exam VITALS: BP- 132/97 Physical Exam Vitals reviewed. Constitutional: General: She is not in acute distress. Cardiovascular: Rate and Rhythm: Normal rate and regular rhythm. Heart sounds: No murmur heard. Pulmonary: Effort: Pulmonary effort is normal. No respiratory distress. Breath sounds: Normal breath sounds. Musculoskeletal: Cervical back: Neck supple. Right lower leg: No edema. Left lower leg: No edema. Lymphadenopathy: Cervical: No cervical adenopathy. Neurological: Mental Status: She is alert. I have reviewed the following results: Results Assessment and Plan Assessment & Plan Sinusitis Two weeks of sinus pressure, congestion, post-nasal drainage, and cough. No fever. Symptoms worsen at night and in the morning. Clear drainage with some yellowish-green sputum in the morning. Currently using Flonase and Zyrtec. No signs of pneumonia, strep throat, or ear infection on examination. -Consult with OB-[facility] RN regarding the use of amoxicillin for treatment. -If approved by [facility] RN, start amoxicillin 500mg twice daily for 5 days. Prescription sent to [facility]. Hypertension in - History of preeclampsia Blood pressure elevated at 132/97 and 135/97 with headache minimally responsive to tylenol over thelast few days. History of preeclampsia in previous pregnancies. -Discussed case with OB who discussed with cushion former OB provider. -Recommended patient go to [facility] for triage. -Repeat blood pressure measurement to confirm. Gestational Diabetes Insulin-controlled. No changes or concerns discussed in this visit. -Continue current management. Acute non-recurrent frontal sinusitis (Primary) - Amoxicillin 875 MG Oral Tablet; Take 1 Tablet by mouth in the morning and 1 Tablet before bedtime. Do all this for 5 days. Obesity, Class III, BMI 40-49.9 (morbid obesity) ([facility]) HTN, goal below 140/90 Insulin controlled gestational diabetes mellitus (GDM) in third trimester Hx of preeclampsia, prior , currently Wrap-Up Follow Up: Return if symptoms worsen or fail to improve. Time: I spent a total of 40-54 minutes (exact time 45 mins) on the date of service in preparation, delivery, and documentation of the care provided to Gale Cross excluding any time spent in the performance of separately billed services. Text in this note was generated using an ambient documentation service. I discussed the use of a device to record and summarize our discussion today. All persons present during the encounter consented to its use. documented in this encounter Nursing Notes * Christy Land LPN - 10/07/2024 2:59 PM EST The patient has been properly identified by confirmation of name and date of . Chief Complaint Patient presents with Acute Nasal congestion, PND, cough x 2 weeks, going to be induced on 10/20. documented in this encounter Plan of Treatment Upcoming Encounters Date Type Department Care Team (Late st Contact Info) Description 10/08/2024 1:45 PM EST Office Visit Gynecology/Obstetrics [facility] [address] [place] [address] Naomi Fajardo CRNP [address] [place] [address] Basil Non Stress Tests [facility] [address] [place] [address] 10/12/2024 2:30 PM EST Office Visit Gynecology/Obstetrics [facility] [address] [place] [address] James Ervin MD [address] [place] [address] Basil Non Stress Tests [facility] [address] [place] [address] 10/15/2024 1:45 PM EST Office Visit Gynecology/Obstetrics [facility] [address] [place] [address] Naomi Fajardo CRNP [address] [place] [address] Basil Non Stress Tests [facility] [address] [place] [address] 10/19/2024 1:15 PM EST Office Visit Gynecology/Obstetrics [facility] [address] [place] [address] Candelaria Oneill CRNP [address] [place] [address] Gracia, Non Stress Tests [facility] [address] [place] [address] 10/20/2024 4:00 PM EST Office Visit [facility] [place] [facility] [address] [place] [phone] Nitin Cabrera MD [address] [place] [address] Health Maintenance Due Date Last Done Comments Depression Screening 04/14/2021 04/14/2020 COVID-19 Vaccine ( season) 2024 GFR 03/11/2025 03/11/2024, 02/16, 08/10/2022, Additional history exists Pap Smear 04/11/2026 04/11/2023, 08/19, 09/01/2020, Additional history exists Diabetes Screening 05/29/2027 05/29/2024, 0 03/11/2024, 05/03/2023, Additional history exists Cervical Cancer Screening 04/11/2028 [...] high-risk , second trimester BMI 40.0-44.9, adult ([facility]) Body Mass Index 40.0-44.9, adult Hx of preeclampsia, prior , currently with other poor obstetric history Multigravida of advanced maternal age in second trimester Anxiety during in second trimester, antepartum Obesity affecting in second trimester- Primary BMI 40.0-44.9, adult ([facility]) Body Mass Index 40.0-44.9, adult Multigravida [...] Obesity, Class III, BMI 40-49.9 (morbid obesity) ([facility]) Morbid obesity Supervision of high-risk , unspecified trimester , supervision, high-risk, first trimester Obesity during Multigravida of advanced maternal age in first trimester Diet controlled gestational diabetes mellitus (GDM) in second trimester- Primary Supervision of high risk in second trimester Unspecified high-risk with 15 completed weeks gestation Obesity during - Primary Obesity, Class III, BMI 40-49.9 (morbid obesity) ([facility]) Morbid obesity Multigravida of advanced maternal age [...] ultrasonics 36 weeks gestation of state, incidental Acute non-recurrent frontal sinusitis- Primary Obesity, Class III, BMI 40-49.9 (morbid obesity) (HCC) Morbid obesity HTN, goal below 140/90 Unspecified essential hypertension Insulin controlled gestational diabetes mellitus (GDM) in third trimester Hx of preeclampsia, prior , currently with other poor obstetric history documented in this encounter Advance Directives * Full Code (Latest Code Status on File) Date Activated Date Inactivated Comments 06/27/2018 9:32 AM 06/27/2018 4:16 PM This order r eflects the patients wishes and were consensually agreed upon. Care Teams Rub[employer] Heel And Sole Press Tender Relationship Specialty Start Date End Date Nitin Cabrera MD PCP - General Family Medicine 10/25/10 documented as of this encounter
[2024-10-18] MEDS ORDERED: LIDOCAINE 1% LOCAL 20 ML VIAL INFIL PRN (08:02)
[2024-10-18] MEDS: PENICILLIN GK 6 MU in DEXTROSE 5% 250 ML IV STA (08:37)
[2024-10-18] MEDS: LACTATED RINGER'S 1,000 ML IV PRN (08:37)
[2024-10-18 08:42] LABS: Hematocrit (blood only) 41.6 % (37.0-47.0); Hemoglobin 14.2 g/dl (12.0-16.0); Mean Corpuscular Hemoglobin 31.2 pg (25.0-34.0); Mean Corpuscular Hgb Conc 34.1 g/dL (32.0-36.0); Mean Corpuscular Volume 91.4 fL (80.0-100.0); Mean Platelet Volume 10.5 fL (9.4-12.4); Platelet Count 259 K/uL (130-400); RDW Coefficient of Variation 13.8 % (11.5-14.5); Red Blood Count 4.55 M/uL (4.20-5.40); White Blood Count 14.12 K/ul (4.8-10.8)
--- NOTE | 2024-10-18 10:06 | Obstetrical Progress Note ---
Date of Service October 18, 2024 Assessment & Plan (1) : Plan: Pt is 34yo at 38.5 weeks GDMA2 on insulin Present with irregular contractions and bloody disch. FHR CAT1 Ctx irregular VE ; 3cm/thin cervix with bulging membranes GBs +ve Plan; Admit Start IV antibx Anticipate VD Results & Data Vital Signs (Past 12 Hours) Vital Signs Temp Pulse Resp BP 10/18/24 07:25 37.0 C 99 H 18 130/92 10/18/24 07:03 99 H 130/92 10/18/24 07:02 18 10/18/24 07:02 37.0 C 18
[2024-10-18] MEDS: PENICILLIN GK 3 MU in DEXTROSE 5% 100 ML IV SCH (12:15)
--- NOTE | 2024-10-18 13:18 | Anesthesiology Consultation ---
Date of Service October 18, 2024 Assessment & Plan Chart Review Chart Review: Acceptable Risk for Surgery, Patient NOT seen in Pre Admission Testing and Acceptable Risk for Labor Epidural Consults Requested none ASA ASA3 Proposed Anesthesia Anesthesia Type: Labor Epidural and CSE History Height/Weight Height: 5 ft 5 in Weight: 122.016 kg Allergies Allergy/AdvReac Type Severity Reaction Status Date / Time mold Allergy Mild . Verified 10/18/24 07:13 pollen extracts Allergy Mild . Verified 10/18/24 07:13 Medications Home Medications Medication Instructions Recorded Confirmed Last Taken cetirizine 10 mg tablet (Zyrtec) 10 mg PO DAILY 07/28/19 10/18/24 10/17/24 21:00 docusate sodium 100 mg capsule 100 mg PO DAILY 07/28/19 10/18/24 10/17/24 21:00 (Colace) vitamins-iron fumarate 27 1 tab PO DAILY 07/28/19 10/18/24 10/17/24 21:00 mg iron-folic acid 0.8 mg tablet ( Vitamin) sertraline 100 mg tablet (Zoloft) 100 mg PO DAILY 03/03/23 10/18/24 10/17/24 21:00 Nifedical XL 1 tab PO DAILY 10/07/24 10/18/24 10/17/24 21:00 Valtrex 500 mg PO BID 10/18/24 10/18/24 10/17/24 21:00 aspirin 81 mg tablet 81 mg PO DAILY 10/18/24 10/18/24 10/17/24 21:00 insulin glargine U-300 conc 300 50 unit subcut DAILY 10/18/24 10/18/24 10/17/24 21:00 unit/mL (1.5 mL) subcutaneous pen ([place] SoloStar U-300 Insulin) Active Medications Generic Name Dose Route Start Last Admin Trade Name Freq PRN Reason Stop Dose Admin Lactated Ringer's 1,000 mls @ 125 mls/hr 10/18/24 08:02 10/18/24 12:15 Lr IV 10/19/24 08:01 125 mls/hr .Q8H PRN Infusion L&D Protocol Protocol Penicillin G Potassium 3 mu/ 106 mls @ 100 mls/hr 10/18/24 11:45 10/18/24 12:15 Dextrose IV 10/28/24 11:44 100 mls/hr Q4H HUMBERTO Administration Past Medical History Medical History Chronic hypertension Pre-eclampsia during in third trimester, antepartum Anxiety Genital herpes GDM (gestational diabetes mellitus) SAB (spontaneous ) 2021 (spontaneous vaginal delivery) 2018 Migraine gerd morbid obesity Exercise / Class Metabolic Activity II 4-5 Yardwork/Stairs/Walk up hill Past Anesthesia History No Hx of Anesthesia Complications and No Family Hx of Anesthesia Complications History of PONV No Hx of PONV and No Hx of Motion Sickness Social History Smoking Status: Never smoker Hx Alcohol Use: No Hx Substance Use: No substance use type: does not use Physical Exam Vital Signs Last Vital Signs Temp 36.8 C 10/18/24 13:05 Pulse 99 H 10/18/24 12:50 Resp 18 10/18/24 13:05 BP 144/94 H 10/18/24 12:50 Testing Laboratory Results 10/18/24 08:15 Blood Type O Positive 10/18/24 08:15 Antibody Screen NEGATIVE 10/18/24 08:15 10/18/24 08:15 POC Glucose 84
[2024-10-18] MEDS ORDERED: OXYTOCIN 30 UNITS/NSS 30 UNITS/500 ML BAG IV PRN ×2 (13:20→16:00)
--- NOTE | 2024-10-18 13:20 | Obstetrical Progress Note ---
Date of Service October 18, 2024 Assessment & Plan (1) : Plan: Pt doing well FHR CAT1 Ctx : minimal Received 2 doses antibx. VE 4-5/50/-2 AROM with Amnio hook- clear fluid Will augment with Pitocin if ctx do not increase in frequency and or intensity Results & Data Vital Signs (Past 12 Hours) Vital Signs Temp Pulse Resp BP 10/18/24 13:05 18 10/18/24 13:05 36.8 C 18 10/18/24 12:50 99 H 10/18/24 12:50 144/94 H 10/18/24 12:34 115 H 10/18/24 12:34 146/106 H 10/18/24 07:25 37.0 C 99 H 18 130/92 10/18/24 07:03 99 H 130/92 10/18/24 07:02 18 10/18/24 07:02 37.0 C 18
[2024-10-18] MEDS: BUPIVACAINE 0.25% PF 30 ML VIAL ONE (13:45)
[2024-10-18] MEDS: fentaNYL citrate PF 100 MCG/2 ML VIAL ONE (13:45)
[2024-10-18] MEDS ORDERED: ONDANSETRON INJ 2 MG/ML 2 ML VIAL IV PRN (14:09)
[2024-10-18] MEDS ORDERED: fentANYL 2 MCG/ML BUPIVacaine 0.125%-NSS 100ML BAG EPI PRN (14:09)
[2024-10-18] MEDS ORDERED: fentaNYL citrate PF 100 MCG/2 ML VIAL EPI PRN (14:09)
[2024-10-18] MEDS ORDERED: diphenhydrAMINE 50 MG/ML VIAL IV PRN (14:09)
[2024-10-18] MEDS ORDERED: NALOXONE HCL 0.4 MG/1 ML VIAL/CARP IV PRN (14:09)
[2024-10-18] MEDS ORDERED: ROPIVACAINE 0.5% PF 5 MG/ML 20 ML VIAL EPI PRN (14:09)
[2024-10-18] MEDS ORDERED: BUPIVACAINE 0.25% PF 30 ML VIAL EPI PRN (14:09)
[2024-10-18] MEDS ORDERED: SODIUM CHLORIDE 0.9% PF INJ 10 ML VIAL EPI PRN (14:09)
[2024-10-18] MEDS ORDERED: PROMETHAZINE 6.25 MG/50.25 ML BAG IV PRN (14:09)
[2024-10-18] MEDS ORDERED: LIDOCAINE 2% MPF LOCAL 5 ML VIAL EPI PRN (14:09)
[2024-10-18] MEDS ORDERED: NALBUPHINE HCL INJ 10 MG/ML AMP IV PRN (14:09)
[2024-10-18] MEDS ORDERED: NALOXONE HCL 1 MG in SODIUM CHLORIDE 0.9% 1,000 ML IV PRN (14:09)
[2024-10-18] MEDS ORDERED: ePHEDrine sulfate 50 MG/ML AMP IV PRN (14:09)
[2024-10-18] MEDS: fentANYL 2 MCG/ML BUPIVacaine 0.125%-NSS 100ML BAG ONE (14:11)
[2024-10-18] MEDS: ePHEDrine sulfate 50 MG/ML AMP ONE (14:15)
[2024-10-18] MEDS: SODIUM CHLORIDE 0.9% PF INJ 10 ML VIAL ONE (14:20)
[2024-10-18] MEDS: LIDOCAINE 2%/EPINEPHRINE 1:200,000 20 ML PF ONE (14:24)
[2024-10-18] MEDS: SODIUM CHLORIDE 0.9% PF INJ 10 ML VIAL EPI STA (14:25)
[2024-10-18] MEDS: LIDOCAINE 2%/EPINEPHRINE 1:200,000 20 ML PF EPI STA (14:26)
[2024-10-18] MEDS: BUPIVACAINE 0.25% PF 30 ML VIAL EPI STA (14:26)
[2024-10-18] MEDS: fentaNYL citrate PF 100 MCG/2 ML VIAL EPI STA (14:31)
[2024-10-18] MEDS: OXYTOCIN 30 UNITS/NSS 30 UNITS/500 ML BAG IV PRN (15:35)
[2024-10-18] MEDS ORDERED: HYDROCORTISONE ACETATE 25 MG SUPP PR PRN (16:00)
[2024-10-18] MEDS ORDERED: bisacodyL 10 MG SUPP PR PRN (16:00)
--- NOTE | 2024-10-18 16:00 | Delivery Summary ---
Vaginal Delivery Summary Date of Service October 18, 2024 Vaginal Delivery Summary DELIVERY NOTE Patient delivered a live male in occiput presentation there was no nuchal cord which was easily reduced. Infant was delivered and placed on mother's abdomen. Delayed cord clamping was performed. Cord blood is obtained Cord gasses are not obtained Meconium is absent Placenta is spontaneously delivered. Placenta appears grossly normal and has 3 vessel cord Inspection of the perineum showed a second-degree midline laceration. Laceration is repaired in layers with 2-0 Vicryl in layers Rectal exam post repair showed good sphincter tone no sutures palpated in the rectum. Quantitative blood loss is 153 cc per Infants weight and scores are in the pediatric record Mother and baby are stable in in the recovery
--- NOTE | 2024-10-18 16:49 | Anesthesia Procedure Note ---
Date of Service October 18, 2024 Anesthesia Post Epidural Note Vital Signs Vital Signs: Temp Pulse Resp BP Pulse Ox 36.8 C 98 H 20 113/72 98 10/18/24 15:20 10/18/24 16:43 10/18/24 15:20 10/18/24 16:42 10/18/24 16:43 Notes Mental Status: alert / awake / arousable Nausea / Vomiting: adequately controlled Pain: adequately controlled Airway Patency, RR, SpO2: stable & adequate BP & HR: stable & adequate Hydration State: stable & adequate Neuraxial Anesthesia: was administered and sensory block is resolving Anesthetic Complications: no major complications apparent Epidural: Removed without complications and With tip intact
[2024-10-18] MEDS: DOCUSATE SODIUM 100 MG CAP PO SCH (19:43)
[2024-10-18] MEDS: SERTRALINE HCL 100 MG TABLET PO SCH (19:43)
[2024-10-18] MEDS: CETIRIZINE ORAL SOLN 1 MG/ML PO SCH (19:43)
[2024-10-18] MEDS: IBUPROFEN 600 MG TAB PO PRN (19:44)
[2024-10-18 19:47] VITALS: RESP 16
[2024-10-18] MEDS: NIFEdipine EXTENDED REL 30 MG TABCR PO SCH (20:34)
[2024-10-19] MEDS: BENZOCAINE 20% SPRY 85 APPLN/85 GM CAN EXT PRN (07:30)
[2024-10-19] MEDS: ACETAMINOPHEN 325 MG TAB PO PRN (07:33)
[2024-10-19] MEDS: PRENATAL VITAMIN 1 TAB PO SCH (07:33)
[2024-10-19 07:56] LABS: Hematocrit (blood only) 36.6 % (37.0-47.0); Hemoglobin 12.5 g/dl (12.0-16.0); Mean Corpuscular Hemoglobin 31.6 pg (25.0-34.0); Mean Corpuscular Hgb Conc 34.2 g/dL (32.0-36.0); Mean Corpuscular Volume 92.4 fL (80.0-100.0); Mean Platelet Volume 10.5 fL (9.4-12.4); Platelet Count 226 K/uL (130-400); RDW Coefficient of Variation 13.9 % (11.5-14.5); RDW Standard Deviation 46.3 fL (36.4-46.3); Red Blood Count 3.96 M/uL (4.20-5.40); White Blood Count 16.04 K/ul (4.8-10.8)
[2024-10-19] MEDS: DIPHTHER/TETAN/PERTUS Vaccine (Tdap, Adol/Adult) 0.5mL IM ONE (09:00)
[2024-10-19] MEDS ORDERED: NIFEdipine 10 MG CAP PO SCH (09:00)
[2024-10-19] MEDS ORDERED: Nursing to Pharmacy Communication SCH (09:15)
--- NOTE | 2024-10-19 09:55 | Communication Note ---
Date of Service: October 19, 2024 Pt seen this am;no c/o postural H/A, or H/A at all.
--- NOTE | 2024-10-19 11:48 | Obstetrical Progress Note ---
Date of Service October 19, 2024 Subjective Ambulation: ambulating normally Voiding: no voiding problems Passing Gas:: Yes Diet Tolerance:: regular diet Lochia:: Small Feeding Type:: breast feeding Current Pain Level(1-10): 0 DOING WELL. WANTS TO GO HOME. Physical Exam Constitutional WD/WN, vitals as above Cardiovascular Rate/Rhythm: regular rate Gastrointestinal (Abdomen) Inspection/Auscultation: abdomen normal to inspection abdomen soft and non-tender fundus firm below U Musculoskeletal Extremities: extremities normal to inspection Skin no rashes, warm and dry Neurologic patellar DTR's 2+ bilat, sensation intact Psychiatric A+Ox3, euthymic affect Results & Data Vital Signs (Past 12 Hours) Vital Signs Temp Pulse Resp BP Pulse Ox O2 Del Method 10/19/24 07:35 36.7 C 90 16 126/86 97 Room Air 10/19/24 04:00 36.8 C 88 16 122/86 99 Room Air 10/19/24 00:09 37.0 C 83 16 104/71 99 Room Air Laboratory Results 10/18/24 10/19/24 08:15 07:03 WBC 14.12 H 16.04 H RBC 4.55 3.96 L Hgb 14.2 12.5 Hct 41.6 36.6 L MCV 91.4 92.4 MCH 31.2 31.6 MCHC 34.1 34.2 RDW Std Deviation 46.0 46.3 RDW Coeff of Jaja 13.8 13.9 Plt Count 259 226 MPV 10.5 10.5 POC Glucose 84 Treponema pallidum Ab Negative Blood Type O Positive Antibody Screen NEGATIVE
[2024-10-19 13:17] VITALS: TEMP 97.9; O2SAT 96
[2024-10-19 16:01] VITALS: BP 122/79; PULSE 89
[2024-10-19] MEDS ORDERED: bisacodyL 5 MG TABEC PO SCH (20:00)
[2024-10-19] MEDS ORDERED: CETIRIZINE ORAL SOLN 1 MG/ML PO SCH (21:00)
[2024-10-19] MEDS ORDERED: SERTRALINE HCL 100 MG TABLET PO SCH (21:00)
== END 2024-10-19 17:40 | disposition home or self-care (01) | DRG 807 ==
LOC: OPB 06:42 → 4S1 06:44 → 4E2 18:00